=== PATIENT | female | born 1970 | race Caucasian/White ===

== ENCOUNTER 2022-08-25 21:38 | Emergency (ER) | payer MEDICARE, MEDICAID, SELFPAY ==
[2022-08-25 21:57] VITALS: BP 141/101; PULSE 99; RESP 20; TEMP 36.5; O2SAT 98; BMI 37.1
--- NOTE | 2022-08-25 22:15 | ED_ITS ---
HPI - Wound/Laceration General Time Seen by Provider: 22:15 Date Seen: 08/25/22 Chief Complaint: Laceration/Wound Stated Complaint: cut on left pointer middle finger tip. Time Seen by Provider: 08/25/22 21:43 Source: patient and RN notes reviewed Mode of arrival: ambulatory Limitations: no limitations History of Present Illness HPI narrative: Patient is a 52-year-old female coming in to the ER with lacerations sustained to her left 2nd and 3rd fingers. She was using an Exacto knife to cut something and cut her fingers. Her left 2nd finger is the deep wrist and the worse. She thinks that 3rd finger is just a small cut and really stopped bleeding as it had super glue on it as well. Her 2nd finger did bleed a lot. Denies any numbness tingling. She believes her tetanus is way overdue and would have it updated today. Related Data Home Medications Medication Instructions Recorded Confirmed acetaminophen 500 mg tablet 500 mg PO Q6H 08/25/22 08/25/22 apremilast 30 mg tablet (Otezla) 30 mg PO 08/25/22 aspirin 81 mg chewable tablet 1 tab PO DAILY 08/25/22 08/25/22 buspirone 30 mg tablet 30 mg PO DAILY 08/25/22 08/25/22 celecoxib 100 mg capsule (Celebrex) 100 mg PO BID 08/25/22 08/25/22 doxylamine succinate 25 mg tablet 12.5 - 25 mg PO QHS PRN 08/25/22 08/25/22 (Unisom (doxylamine)) duloxetine 60 mg capsule,delayed 120 mg PO DAILY 08/25/22 08/25/22 release epinephrine 0.3 mg/0.3 mL 0.3 mg IM .each time PRN 08/25/22 08/25/22 injection, auto-injector gabapentin 600 mg tablet 600 mg PO Q12H 08/25/22 08/25/22 ibuprofen 800 mg tablet 800 mg PO Q8H 08/25/22 08/25/22 lisinopril 2.5 mg tablet 2.5 mg PO DAILY 08/25/22 08/25/22 loratadine 10 mg tablet 20 mg PO Q24H 08/25/22 08/25/22 lorazepam 0.5 mg tablet 0.5 - 1 mg PO Q8H PRN 08/25/22 08/25/22 lorazepam 1 mg tablet 1 mg PO QHS 08/25/22 08/25/22 metformin 500 mg tablet 500 mg PO DAILY 08/25/22 08/25/22 omeprazole 40 mg capsule,delayed 40 mg PO DAILY 08/25/22 08/25/22 release risankizumab-rzaa 150 mg/mL 150 mg subcut Q12W 08/25/22 08/25/22 subcutaneous pen injector (Skyrizi) semaglutide 0.25 mg or 0.5 mg (2 0.25 mg subcut QWEEK 08/25/22 08/25/22 mg/1.5 mL) subcutaneous pen injector (Ozempic) topiramate 50 mg tablet (Topamax) 100 mg PO QHS 08/25/22 08/25/22 tramadol 50 mg tablet 50 mg PO Q8H 08/25/22 08/25/22 Allergies Allergy/AdvReac Type Severity Reaction Status Date / Time [id number]-CfG Reductase Allergy Severe suicidal Verified 08/25/22 21:51 Inhibitor thoughts trazodone Allergy Severe suicidal Verified 08/25/22 21:51 ideation walnut Allergy Unknown Verified 08/25/22 21:51 Review of Systems Narrative: As per HPI [facility] Medical History (Updated 08/25/22 @ 22:42 by Zoraida Kebede MD) Adjustment disorder with depressed mood Agoraphobia with panic attacks Androgenic alopecia BPPV (benign paroxysmal positional vertigo) Chronic GERD Controlled type 2 diabetes mellitus without complication, with long-term current use of insulin Depression Dysphagia, unspecified Generalized anxiety disorder HTN (hypertension) IBS (irritable bowel syndrome) Impaired fasting glucose Iron deficiency anemia Irritable bowel syndrome with both constipation and diarrhea Migraine with status migrainosus, not intractable Morbid obesity Muscular deconditioning Nightmare Numbness and tingling in left arm Orthostatic hypotension SIRIA (obstructive sleep apnea) PCOS (polycystic ovarian syndrome) Plantar fasciitis PMDD (premenstrual dysphoric disorder) POTS (postural orthostatic tachycardia syndrome) Psoriasis, unspecified PTSD (post-traumatic stress disorder) Pulmonary nodule RLS (restless legs syndrome) Seasonal affective disorder Suicidal ideations Tachycardia, unspecified Tobacco use disorder Vitamin D deficiency Surgical History (Updated 08/25/22 @ 22:10 by Alida Becerril RN) H/O total hysterectomy H/O: hysterectomy History of salpingo-oophorectomy S/P breast lumpectomy Status post open reduction and internal fixation (ORIF) of fracture Social History Smoking Status: Never smoker Do you use any of these nicotine containing products: None Second hand tobacco smoke exposure: No How often do you have a drink containing alcohol: never How often do you have six or more drinks on one occasion: Never AUDIT-C Alcohol total score: 0 Non-prescribed substance use: denies use Exam Const: Vital Signs, click to edit/add: Vital Signs - 24 hr 08/25/22 21:57 Temperature 97.7 F Pulse Rate [Pulse Oximeter] 99 Respiratory Rate 20 Blood Pressure [Ri ght Forearm] 141/101 H Pulse Oximetry 98 Documenting provider has reviewed patient's vital signs: yes Common normals: no apparent distress Extremity: Other: On the pad of the left 2nd finger along the lateral edge there is no En situated 3 force cm laceration into the subcutaneous tissue. It does start actively bleeding again as it opened up the wound edges. I do think that this should be sutured. On the lateral side of the 3rd pad of the finger, there is a small about 2 mm cut that is just very superficial, not bleeding. Patient opted to let this heal on its own and not have any sutures. I do think that is reasonable. She had full range of motion of her fingers, neurovascular intact but the 2nd finger did start actively bleeding once I manipulated it. Course Vital Signs Vital signs: Initial Vital Signs Temperature 97.7 F 08/25/22 21:57 Temperature Source Temporal Artery Scan 08/25/22 21:57 Pulse Rate 99 08/25/22 21:57 Respiratory Rate 20 08/25/22 21:57 Blood Pressure 141/101 H 08/25/22 21:57 Blood Pressure Mean 114 08/25/22 21:57 Pulse Oximetry 98 08/25/22 21:57 Vital Signs Temperature 97.7 F 08/25/22 21:57 Pulse Rate 99 08/25/22 21:57 Respiratory Rate 20 08/25/22 21:57 Blood Pressure 141/101 H 08/25/22 21:57 Pulse Oximetry 98 08/25/22 21:57 Temperature 97.7 F 08/25/22 21:57 Pulse Rate 99 08/25/22 21:57 Respiratory Rate 20 08/25/22 21:57 Blood Pressure 141/101 H 08/25/22 21:57 Pulse Oximetry 98 08/25/22 21:57 Critical Care Time Critical Care Time Critical Care Time: No Discharge Plan Discharge Clinical Impression: Finger laceration Condition: Stable Instructions: Care For Your Stitches (ED), Finger Laceration (ED) Additional Instructions: May shower and wash hands but should otherwise keep clean and dry until wounds are healed. Use bandages and bacitracin to the wounds on the fingers to keep clean while you are out in public or up and about during the day. May need to use bandages at night if they are draining any fluid at all. Need to schedule a clinic appointment in about 7-10 days to assess the wound on the left 2nd finger for suture removal. If there are any concerns for infection, please seek re- evaluation. Prescriptions: No Action Otezla 30 mg tablet 30 mg PO acetaminophen 500 mg tablet 500 mg PO Q6H lorazepam 0.5 mg tablet 0.5 - 1 mg PO Q8H PRN loratadine 10 mg tablet 20 mg PO Q24H metformin 500 mg tablet 500 mg PO DAILY lisinopril 2.5 mg tablet 2.5 mg PO DAILY gabapentin 600 mg tablet 600 mg PO Q12H lorazepam 1 mg tablet 1 mg PO QHS ibuprofen 800 mg tablet 800 mg PO Q8H tramadol 50 mg tablet 50 mg PO Q8H topiramate [Topamax] 50 mg tablet 100 mg PO QHS omeprazole 40 mg capsule,delayed release(DR/EC) 40 mg PO DAILY Ozempic 0.25 mg or 0.5 mg(2 mg/1.5 mL) pen injector 0.25 mg subcut QWEEK Rx Instructions: for 4 doses Skyrizi 150 mg/mL pen injector 150 mg subcut Q12W epinephrine 0.3 mg/0.3 mL auto-injector 0.3 mg IM .each time PRN duloxetine 60 mg capsule,delayed release(DR/EC) 120 mg PO DAILY Unisom (doxylamine) 25 mg tablet 12.5 - 25 mg PO QHS PRN celecoxib [Celebrex] 100 mg capsule 100 mg PO BID aspirin 81 mg tablet,chewable 1 tab PO DAILY buspirone 30 mg tablet 30 mg PO DAILY Stand Alone Forms: My[facility] Info Instructions Procedures Laceration Laceration 1: Pre procedure diagnosis: Left 2nd finger laceration Post procedure diagnosis: Same Written consent by: patient Site marking: not applicable Verification/time out: correct patient, correct site and correct procedure Name of person performing procedure: Zoraida Kebede Site: hand (Specifically left 2nd finger) Side (If applicable): left Size (cm): 0.75 Description: linear and clean Depth: simple, single layer Local Anesthetic: lidocaine 1% and with epi Amount of anesthesia used (mL): 5 (5 mL were drawn up but only about 1.75 mL was used locally around the wound.) Pre-repair: wound explored, irrigated extensively and deep structures intact Skin layer closed with: other (Ethilon) Size (cm): 4-0 Number of sutures: 3 Technique: simple, interrupted Estimated blood loss (if any): none Conclusion: patient tolerated procedure
[2022-08-25] MEDS: TETANUS/DIPHTH/PERTUSSIS 0.5 ML SYRINGE IM (22:38)
== END 2022-08-25 23:03 | disposition home or self-care (01) ==
LOC: ED 22:43
PROVIDERS: Emergency Provider Family Medicine; PCP Physician Assistant Medical
DX: S61.210A Laceration without foreign body of right index finger without damage to nail, initial encounter (principal); W26.0XXA Contact with knife, initial encounter
CPT/HCPCS: 12001; 90471; 90715; 99283

== ENCOUNTER 2022-09-18 02:00 | Emergency (ER) | payer MEDICARE, MEDICAID, SELFPAY ==
[2022-09-18 02:16] VITALS: BP 133/98; PULSE 91; RESP 18; TEMP 36.7; O2SAT 99; BMI 37.3
--- NOTE | 2022-09-18 02:51 | ED_ITS ---
HPI - Wound/Laceration General Chief Complaint: Laceration/Wound Stated Complaint: Left arm injury, mental health Time Seen by Provider: 09/18/22 02:10 Source: patient Mode of arrival: ambulatory Limitations: no limitations History of Present Illness HPI narrative: 52-year-old female with known history of anxiety and PTSD presents after impulsive self injury to left forearm. She reports that she has been under i ncreased stress lately and had a verbal dispute with her live-in roommate/significant other. I get the impression that their arrangements is romantically complex. Anyway, after arguing with her roommate, she went into her room in frustration, grabbed an Exacto knife which she has for crafts and quickly stabbed herself in the left forearm 3 times. She noted immediate bleeding. She was not with the intent to harm herself and especially not to kill herself. She does struggle with ongoing suicidal issues but states that this was purely impulsive. She called her therapist and they reviewed her safety plan, felt like she was not at a significant threat to herself. She attends therapy 4 days per week, she has a social worker aide worker coming tomorrow to help her with organization and home projects. She feels like she has adequate support and is in a very positive place overall. She is disappointed with her health in the impulsive movements today. She says that she does a lot of craft and this is helpful for her with therapy but she does not typically store the supplies in her room and thinks that tomorrow would be a good day to make sure that all of that is moved into the appropriate place again. Lacks 10 calm right now. She comes to the ED because she was concerned that 1 of the lesions had not stopped bleeding. She did call [phone] for additional guidance because the lesion was still bleeding and was advised to come into the emergency department. Patient did take it among herself to wrap the lesions tightly prior to coming to the ED and she noticed that the bleeding did stop pretty quickly with this intervention. She has no difficulty moving her hands or arms, notes no numbness or tingling. As stated, the bleeding has ceased. She does not take anticoagulants. She denies any alcohol or toxic substance ingestion tonight. She has only had 1 prior cutting episode many years ago. She denies any recent changes to her medications. Past medical history is notable for depression and anxiety, diabetes, hypertension. Home medications reviewed and updated from the [facility] records. Socially receiving mental health services, no illicit substances or abuse. ROS is notable for the skin symptoms as described above. Notable for the mental health concerns which are stable. No other musculoskeletal, neurological or cardiovascular changes. Related Data Home Medications Medication Instructions Recorded Confirmed acetaminophen 500 mg tablet 500 mg PO Q6H 08/25/22 08/25/22 apremilast 30 mg tablet (Otezla) 30 mg PO 08/25/22 aspirin 81 mg chewable tablet 1 tab PO DAILY 08/25/22 08/25/22 buspirone 30 mg tablet 30 mg PO DAILY 08/25/22 08/25/22 celecoxib 100 mg capsule (Celebrex) 100 mg PO BID 08/25/22 08/25/22 doxylamine succinate 25 mg tablet 12.5 - 25 mg PO QHS PRN 08/25/22 08/25/22 (Unisom (doxylamine)) duloxetine 60 mg capsule,delayed 120 mg PO DAILY 08/25/22 08/25/22 release epinephrine 0.3 mg/0.3 mL 0.3 mg IM .each time PRN 08/25/22 08/25/22 injection, auto-injector gabapentin 600 mg tablet 600 mg PO Q12H 08/25/22 08/25/22 ibuprofen 800 mg tablet 800 mg PO Q8H 08/25/22 08/25/22 lisinopril 2.5 mg tablet 2.5 mg PO DAILY 08/25/22 08/25/22 loratadine 10 mg tablet 20 mg PO Q24H 08/25/22 08/25/22 lorazepam 0.5 mg tablet 0.5 - 1 mg PO Q8H PRN 08/25/22 08/25/22 lorazepam 1 mg tablet 1 mg PO QHS 08/25/22 08/25/22 metformin 500 mg tablet 500 mg PO DAILY 08/25/22 08/25/22 omeprazole 40 mg capsule,delayed 40 mg PO DAILY 08/25/22 08/25/22 release risankizumab-rzaa 150 mg/mL 150 mg subcut Q12W 08/25/22 08/25/22 subcutaneous pen injector (Juju) semaglutide 0.25 mg or 0.5 mg (2 0.25 mg subcut QWEEK 08/25/22 08/25/22 mg/1.5 mL) subcutaneous pen injector (Ozempic) topiramate 50 mg tablet (Topamax) 100 mg PO QHS 08/25/22 08/25/22 tramadol 50 mg tablet 50 mg PO Q8H 08/25/22 08/25/22 Allergies Allergy/AdvReac Type Severity Reaction Status Date / Time Cacmxsv-[id number] Reductase Allergy Severe suicidal Verified 08/25/22 21:51 Inhibitor thoughts trazodone Allergy Severe suicidal Verified 08/25/22 21:51 ideation walnut Allergy Unknown Verified 08/25/22 21:51 paroxetine [From Paxil] AdvReac Intermediate Verified 09/18/22 02:22 [facility] Medical History (Updated 09/18/22 @ 02:47 by Nicky Prince MD) Adjustment disorder with depressed mood Agoraphobia with panic attacks Androgenic alopecia BPPV (benign paroxysmal positional vertigo) Chronic GERD Controlled type 2 diabetes mellitus without complication, with long-term current use of insulin Depression Dysphagia, unspecified Generalized anxiety disorder HTN (hypertension) IBS (irritable bowel syndrome) Impaired fasting glucose Iron deficiency anemia Irritable bowel syndrome with both constipation and diarrhea Migraine with status migrainosus, not intractable Morbid obesity Muscular deconditioning Nightmare Numbness and tingling in left arm Orthostatic hypotension SIRIA (obstructive sleep apnea) PCOS (polycystic ovarian syndrome) Plantar fasciitis PMDD (premenstrual dysphoric disorder) POTS (postural orthostatic tachycardia syndrome) Psoriasis, unspecified PTSD (post-traumatic stress disorder) Pulmonary nodule RLS (restless legs syndrome) Seasonal affective disorder Suicidal ideations Tachycardia, unspecified Tobacco use disorder Vitamin D deficiency Surgical History (Updated 08/25/22 @ 22:10 by Alida Becerril RN) H/O total hysterectomy H/O: hysterectomy History of salpingo-oophorectomy S/P breast lumpectomy Status post open reduction and internal fixation (ORIF) of fracture Social History Smoking Status: Never smoker Do you use any of these nicotine containing products: None Second hand tobacco smoke exposure: No How often do you have a drink containing alcohol: never How often do you have six or more drinks on one occasion: Never AUDIT-C Alcohol total score: 0 Non-prescribed substance use: denies use Exam Const: Vital Signs, click to edit/add: Vital Signs - 24 hr 09/18/22 02:16 Temperature 98.1 F Pulse Rate [Pulse Oximeter] 91 Respiratory Rate 18 Blood Pressure [Ri t Upper Arm] 133/98 H Pulse Oximetry 99 Oxygen Delivery Me thod Room Air Documenting provider has reviewed patient's vital signs: yes Common normals: no apparent distress General appearance: cooperative, comfortable and well kempt HENMT: Common normals: normocephalic Head and scalp: normocephalic Eye: Common normals: conjunctivae normal and no scleral icterus Conjunctiva: conjunctiva(e) normal Other: Normal visual tracking Resp: Common normals: normal respiratory effort Effort & inspection: able to speak in complete sentences Cardio: Other: Regular rate and rhythm with 2+ radial pulses bilaterally. Extremity: Other: Normal range of motion of wrist on left, normal range of motion of elbow. Normal range of motion of all fingers with normal strength. Normal tendon function. Neuro: Motor exam: no tremor noted and no movement abnormalities noted Ot her: Normal sensory and motor exam of hand, wrist, elbow on left Psych: Common normals: speech normal Appearance: well kempt Speech: normal speech Insight: insight good Judgement: judgment good Other: Thought process logical, well organized. Skin: Narrative: Three Narrow stab wounds to the anterior surface of the forearm on the left consistent with mechanism described. These are less than a mm wide and are about 6 mm long each. They are non bleeding, no gaping. Mild surrounding bruising only. There is a very superficial horizontal scratch on the forearm also which is not bleeding. No other scars or injuries consistent with repeated self-injury. Course Vital Signs Vital signs: Initial Vital Signs Temperature 98.1 F 09/18/22 02:16 Temperature Source Temporal Artery Scan 09/18/22 02:16 Pulse Rate 91 09/18/22 02:16 Respiratory Rate 18 09/18/22 02:16 Blood Pressure 133/98 H 09/18/22 02:16 Blood Pressure Mean 109 09/18/22 02:16 Blood Pressure Position Sitting 09/18/22 02:16 Pulse Oximetry 99 09/18/22 02:16 Oxygen Delivery Method 09/18/22 02:16 Vital Signs Temperature 98.1 F 09/18/22 02:16 Pulse Rate 91 09/18/22 02:16 Respiratory Rate 18 09/18/22 02:16 Blood Pressure 133/98 H 09/18/22 02:16 Pulse Oximetry 99 09/18/22 02:16 Oxygen Delivery Method 09/18/22 02:16 Temperature 98.1 F 09/18/22 02:16 Pulse Rate 91 09/18/22 02:16 Respiratory Rate 18 09/18/22 02:16 Blood Pressure 133/98 H 09/18/22 02:16 Pulse Oximetry 99 09/18/22 02:16 Oxygen Delivery Method 09/18/22 02:16 MDM - Wound/Laceration MDM Narrative Medical decision making narrative: A reviewed patient safety plan, confirmed that she is not actively suicidal. She is remorseful and has good insight. Her wounds will be cleansed with soap and water, antibiotic ointment applied and Band-Aids. She will keep her health social work professor visit for tomorrow, keep all of her upcoming therapy appointments and make no changes to her medications. She removal pref supplies from her room so this can be a safe place for her to decompress her feelings. I have ensured that she has no access to firearms or other harmful things that could be used impulsively. She does confirm that she feels safe going home tonight and I agree with her plan. Reviewed alarm symptoms that would warrant ED followup. Discharge Plan Discharge Clinical Impression: Laceration Patient Disposition: Home w/ Parent or Adult Condition: Improved Instructions: Laceration (ED) Additional Instructions: There are no signs of persistent bleeding from your wounds. I do suspect that there was some bleeding from the vein under the skin but this appears to have s topped. Try not to over use the arm for the next 6-8 hours to allow that clot to fully mature, then you may resume all typical activities. There are no signs of tendon, nerve or arterial damage. We discussed your safety plan and reviewed your planned with your therapist. I agree that we should remove any objects from your that could be used in an impulsive manner like tonight. Your room should be year safe space where you can go to decompress her feelings and I would be better if you did not have potentially dangerous objects stored there. Continue your medications as normal. We have applied antibiotic ointment and Band-Aids to your wound, please leave these on for the next 12 hours. You may then remove the bandages and wash gently with soap and water, dry fully, reapply antibiotic ointment and cover with a Band-Aid again. Ideally, keep this covered for the 1st 3 days, then you may leave open to air. There is likely to be bruising and tenderness when you use the wrist and hand for a couple of weeks. Any severe signs of infection, drainage from the wounds, fevers or significant red streaking up the arm would be concerning and should be evaluated within 12 hours. Activity Level: Activity as Tolerated Discharge Diet: Regular Prescriptions: No Action Otezla 30 mg tablet 30 mg PO acetaminophen 500 mg tablet 500 mg PO Q6H lorazepam 0.5 mg tablet 0.5 - 1 mg PO Q8H PRN loratadine 10 mg tablet 20 mg PO Q24H metformin 500 mg tablet 500 mg PO DAILY lisinopril 2.5 mg tablet 2.5 mg PO DAILY gabapentin 600 mg tablet 600 mg PO Q12H lorazepam 1 mg tablet 1 mg PO QHS ibuprofen 800 mg tablet 800 mg PO Q8H tramadol 50 mg tablet 50 mg PO Q8H topiramate [Topamax] 50 mg tablet 100 mg PO QHS omeprazole 40 mg capsule,delayed release(DR/EC) 40 mg PO DAILY Ozempic 0.25 mg or 0.5 mg(2 mg/1.5 mL) pen injector 0.25 mg subcut QWEEK Rx Instructions: for 4 doses Skyrizi 150 mg/mL pen injector 150 mg subcut Q12W epinephrine 0.3 mg/0.3 mL auto-injector 0.3 mg IM .each time PRN duloxetine 60 mg capsule,delayed release(DR/EC) 120 mg PO DAILY Unisom (doxylamine) 25 mg tablet 12.5 - 25 mg PO QHS PRN celecoxib [Celebrex] 100 mg capsule 100 mg PO BID aspirin 81 mg tablet,chewable 1 tab PO DAILY buspirone 30 mg tablet 30 mg PO DAILY Follow Up/Referrals: Michelle Mohan PA-C [Primary Care Provider] - Stand Alone Forms: [facility] Info Instructions
--- OUTSIDE RECORDS SUMMARY | 2022-09-18 03:00 | XMS_ITS | Clinical Summary ---
:1970 Author Organization [employer] [facility] [employer] [place] [address] Care Team Providers Name Role Phone Michelle Mohan Primary Care Provider [phone] [facility], [place] Unavailable [phone] Allergies Active Allergy Reactions Severity Noted Date Comments Paroxetine Other - Describe In High 04/28/2008 Manic ep isode Comment Field Locvhnr-Eeq-Byr Other - Describe In 06/17/2021 Suici de thoughts Reductase Inhibitors Comment Field Trazodone Other - Describe In 07/05/2022 Suicidal ideation Comment Field Moodus *Unknown 08/29/2021 Medications Medication Sig Dispensed Refills Start End Status Date Date gabapentin Take 4 Capsules 0 02/03/20 Act bo (NEURONTIN) 300 mg by mouth at 21 capsule bedtime. mometasone 0.1% Apply topically 45 g 0 02/23/20 Active (ELOCON 0.1% CREAM) to affected 21 0.1 % area(s) once creamIndications: daily. Psoriasis LORazepam (ATIVAN) TAKE ONE TABLET 30 Tablet 0 04/15/20 Active 1 mg BY MOUTH AT 21 tabletIndications: BEDTIME Anxiety Blood Pressure Take blood 1 Each 0 06/29/20 Acti ve MonitorIndications: pressure daily. 21 HTN (hypertension) DULoxetine TAKE TWO 180 Capsule 3 08/05/20 Active (CYMBALTA) 60 mg CAPSULES BY 21 Delayed-release MOUTH EVERY DAY capsuleIndications: Depression, major, single episode, severe (HC), PTSD (post-traumatic stress disorder), Agoraphobia with panic attacks durable medical Grab bars for 4 Each 0 09/02/20 Active equipment tub and shower, 21 (DME)Indications: two for each. Osteoarthritis of right hip, unspecified osteoarthritis type, Balance problem, Weakness durable medical Ushaped grab bar 1 Each 0 09/02/20 Active equipment for tub (for 21 (DME)Indications: exterior to Osteoarthritis of assist with right hip, getting into the unspecified tub). osteoarthritis type, Balance problem, Weakness durable medical Slide bar for 2 Each 0 09/02/20 Active equipment shower head for 21 (DME)Indications: tub and shower Osteoarthritis of right hip, unspecified osteoarthritis type, Balance problem, Weakness durable medical Draining safety 1 Each 0 09/02/20 Active equipment mat for tub 21 (DME)Indications: Osteoarthritis of right hip, unspecified osteoarthritis type, Balance problem, Weakness durable medical Safety treads 2 Each 0 09/02/20 Active equipment for shower and 21 (DME)Indications: tub Osteoarthritis of right hip, unspecified osteoarthritis type, Balance problem, Weakness durable medical Portable bath 1 Each 0 09/02/20 Active equipment stackable bath 21 (DME)Indications: step 4 Osteoarthritis of right hip, unspecified osteoarthritis type, Balance problem, Weakness Shower For home use. 1 Each 0 09/02/20 Active ChairIndications: With back and 21 Osteoarthritis of with arms (260# right hip, weight). unspecified osteoarthritis type, Balance problem, Weakness durable medical Floor pad to go 1 Each 0 09/02/20 Active equipment next to bed. 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 Controlled type 2 diabetes mellitus without complication, unspecified whether terminal carman insulin use (HC) gabapentin Take 2 Tablets 0 11/16/20 Acti ve (NEURONTIN) 600 mg by mouth 2 times 21 tablet daily. busPIRone (BUSPAR) TAKE ONE TABLET 90 Tablet 0 12/15/19 Active 30 mg BY MOUTH EVERY 22 tabletIndications: DAY Depression, major, single episode, severe (HC), PTSD (post-traumatic stress disorder), Agoraphobia with panic attacks loratadine Take 2 Tablets 180 Tablet 3 12/21/19 Act bo (CLARITIN) 10 mg (20 mg) by mouth 22 tabletIndications: once daily. Allergic rhinitis, unspecified seasonality, unspecified trigger acetaminophen Take 1 Tablet 100 Tablet 5 12/28/19 A ctive (TYLENOL EXTRA (500 mg) by 22 STRGTH) 500 mg mouth every 6 tabletIndications: hours. Max Arthralgia, acetaminophen unspecified joint dose: 4000mg in 24 hrs. traMADoL (ULTRAM) TAKE ONE TABLET 21 Tablet 0 02/11/20 Active 50 mg BY MOUTH THREE 22 tabletIndications: TIMES A DAY IF Abdominal pain, NEEDED FOR PAIN lower cholecalciferol, TAKE ONE TABLET 90 Tablet 2 02/17/20 Active Vitamin D3, 2,000 BY MOUTH EVERY 22 unit DAY tabletIndications: Vitamin D deficiency aspirin chewable 81 CHEW AND SWALLOW 90 Tablet 2 02/17/20 Active mg chewable ONE TABLET BY 22 tabletIndications: MOUTH EVERY DAY Controlled type 2 WITH A MEAL diabetes mellitus without complication, unspecified whether intermediate insulin use (HC) ibuprofen (ADVIL; Take 1 Tablet 90 Tablet 3 02/25/20 Active MOTRIN) 800 mg (800 mg) by 22 tabletIndications: mouth 3 times Arthralgia, daily with unspecified joint, meals. Preop general physical exam triamcinolone APPLY TOPICALLY 80 g 3 05/08/20 Active (ARISTOCORT; TO AFFECTED 22 KENALOG) 0.1 % AREA(S) THREE creamIndications: TIMES DAILY Inverse psoriasis ALTERATE USE BETWEEN OINTMENT AND CREAM EACH WEEK triamcinolone APPLY TOPICALLY 80 g 3 05/08/20 Active (ARISTOCORT) 0.1 % TO AFFECTED 22 ointmentIndications AREA(S) THREE : Inverse psoriasis TIMES DAILY ALTERNATE USE BETWEEN OINTMENT AND CREAM EACH WEEK risankizumab-rzaa Inject 150 mg 1 mL 0 06/09/20 Active (Skyrizi) 150 mg/mL subcutaneous 22 pnijIndications: every 12 weeks. Psoriasis 1 injection every 12 weeks semaglutide Inject 0.25 mg 1.5 mL 3 06/13/20 Act bo (OZEMPIC) 2 mg/1.5 subcutaneous 22 mL (0.25mg or 0.5mg once weekly. X 4 doses) weeks, then penIndications: increase to 0.5 Controlled type 2 mg subcutaneous diabetes mellitus once weekly x 4 without weeks. complication, without long-term current use of insulin (HC) EPINEPHrine Inject 0.3 mg (1 2 Each 3 06/19/20 A ctive (EPIPEN) 0.3 mg/0.3 pen) 22 mL intramuscular auto-injectorIndica each time if tions: Nut allergy needed for Allergic Reaction. celecoxib Take 1 Capsule 60 Capsule 0 06/27/20 Acti ve (CELEBREX) 100 mg (100 mg) by 22 capsuleIndications: mouth in the Arthralgia, morning and 1 unspecified joint Capsule (100 mg) in the evening. Take with meals. metFORMIN Take 1 Tablet 90 Tablet 3 07/03/20 Active (GLUCOPHAGE) 500 mg (500 mg) by 22 tabletIndications: mouth once daily Controlled type 2 with evening diabetes mellitus meal. without complication, without long-term current use of insulin (HC) doxylamine (UNISOM) Take 0.5-1 30 Tablet 0 07/05/20 Active 25 mg Tablets (12.5-25 22 tabletIndications: mg) by mouth at Insomnia, bedtime if idiopathic needed for Sleep. topiramate TAKE 2 TABLETS 120 Tablet 0 08/18/20 Act bo (TOPAMAX) 50 mg BY MOUTH AT 22 tabletIndications: BEDTIME. Adjustment disorder with depressed mood, PTSD (post-traumatic stress disorder), Current severe episode of major depressive disorder without psychotic features without prior episode (HC) omeprazole TAKE ONE CAPSULE 30 Capsule 0 08/24/20 A ctive (PRILOSEC) 40 mg BY MOUTH EVERY 22 Delayed-Release DAY BEFORE A capsuleIndications: MEAL Gastroesophageal reflux disease, unspecified whether esophagitis present clobetasol cream Apply topically 60 g 3 09/04/20 Active 0.05% (TEMOVATE) to affected 22 0.05 % area(s) two creamIndications: times daily. Psoriasis LORazepam (ATIVAN) Take 1 Tablet 30 Tablet 0 09/05/20 Active 0.5 mg (0.5 mg) by 22 tabIndications: mouth every 6 Anxiety hours if needed for Anxiety. clindamycin 1% apply to 60 mL 2 09/06/20 Activ e (CLEOCIN-T) 1 % affected area(s) 22 lotionIndications: 2 times daily to Acne, unspecified face, arms and acne type neck clobetasol 0.05% apply a thin 50 mL 1 09/08/20 Active TOPICAL (TEMOVATE) layer, precise 22 0.05 % external application to solutionIndications the scalp daily : Psoriasis as needed for itching ketoconazole 2% Lather on damp 120 mL 5 09/11/20 Active shampoo (NIZORAL) 2 scalp, leave on 22 % for 5min, then shampooIndications: rinse with Scalp psoriasis water. Use 1-3 times per week. ketoconazole 2% Lather on damp 1 Bottle 3 06/03/20 Discontinued shampoo (NIZORAL) 2 scalp, leave on 022 (Reorder % for 5min, then (E-ca ncel not shampooIndications: rinse with sent)) Scalp psoriasis water. clobetasol 0.05% Apply topically 50 mL 3 09/02/20 Discontinued TOPICAL (TEMOVATE) to affected 022 (*Medication 0.05 % external area(s) 2 times adjustment) solutionIndications daily. : Scalp psoriasis omeprazole Take 1 Capsule 90 Capsule 3 09/09/20 Dis continued (PRILOSEC) 40 mg (40 mg) by mouth 022 Delayed-Release once daily capsuleIndications: before a meal. Gastroesophageal reflux disease, unspecified whether esophagitis present LORazepam (ATIVAN) TAKE ONE TO TWO 30 Tablet 0 12/16/1909/04 Discontinued 0.5 mg TABLETS BY MOUTH 022 (Re order tabIndications: THREE TIMES (E -cancel not Anxiety DAILY NEEDED sent )) ketoconazole 2% Lather on damp 120 mL 5 09/04/20 Discontinued shampoo (NIZORAL) 2 scalp, leave on 022 (Reorder % for 5min, then (E-ca ncel not shampooIndications: rinse with sent)) Scalp psoriasis water. LORazepam (ATIVAN) Take 1-4 tabs as 30 Tablet 0 09/04/2008/26 Discontinued 0.5 mg needed, Not to 22 022 (Reor allison tabIndications: exceed 6 mg (E -cancel not Anxiety daily sent)) clobetasol 0.05% apply a thin 50 mL 1 09/06/20 Discontinued TOPICAL (TEMOVATE) layer, precise 22 022 (Reorder 0.05 % external application to (E-cancel not solutionIndications the scalp daily sent)) : Psoriasis as needed for itching Hospital, Clinic, or Other Ordered Dose Route Frequency Start Date End Date Status Facility Administered Medication ferumoxytoL (FERAHEME) 510 510 mg IV ONE TIME 08/22/2022 Ended mg/17 mL (30 mg/mL) injection 510 mgIndications: Iron deficiency anemia, unspecified iron deficiency anemia type ferumoxytoL (FERAHEME) 510 510 mg IV ONE TIME 08/28/2022 Ended mg/17 mL (30 mg/mL) injection 510 mgIndications: Iron deficiency anemia, unspecified iron deficiency anemia type Active Problems Problem Noted Date Orthostatic hypotension 05/03/2022 Dysphagia 05/03/2022 Psoriasis 05/03/2022 Muscular deconditioning 05/03/2022 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 S/P hysterectomy 05/03/2022 Suicidal ideation 05/03/2022 POTS (postural orthostatic tachycardia syndrome) 05/03 EVELIA (generalized anxiety disorder) 05/03/2022 Numbness and tingling in left arm 05/03/2022 Pulmonary nodule 05/03/2022 Overview: left lung Seasonal affective disorder 05/03/2022 Nightmare 05/03/2022 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 Plantar fasciitis 05/03/2022 Migraine with status migrainosus, not intractable 06/2022 Benign paroxysmal positional vertigo 05/03/2022 Chronic GERD 05/03/2022 Irritable bowel syndrome 05/03/2022 H/O total hysterectomy 03/22/2022 Controlled type 2 diabetes mellitus without complicati on, without 08/09/2021 long-term current use of insulin Irritable bowel syndrome with both constipation and di arrhea 06/29/2021 Iron deficiency anemia 11/23/2015 SIRIA 09/23/2015 AHI-23 10/04/2015 Restless legs syndrome (RLS) 10/04/2015 PTSD (post-traumatic stress disorder) 10/04/2015 Tobacco use disorder 06/16/2014 PCOS (polycystic ovarian syndrome) 10/22/2013 Depression 10/22/2013 HTN (hypertension) 05/16/2013 PMDD (premenstrual dysphoric disorder) 12/25/2012 Vitamin D deficiency 11/20/2011 Morbid obesity 12/07/2010 Impaired fasting glucose 12/06/2010 Overview: See result note 12/06/2010 Adjustment disorder with depressed mood 06/09/2008 FAMILY HISTORY OF OVARIAN MALIGNANCY 06/09/2008 Tachycardia, unspecified 07/20/2007 Overview: nl echo 2002 Resolved Problems Problem Noted Date Resolved Date Vitamin D deficiency 06/16/2014 06/16/2014 Elevated BP 11/17/2011 05/16/2013 Encounters Date Type Specialty Care Team Description 09/14/2022 Refill Michelle Mohan Refill Requ BENJI Mccoy (Gabapentin 600 mg tablet ) 09/11/2022 Telephone Michelle Mohan Questions ( ketoconazole BENJI Barboza 2% shampoo (JOSELYN ORAL) 2 % shampoo/) 09/07/2022 Telephone Lakshmi Lopez Medication Man ageBENJI Chavez 09/06/2022 Office Visit Lakshmi Lopez Derm Problem BENJI Vilchis 09/06/2022 Refill Michelle Mohan Refill Requ BENJI Mccoy (Omeprazole) 09/06/2022 Travel 09/05/2022 Telephone Michelle Mohan Pharmacist Medication BENJI Barboza Management (ANDREEA azepam (ATIVAN) 0.5 mg tab) 09/04/2022 Office Visit Michelle Mohan Suture Husam dewayne (Remove BENJI Barboza stitches in L p ointer finger, was put in a week ago [place] ) 09/04/2022 Travel 08/30/2022 Procedure Only Cardiac, [place] Error-please disregard Nurse 08/28/2022 Nurse/Clinic Staff Only Infu pratima Therapy (Feraheme 2/2) 08/28/2022 Travel 08/23/2022 Refill Michelle Mohan Refill Requ BENJI Mccoy (Omeprazole) 08/22/2022 Nurse/Clinic Staff Only Infu pratima Therapy (Feraheme 1/2) 08/22/2022 Travel 08/16/2022 Refill Michelle Mohan Refill Requ BENJI Mccoy (Topiramate) 08/11/2022 Telephone Salomón Capps D EGD AT [facility] 08/10/2022 Orders Only Raj Andrade Abstract 08/09/2022 Telemedicine Michelle Mohan Telehealth (Next steps BENJI Barboza - go over resul ts) 08/09/2022 Telephone Michelle Mohan PA 08/09/2022 Telephone Michelle Mohan Infusion Th erapy BENJI Barboza (feraheme) 08/08/2022 Telephone Michelle Mohan Results (co ncerns) BENJI Barboza 08/04/2022 Orders Only Lab, [facility] 08/04/2022 Travel 08/04/2022 Nurse Triage Michelle Mohan Derm Proble m (abnormal BENJI Barboza moles); Fatigue ; Dizziness 07/26/2022 Telemedicine Michelle Mohan Telehealth (Having BENJI Barboza chest pains, fe lt like someone hit her in the chest with a ba seball bat, arm went n umb and tingly 4-5 days ago.then got be tter, still having benji ins randomly when c limbing stairs, etc. ) 07/21/2022 Telephone Michelle Mohan Outside Ord er (verbal BENJI Barboza orders) 07/07/2022 Telephone Michelle Mohan Prior Autho rization BENJI Barboza (doxylamine (UN JAMESON) 25 mg tablet (Avila ed) ) 07/05/2022 Telemedicine Michelle Mohan Medication Management BENJI Barboza (Discuss changi ng meds ???) 06/29/2022 Telephone Michelle Mohan Refill Requ BENJI Mccoy (Metformin 500 mg ) 06/28/2022 Telephone Micehlle Mohan Medication Management BENJI Barboza (reaction) 06/27/2022 Nurse Triage Michelle Mohan Suicidal Id eation (Was BENJI Barboza triaged 4 hrs. Ago. ) 06/27/2022 Nurse Triage Michelle Mohan Medication Problem BENJI Barboza 06/27[facility]20[facility] (Servandoio ns Regarding Medic ation ) 06/19/2022 Telemedicine Michelle Mohan Telehealth (Ask about BENJI Barboza procedure she i s having); Medica tion Management; Con cerns (Swollen lymph nodes); Derm Problem (R mateo under chin, ing rown hairs??) from Last 3 Months Immunizations Name Administration Dates Next Due Influenza, IIV3 (Age >=3 years) 08/18/2009 Influenza, IIV4 11/11/2021, 12/07/2015 Tuberculin (PPD) 12/07/2015 Family History Medical History Relation Name Comments Heart Disease Father Raul quadruple bypass Hypertension Father Raul Cancer-breast Maternal Aunt Heart Disease Maternal Uncle Chris CHF @ 50 yo Cancer Mother Kylie Ovarian Cancer-ovarian Mother Kylie Cancer Other 1 ovarian- three m aternal great aunts Other Other 2 cousin amyloidosis Cancer-breast Paternal Aunt 1 2 Hypertension Paternal Aunt 2 Heart Disease Paternal Uncle many w Heart Dis ease Heart Disease Sister Zenaida Barboza Cardiomyopathy a nd Polymyositis Relation Name Status Comments Father Raul Alive Maternal Aunt Maternal Uncle Chris Mother Kylie (Age 60) Other 1 Other 2 cousin Alive Paternal Aunt 1 2 Alive Paternal Aunt 2 Paternal Uncle Sister Zenaida Barboza Alive Social History Tobacco Use Types Packs/Day Years Used Date Former Smoker Cigarettes 1 5 Quit: 03/02/20 19 Smokeless Tobacco: Never Used Tobacco Cessation: Counseling Given: Yes Comments: 1 pack every day Alcohol Use Standard Drinks/Week Comments Not Currently 0 (1 standard drink = 0.6 oz pure alcoho l) occasional- twice a year Alcohol Habits Answer Date Recorded How often do you have a drink containing Not asked alcohol? How many drinks containing alcohol do you have Not asked on a typical day when you are drinking? How often do you have six or more drinks on Not asked one occasion? Comment: occasional- twice a year 11/11/2015 Sex Assigned at Date Recorded Not on file COVID-19 Exposure Response Date Recorded In the last 10 days, have you been in contact with No / Unsu re 09/06/2022 2:06 PM CDT someone who was confirmed or suspected to have Coronavirus/COVID-19? Obstetrics History Para Term AB IAB SAB Ectopic Multiple Living Live Births 2 2 2 0 0 0 0 0 2 Date Outcome GA Total Labor/2nd/3rd Weight Sex Delivery Anes PTL Jenifer A 1 A5 Name Clin Labor Term Term Comments x2 Last Filed Vital Signs Vital Sign Reading Time Taken Comments Blood Pressure 123/87 09/04/2022 3:50 PM CDT Pulse 108 09/04/2022 3:50 PM CDT Temperature 36.9 ??C (98.5 ??F) 02/24/2022 2:36 PM CDT Respiratory Rate 16 03/19/2016 4:13 AM CDT Oxygen Saturation 99% 08/28/2022 3:02 PM CDT Inhaled Oxygen Concentration - - Weight 117 kg (258 lb) 02/24/2022 2:36 PM CDT Height 173 cm (5' 8.11) 06/28/2016 10:40 AM CDT Body Mass Index 39.1 06/28/2016 10:40 AM CDT Plan of Treatment Upcoming Encounters Date Type Specialty Care Team Description 09/22/2022 [facility] [address] [facility] [place] [phone] (Wo rk[facility] 09/25/2022 Procedure Only Salomón Capps MD [address] [facility] [place] [phone] (Wo rk) 09/27/2022 Procedure Only Cardiac, [facility] Nurse 09/27/2022 Ancillary Procedure Health Maintenance Due Date Last Done Comments Pneumococcal series for age 19-64 1975 (1 - PCV) Tdap 1980 Hepatitis B series for Diabetes (1 1988 of 3 - Risk 3-dose series) Mammogram for age 45-75 2014 11/28/2012, 11/07/2012 Tetanus booster 11/26/2014 11/26/2004 (Completed outside of [facility]) BMI (ht and wt on same day) for 06/28/2017 06/28/2016, 03/27, age 18+ 03/19/2016, Additional history exists Zoster (shingles) series for age 0201/23/2019 50+ (1 of 2) COVID-19 vaccine series (4 - 01/06/2022 11/11/2021, 021, Booster for Pfizer series) 02/18/2021 Depression screening for age 12+ 07/08/2022 07/08/2021, 09/2021, 03/04/2021, Additional history exists Influenza for age 50-64 07/27/2022 11/11/2021, 12/07/2015, 08/18/2009 Lipids for age 45-75 02/24/2027 02/24/2022, 11/23/2015, 12/02/2012, Additional history exists Colonoscopy through age 75 03/28/2027 03/28/2017 Hepatitis C screening for age Completed 12/07/2015, 2013 18-79 Procedures Procedure Name Priority Date/Time Associated Comments Diagnosis C3 COMPLEMENT Add On 08/04/2022 3:49 PM Atypical ches t pain Results for this CDT SOB (shortness of procedure are in breath) on exert ion the results Arthralgia, section. unspecified join t Malar rash C4 COMPLEMENT Add On 08/04/2022 3:49 PM Atypical ches t pain Results for this CDT SOB (shortness of procedure are in breath) on exert ion the results Arthralgia, section. unspecified join t Malar rash CARDIOLIPIN ANTIBODY Add On 08/04/2022 3:49 PM Atypical chest pain Results for this CDT SOB (shortness of procedure are in breath) on exert ion the results Arthralgia, section. unspecified join t Malar rash DNA DOUBLE-STRANDED Add On 08/04/2022 3:49 PM Atypical chest pain Results for this (DSDNA) ANTIBODIES BY CDT SOB (shortness of p rocedure are in CRITHIDIA LUCILIAE IFA breath) o n exertion the results Arthralgia, section. unspecified join t Malar rash ANTI-STRICKLAND Add On 08/04/2022 3:49 PM Atypical ches t pain Results for this CDT SOB (shortness of procedure are in breath) on exert ion the results Arthralgia, section. unspecified join t Malar rash ANTINUCLEAR ANTIBODY Add On 08/04/2022 3:49 PM Atypical chest pain Results for this BY IFA CDT SOB (shortness of procedure are in breath) on exert ion the results Arthralgia, section. unspecified join t Malar rash CBC WITH AUTO Routine 08/04/2022 3:49 PM Swollen lymph nodes R esults for this DIFFERENTIAL CDT procedure are i n the results section. C-REACTIVE PROTEIN Routine 08/04/2022 3:49 PM Arthralgia, Res ults for this CDT unspecified joint procedure are in the results section. CBC WITH AUTO Routine 08/04/2022 3:49 PM Swollen lymph nodes R esults for this DIFFERENTIAL CDT procedure are i n the results section. HEMOGLOBIN A1C Routine 08/04/2022 3:49 PM Controlled type 2 Re sults for this CDT diabetes mellitus procedure are in without the results complication, section. without long-term current use of insulin (HC) SEDIMENTATION RATE Routine 08/04/2022 3:49 PM Arthralgia, Res ults for this CDT unspecified joint procedure are in the results section. FERRITIN Routine 08/04/2022 3:49 PM Iron deficiency Result s for this CDT anemia, unspecified procedur e are in iron deficiency the results anemia type section. from Last 3 Months Results (ABNORMAL) SEDIMENTATION RATE (08/04/2022 3:49 PM CDT) [facility] gist Method Time Signature SEDIMENTATION RATE 76 (H) <30 mm/hr 08/04/2022 [facility] [place] 10:01 PM CDT LABORATORY-HEMALATHA TRAL LABORATORY Specimen Anatomical Collection Method / Collection Time Recei jah Time (Source) Location / Volume Laterality Blood BLOOD SPECIMEN / Venipuncture / 08/04/2022 3:49 2021 3:50 Unknown Unknown PM CDT PM CDT Michelle LINARES HEMATOLOGY Performing Organization Address City/State/ZIP Code Phon e Number [facility] [id number] [place] [address] LABORATORY-CENTRAL 2000 LABORATORY ANTINUCLEAR ANTIBODY BY IFA (08/04/2022 3:49 PM CDT) [facility] Method Time Signature ANTINUCLEAR Negative Negative 08/10/2022 [facility] ANTIBODY (FELIPE) 2:32 PM CDT LABORATORY-CE N TRAL LABORATORY Specimen Anatomical Collection Method / Collection Time Recei jah Time (Source) Location / Volume Laterality Blood BLOOD SPECIMEN / Venipuncture / 08/04/2022 3:49 2021 3:50 Unknown Unknown PM CDT PM CDT Narrative [facility] LABORATORY-CENTRAL LABORAT ORY - 08/10/2022 2:32 PM CDT Method: FELIPE screen performed by (IFA) on HEP-2 substrate, IgG Michelle LINARES CHEMISTRY Performing Organization Address City/State/ZIP Code Phon e Number [facility] [id number] [place] [address] LABORATORY-CENTRAL 2000 LABORATORY (ABNORMAL) CBC WITH AUTO DIFFERENTIAL (08/04/2022 3:49 PM CDT) [facility] Method Time Signature WHITE BLOOD 8.3 4.5 - 08/04/2022 [facility] COUNT 11.0 3:54 PM CDT [facility]/ CLINIC mm RED BLOOD COUNT 4.79 4.00 - 08/04/2022 [facility] 5.20 3:54 PM CDT [facility]/cu mm CLINIC HEMOGLOBIN 10.7 (L) 12.0 - 08/04/2022 [facility] 16.0 g/dL 3:54 PM CDT [facility] HEMATOCRIT 36.0 33.0 - 08/04/2022 [facility] 51.0 % 3:54 PM CDT [facility] MCV 75 (L) 80 - 100 08/04/2022 [facility] fL 3:54 PM CDT [facility] MCH 22.3 (L) 26.0 - 08/04/2022 [facility] 34.0 pg 3:54 PM CDT [facility] MCHC 29.7 (L) 32.0 - 08/04/2022 [facility] 36.0 g/dL 3:54 PM CDT [facility] RDW 19.8 (H) 11.5 - 08/04/2022 [facility] 15.5 % 3:54 PM CDT [facility] PLATELET COUNT 363 140 - 440 08/04/2022 [facility] thou/cu 3:54 PM CDT [facility] CLINIC MPV 9.2 6.5 - 08/04/2022 [facility] 11.0 fL 3:54 PM CDT [facility] % NEUT 55.3 % 08/04/2022 [facility] 3:54 PM CDT [facility] % LYMPH 31.5 % 08/04/2022 [facility] 3:54 PM CDT [facility] % MONO 9.5 % 08/04/2022 [facility] 3:54 PM CDT [facility] % EOS 3.5 % 08/04/2022 [facility] 3:54 PM CDT [facility] % BASO 0.2 % 08/04/2022 [facility] 3:54 PM CDT [facility] ABSOLUTE 4.6 1.7 - 7.0 08/04/2022 [facility] NEUTROPHILS thou/cu 3:54 PM CDT [facility] CLINIC ABSOLUTE 2.6 0.9 - 2.9 08/04/2022 [facility] LYMPHOCYTES thou/cu 3:54 PM CDT [facility] ABSOLUTE 0.8 <0.9 08/04/2022 [facility] MONOCYTES thou/cu 3:54 PM CDT [facility] ABSOLUTE 0.3 <0.5 08/04/2022 [facility] EOSINOPHILS thou/cu 3:54 PM CDT [facility] ABSOLUTE 0.0 <0.3 08/04/2022 [facility] BASOPHILS thou/cu 3:54 PM CDT [facility] Specimen Anatomical Collection Method / Collection Time Recei jah Time (Source) Location / Volume Laterality Blood BLOOD SPECIMEN / Venipuncture / 08/04/2022 3:49 2021 3:50 Unknown Unknown PM CDT PM CDT Michelle LINARES HEMATOLOGY Performing Organization Address City/State/ZIP Code Phon e Number [facility] [address] [place], [place] [id number] ANTI-STRICKLAND (08/04/2022 3:49 PM CDT) P athologist Signature Sm Antibody <3.3 <=19.9 CU 08/09/2022 [facility] 12:23 PM CDT LABORATORY-CENT RAL LABORATORY Specimen Anatomical Collection Method / Collection Time Recei jah Time (Source) Location / Volume Laterality Blood BLOOD SPECIMEN / Venipuncture / 08/04/2022 3:49 2021 3:50 Unknown Unknown PM CDT PM CDT Narrative [facility] 08/09/2022 12:23 PM CDT Reference Range: ? < 20 CU Negative; ? >=20 CU Positive; ?? These results were obtained with the [employer] Flash Sm chemiluminescent immunoassay. Values obtained with different manufacturers' methods may not be used interchangeably. Michelle LINARES SEND OUTS Performing Organization Address City/State/ZIP Code Phon e Number [facility] [address] [place] [address] LABORATORY-CENTRAL 2000 LABORATORY CARDIOLIPIN ANTIBODY (08/04/2022 3:49 PM CDT) athologist Signature Cardiolipin IgA 4.7 <=20.0 CU 08/15/2022 [facility] 10:28 AM CDT LABORATORY-[place] TRAL LABORATORY Cardiolipin IgG <2.6 <=20.0 CU 08/15/2022 [facility] 10:28 AM CDT [facility] Cardiolipin IgM 5.6 <=20.0 CU 08/15/2022 [facility] 10:28 AM CDT [facility]AT[facility] Specimen Anatomical Collection Method / Collection Time Recei jah Time (Source) Location / Volume Laterality Blood BLOOD SPECIMEN / Venipuncture / 08/04/2022 3:49 2021 3:50 Unknown Unknown PM CDT PM CDT Narrative [facility] 08/15/2022 10:28 AM CDT Interpretation: Moderate to high titers (40 GPL or MPL b y JERILYN assays) of aCL correlate better with aPL-related clinical events than do lower titers; IgG is more strongly associated with clinical events than is IgM (NE 378(21):2010). Guitar Teacher's studies have shown the fo llowing correlation between anti- cardiolipin antibody levels quantified by the BioFlash Chemiluminescent method compared to JERILYN (Antibodies 2016,5,14): For IgG aCL: 95 CU corresponds to 40 GPL For IgM aCL: 31 CU corresponds to 40 MPL Michelle LINARES SEND OUTS Performing Organization Address [facility] Phon e Number [facility] [address] [place] [address] LABORATORY-CENTRAL 2000 LABORATORY C3 COMPLEMENT (08/04/2022 3:49 PM CDT) athologist Signature C3 COMPLEMENT 130.27 81.10 - 08/10/2022 [facility] 157.00 2:21 PM CDT LABORATORY-[place]HA mg/dL TRAL LABORATORY Specimen Anatomical Collection Method / Collection Time Recei jah Time (Source) Location / Volume Laterality Blood BLOOD SPECIMEN / Venipuncture / 08/04/2022 3:49 2021 3:50 Unknown Unknown PM CDT PM CDT Michelle LINARES CHEMISTRY Performing Organization Address [facility] Phon e Number [facility]PH[facility] [address] [place] [address] LABORATORY-CENTRAL 2000 LABORATORY C4 COMPLEMENT (08/04/2022 3:49 PM CDT) athologist Signature C4 Complement 32.46 12.90 - 08/10/2022 [facility] 39.20 2:21 PM CDT LABORATORY-CENT mg/dL RAL LABORATORY Specimen Anatomical Collection Method / Collection Time Recei jah Time (Source) Location / Volume Laterality Blood BLOOD SPECIMEN / Venipuncture / 08/04/2022 3:49 2021 3:50 Unknown Unknown PM CDT PM CDT Michelle LINARES CHEMISTRY Performing Organization Address [facility] Phon e Number EQ[facility]AUPHIN [facility] [address] [place] [address] LABORATORY-CENTRAL 2000 LABORATORY DNA DOUBLE-STRANDED (DSDNA) ANTIBODIES BY CRITHIDIA LUCILIAE IFA (08/04/2022 3:49 PM CDT) [facility] Signature ANTI-CREEK Negative Negative 08/10/2022 [facility] DNA 2:28 PM CDT LABORATORY-[place] TRAL LABORATORY Specimen Anatomical Collection Method / Collection Time Recei jah Time (Source) Location / Volume Laterality Blood BLOOD SPECIMEN / Venipuncture / 08/04/2022 3:49 2021 3:50 Unknown Unknown PM CDT PM CDT Narrative [facility] LAB[facility]ATORY-[facility]ENTRAL [facility]ORAT [facility] - 08/10/2022 2:28 PM CDT Method: DNA Double-Stranded (dsDNA) Anti bodies by Sarah mendosa IFA, IgG, Serum Michelle LINARES SEND OUTS Performing Organization Address City/[facility]/ZIP [facility] Phon e Number [facility] [address] [place] [address] LABORATORY-CENTRAL 2000 LABORATORY (ABNORMAL) C-REACTIVE PROTEIN (08/04/2022 3:49 PM CDT) Analysis Performed At Patho logist Time Signature C-REACTIVE 0.84 (H) <0.50 08/07/2022 [facility] PROTEIN mg/dL 8:14 PM CDT LABORATORY-[place] TRAL LABORATORY Specimen Anatomical Collection Method / Collection Time Recei jah Time (Source) Location / Volume Laterality Blood BLOOD SPECIMEN / Venipuncture / 08/04/2022 3:49 2021 3:50 Unknown Unknown PM CDT PM CDT Michelle LINARES CHEMISTRY Performing Organization Address City/[facility] Code Phon e Number [facility] [address] [place] [address] LABORATORY-CENTRAL 2000 LABORATORY HEMOGLOBIN A1C MONITORING (POCT) (08/04/2022 3:49 PM CDT) P athologist Signature HEMOGLOBIN A1C 5.8 <=6.4 % 08/04/2022 [facility] MONITORING 4:05 PM CDT [facility] ([facility] Specimen Anatomical Collection Method / Collection Time Recei jah Time (Source) Location / Volume Laterality Blood BLOOD SPECIMEN / Venipuncture / 08/04/2022 3:49 2021 3:50 Unknown Unknown PM CDT PM CDT Narrative [facility] - 2021 4:05 PM CDT ? (<=6.9%) ? Indicates good control ? (7.0% to 7.9%) ? Indicates fa ir control ? (>=8.0%) ? Indicates poor control ?? NOTE: ??These thresholds are guideli niecy and ?individual targets may va ry. Falsely low levels may be seen with: Recent Transfusion, Recent Significant B lood Loss, Hemolytic Diseases, or Falsely elevated levels may be seen with : Untreated Anemias, Splenectomy ? Michelle LINARES CHEMISTRY Performing Organization Address City/State/ZIP Code Phon e Number [facility] [address] [place] [address] (ABNORMAL) FERRITIN (08/04/2022 3:49 PM CDT) athologist Signature FERRITIN 9.4 (L) 15.0 - 08/07/2022 [facility] 205.0 ng/mL 8:27 PM CDT LABORATORY-[facility] LABORATORY Specimen Anatomical Collection Method / Collection Time Recei jah Time (Source) Location / Volume Laterality Blood BLOOD SPECIMEN / Venipuncture / 08/04/2022 3:49 2021 3:50 Unknown Unknown PM CDT PM CDT Michelle LINARES CHEMISTRY Performing Organization Address City/[facility]/ZIP Code Phon e Number [facility] [address] [place] [address] LABORATORY-CENTRAL 2000 LABORATORY from Last 3 Months Insurance Payer Benefit Plan / Subscriber ID Effective Dates Phone Addre ss Type Group MEDICARE PART B MEDICARE PART [id number] 2019-Presen ATTN: CLAIMS - HB USE ONLY B HB ONLY t [address] [place] [address] MEDICARE PPS HC MEDICARE [id number] 2019-Presen PO JADA X 2019 [address] [place] [address] MEDICARE - PB MEDICARE PB [id number] 2019-Presen ATTN : CLAIMS USE ONLY ONLY t [address] [place] [address] UCARE [place] UCARE CONNECT [id number] 2021-Presen [address] [place] [address] Ann Marie Zheng Personal/Family Self 1970 [address] [place] [id number] Ann Marie Zheng 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
== END 2022-09-18 02:58 | disposition home or self-care (01) ==
LOC: ED 02:58
PROVIDERS: Emergency Provider Family Medicine; PCP Physician Assistant Medical
DX: S51.812A Laceration without foreign body of left forearm, initial encounter (principal); X78.1XXA Intentional self-harm by knife, initial encounter; Y93.89 Activity, other specified; Y92.003 Bedroom of unspecified non-institutional (private) residence as the place of occurrence of the external cause; Y99.8 Other external cause status
CPT/HCPCS: 99282

== ENCOUNTER 2023-10-30 10:35 | Emergency (ER) | payer MEDICARE, MEDICAID, SELFPAY ==
[2023-10-30] VITALS (22 sets, daily range): BP systolic 119–145; BP diastolic 79–94; PULSE 74–89; RESP 16; TEMP 36.8; O2SAT 93–97; BMI 38.8
--- NOTE | 2023-10-30 13:57 | ED_ITS ---
HPI - General Adult General Chief complaint: Chest Pain Stated complaint: swelling in legs,chest pain,shortness of breath Time Seen by Provider: 10/30/23 13:45 History of Present Illness HPI narrative: This is a pleasant 53-year-old female with a complex past medical history including previous SVT, obesity, hypertension, PCOS, previous tobacco use (quit 2017), sleep apnea, type 2 diabetes (recently stopped Ozempic), seasonal affective disorder, anxiety, POTS, irritable bowel syndrome, and autoimmune connective tissue disease, who presents to the ER today after being seen on a virtual visit from the urgent care. She does not have any known history of CHF, coronary disease, PE. She has had symptoms dating back about 2 weeks, since before . Symptoms initially began with mild dyspnea on exertion. She noticed that she was short of breath with walking, in particular going up the steps in her home. She would have to stop and take a break if she was carrying something. This is been getting a little bit worse over the past week or so. Also for the past week or so she said some mild and intermittent chest discomfort. There is no clear pattern to these. Sometimes they are triggered by exertion but sometimes they are not. She says sometimes they get better when she coughs. No clear pattern of exertional discomfort or improvement with rest. No other symptoms with these. Since yesterday her symptom have changed. She is now having more of a sharp achy pain like something is pulling just under her left breast. She feels like it is deep inside. No other new symptoms. No palpitations. No fainting. No nausea. No ripping or tearing pain. No pain down her arm or through to her back. No abdominal pain. She does occasionally get abdominal pains due to food sensitization IBS but that is not changed from her baseline. She also has a new edema affecting her ankles and hands that has also been present for the past week or maybe 10 days. Related Data Home Medications Medication Instructions Recorded Confirmed acetaminophen 500 mg tablet 500 mg PO Q6H 08/25/22 10/30/23 epinephrine 0.3 mg/0.3 mL 0.3 mg IM .each time PRN 08/25/22 01/02/23 injection, auto-injector lisinopril 2.5 mg tablet 2.5 mg PO DAILY 08/25/22 10/30/23 omeprazole 40 mg capsule,delayed 40 mg PO DAILY 08/25/22 10/30/23 release risankizumab-rzaa 150 mg/mL 150 mg subcut Q12W 08/25/22 10/30/23 subcutaneous pen injector (Shahidizi) gabapentin 600 mg tablet 900 mg PO QHS 12/25/22 10/30/23 ibuprofen 800 mg tablet 800 mg PO Q8H PRN 12/25/22 10/30/23 loratadine 10 mg tablet 10 mg PO Q24H 01/02/23 10/30/23 triamcinolone acetonide 0.1 % applic topical 10/30/23 topical cream Previous Rx's Medication Instructions Recorded furosemide 40 mg tablet (Lasix) 40 mg PO DAILY #7 tabs 10/30/23 Allergies Allergy/AdvReac Type Severity Reaction Status Date / Time [id number] Reductase Allergy Severe suicidal Verified 10/30/23 10:54 Inhibitor thoughts trazodone Allergy Severe suicidal Verified 10/30/23 10:54 ideation walnut Allergy Unknown Verified 10/30/23 10:54 paroxetine [From Paxil] AdvReac Intermediate Verified 10/30/23 10:54 [facility] Medical History , RN) Adjustment disorder with depressed mood Agoraphobia with panic attacks Androgenic alopecia BPPV (benign paroxysmal positional vertigo) Chronic GERD Controlled type 2 diabetes mellitus without complication, with long-term current use of insulin Depression Dysphagia, unspecified Generalized anxiety disorder HTN (hypertension) IBS (irritable bowel syndrome) Impaired fasting glucose Iron deficiency anemia Irritable bowel syndrome with both constipation and diarrhea Migraine with status migrainosus, not intractable Morbid obesity Muscular deconditioning Nightmare Numbness and tingling in left arm Orthostatic hypotension SIRIA (obstructive sleep apnea) PCOS (polycystic ovarian syndrome) Plantar fasciitis PMDD (premenstrual dysphoric disorder) POTS (postural orthostatic tachycardia syndrome) Psoriasis, unspecified PTSD (post-traumatic stress disorder) Pulmonary nodule RLS (restless legs syndrome) Seasonal affective disorder Suicidal ideations Tachycardia, unspecified Tobacco use disorder Vitamin D deficiency Surgical History , RN) H/O total hysterectomy H/O: hysterectomy History of salpingo-oophorectomy S/P breast lumpectomy Status post open reduction and internal fixation (ORIF) of fracture Social History Smoking Status: Former smoker Do you use any of these nicotine containing products: None Second hand tobacco smoke exposure: No How often do you have a drink containing alcohol: never How often do you have six or more drinks on one occasion: Never AUDIT-C Alcohol total score: 0 Non-prescribed substance use: denies use Exam Narrative: Exam Narrative: Constitutional: Appears well-developed . Over nourished. Alert. Conversant. Non toxic. Very polite. Conversant. HENT: Head: Atraumatic. Nose: Nose normal. Mouth/Throat: Oral mucosa is clear and moist. no trismus. Pharynx normal. Tonsils symmetric. No tonsillar enlargement, erythema, or exudate. Eyes: Conjunctivae normal. EOM normal. Pupils equal, round, and reactive to light. No scleral icterus. Neck: Normal range of motion. Neck supple. No tracheal deviation present. No JVD Cardiovascular: Normal rate, regular rhythm. No gallop. No friction rub. No murmur heard. Symmetric radial and PT artery pulses Pulmonary/Chest: Effort normal. No stridor. No respiratory distress. No wheezes. No rales. No rhonchi . No tenderness. Abdominal: Soft. Bowel sounds normal. No distension. No mass. No tenderness. No rebound. No guarding. Musculoskeletal: RUE: Normal range of motion. No tenderness. No deformity LUE: Normal range of motion. No tenderness. No deformity RLE: Normal range of motion. 2+ nonpitting edema. No tenderness. No deformity LLE: Normal range of motion. 2+ nonpitting edema. No tenderness. No deformity Lymph: No cervical adenopathy. Neurological: Alert and oriented to person, place, and time. Normal strength. CN II-VII intact. No sensory deficit. GCS eye subscore is 4. GCS verbal subscore is 5. GCS motor subscore is 6. Normal coordination Skin: Skin is warm and dry. No rash noted. No pallor. Normal capillary refill. Psychiatric: Normal mood. Normal affect. Polite, vibrant. Interactive. Const: Vital Signs, click to edit/add: Vital Signs - 24 hr 10/30/23 10:46 10/30/23 13:44 10/30/23 13:45 Temperature 98.2 F Pulse Rate 83 84 Pulse Rate [Pulse Oximeter] 89 Respiratory Rate 16 Blood Pressure Blood Pressure [Ri ght Upper Arm] 119/79 Pulse Oximetry 95 94 94 Oxygen Delivery Me thod Room Air 10/30/23 14:00 10/30/23 14:15 10/30/23 14:30 Temperature Pulse Rate 78 80 77 Pulse Rate [Pulse Oximeter] Respiratory Rate Blood Pressure Blood Pressure [Ri ght Upper Arm] Pulse Oximetry 97 94 95 Oxygen Delivery Me thod 10/30/23 14:35 10/30/23 14:45 10/30/23 15:00 Temperature Pulse Rate 85 84 79 Pulse Rate [Pulse Oximeter] Respiratory Rate Blood Pressure 125/80 Blood Pressure [Ri ght Upper Arm] Pulse Oximetry 95 94 95 Oxygen Delivery Me thod 10/30/23 15:15 10/30/23 15:30 10/30/23 15:45 Temperature Pulse Rate 77 77 86 Pulse Rate [Pulse Oximeter] Respiratory Rate Blood Pressure Blood Pressure [Ri ght Upper Arm] Pulse Oximetry 94 95 94 Oxygen Delivery Me thod 10/30/23 15:54 10/30/23 16:00 10/30/23 16:15 Temperature Pulse Rate 80 79 79 Pulse Rate [Pulse Oximeter] Respiratory Rate Blood Pressure 143/90 H Blood Pressure [Ri ght Upper Arm] Pulse Oximetry 97 96 95 Oxygen Delivery Me thod 10/30/23 16:30 10/30/23 16:45 10/30/23 17:00 Temperature Pulse Rate 75 74 74 Pulse Rate [Pulse Oximeter] Respiratory Rate Blood Pressure Blood Pressure [Ri ght Upper Arm] Pulse Oximetry 96 93 97 Oxygen Delivery Me thod 10/30/23 17:15 10/30/23 17:30 10/30/23 17:45 Temperature Pulse Rate 77 76 74 Pulse Rate [Pulse Oximeter] Respiratory Rate Blood Pressure Blood Pressure [Ri ght Upper Arm] Pulse Oximetry 97 94 96 Oxygen Delivery Me thod 10/30/23 17:50 Temperature Pulse Rate 77 Pulse Rate [Pulse Oximeter] Respiratory Rate Blood Pressure 145/94 H Blood Pressure [Ri ght Upper Arm] Pulse Oximetry 96 Oxygen Delivery Me thod Course Vital Signs Vital signs: Initial Vital Signs Temperature 98.2 F 10/30/23 10:46 Temperature Source Temporal Artery Scan 10/30/23 10:46 Pulse Rate 89 10/30/23 10:46 Respiratory Rate 16 10/30/23 10:46 Blood Pressure 119/79 10/30/23 10:46 Blood Pressure Mean 92 10/30/23 10:46 Blood Pressure Position Sitting 10/30/23 10:46 Pulse Oximetry 95 10/30/23 10:46 Oxygen Delivery Method Room Air 10/30/23 10:46 Vital Signs Temperature 98.2 F 10/30/23 10:46 Pulse Rate 89 10/30/23 10:46 Respiratory Rate 16 10/30/23 10:46 Blood Pressure 119/79 10/30/23 10:46 Pulse Oximetry 95 10/30/23 10:46 Oxygen Delivery Method Room Air 10/30/23 10:46 Temperature 98.2 F 10/30/23 10:46 Pulse Rate 77 10/30/23 17:50 Respiratory Rate 16 10/30/23 10:46 Blood Pressure 145/94 H 10/30/23 17:50 Pulse Oximetry 96 10/30/23 17:50 Oxygen Delivery Method Room Air 10/30/23 10:46 Medications Administered Medications: Discontinued Medications Generic Name Dose Route Start Last Admin Trade Name Freq PRN Reason Stop Dose Admin Aspirin 162 mg 10/30/23 14:10 10/30/23 14:32 Aspirin 81 Mg Tab.Chew PO 10/30/23 14:11 162 mg ONCE ONE Administration Medical Decision Making [facility] Narrative Medical decision making narrative: This patient presents to the ER today for evaluation of chest pain, bilateral lower extremity peripheral edema, and mild dyspnea on exertion. Differential was broad. No evidence of palpitations, syncope or other cardiac dysrhythmia. We considered possible ACS, however workup with EKG and troponin is negative. HEART score is 3. Given time since onset of symptoms, we did obtain 3 hour delta troponins here in the ER and they are normal. EKG shows no evidence for pericarditis. Clinical presentation not suggestive of myocarditis. Chest x-ray shows no evidence for pneumonia, pneumothorax, pulmonary edema, pleural effusion, rib fracture, cardiomegaly. Consider possible CHF with her dyspnea on exertion and peripheral edema. However chest x-ray does not show pulmonary edema, pleural effusions and BNP level is quite low. Mediastinum is normal on the x-ray. The patient has no ripping or tearing pain through to the back and has symmetric pulses on exam, no other acute neuro findings so I doubt aortic dissection. Risk of radiation and contrast exposure would outweigh the benefit of CT angiogram. We considered PE for this patient. Overall low risk but not 0 risk. Screening D-dimer is obtained and is less than 0.5. No wheezing or bronchospasm to suggest COPD/asthma. No signs of chest wall cellulitis, shingles, injury. Will try treating her peripheral edema with loop diuretic for 7 days. To follow up with primary care for re-evaluation and repeat potassium measurement. With reasonable clinical confidence, I think the patient is safe for outpatient follow up. Discussed return precautions. Questions answered. Patient voices comfort with the plan. Lab Data Labs: Lab Results 10/30/23 10/30/23 Range/Units 14:00 17:06 WBC 7.23 (4.50-11.00) K/uL RBC 4.60 (4.00-5.20) m/uL Hgb 12.0 (12.0-16.0) gm/dL Hct 39.8 (33.0-51.0) % MCV 87 (80-100) fL MCH 26 (26-34) pg MCHC 30 L (32-36) gm/dL RDW Coeff of Luis 15.7 H (11.5-15.5) % Plt Count 257 (140-440) K/uL Neut % (Auto) 58.7 (42.0-72.0) % Lymph % (Auto) 29.5 (20-44) % [place] % (Auto) 9.7 (0.0-11.0) % Eos % (Auto) 1.9 (0.0-7.0) % Baso % (Auto) 0.1 (0.0-3.0) % Neut # (Auto) 4.24 (1.7-7.0) K/uL Lymph # (Auto) 2.13 (0.90-2.90) K/uL [place] # (Auto) 0.70 (0.00-0.90) K/UL Eos # (Auto) 0.14 (0.00-0.50) K/uL Baso # (Auto) 0.01 (0.00-0.30) K/uL Abs Immat Gran (auto) 0.01 (0.00-0.30) K/uL Imm/Tot Granulo (auto) 0.1 % ESR 26 H (2-20) mm/hr D-Dimer Quant (PE/DVT) 0.44 (0.00-0.50) ug/ml Sodium 141 (135-149) mmol/L Potassium 3.7 (3.6-5.1) mmol/L Chloride 106 (96-114) mmol/L Carbon Dioxide 30 (20-32) mmol/L Anion Gap 5 L (7-15) mEq/L BUN 18 (7-30) mg/dL Creatinine 0.7 (0.5-1.5) mg/dL Estimated Creat Clear 92.68 Estimated GFR 103 ml/min Glucose 173 H (60-115) mg/dL Calcium 8.9 (8.4-10.6) mg/dL Total Bilirubin 0.1 (0.1-1.5) mg/dL AST 26 (12-35) U/L ALT 27 (4-35) U/L Alkaline Phosphatase 99 (40-150) U/L NT-Pro-B Natriuret Pep 40 pg/mL Total Protein 7.2 (6.0-8.3) g/dL Albumin 4.0 (3.3-5.0) g/dL POC Troponin I 0.00 L 0.00 L (0.01-0.04) ng/ml Imaging Data Chest x-ray: Attestation: I have reviewed the pertinent imaging results. Radiologist's impression: IMPRESSION: No acute findings and no significant changes from the prior exam. ECG Data Attestation: I personally reviewed and interpreted this ECG as follows: Interpretation: Normal sinus rhythm rate 79 MI 154 QRS axis normal axis ST segment/T wave: No ST segment elevation or depression QTc: 458 Discharge Plan Discharge Clinical Impression: Acute dyspnea, Edema, peripheral Patient Disposition: Home, Self-Care Condition: Stable Instructions: Dyspnea (ED), Edema (ED) Additional Instructions: As we discussed, please follow up with your doctor within 1 week. If you have more trouble breathing, more chest pain, fever, weakness, or any concerns please return to the ER right away. Prescriptions: New furosemide [Lasix] 40 mg tablet 40 mg PO DAILY Qty: 7 2RF No Action acetaminophen 500 mg tablet 500 mg PO Q6H lisinopril 2.5 mg tablet 2.5 mg PO DAILY omeprazole 40 mg capsule,delayed release(DR/EC) 40 mg PO DAILY Skyrizi 150 mg/mL pen injector 150 mg subcut Q12W epinephrine 0.3 mg/0.3 mL auto-injector 0.3 mg IM .each time PRN ibuprofen 800 mg tablet 800 mg PO Q8H PRN gabapentin 600 mg tablet 900 mg PO QHS loratadine 10 mg tablet 10 mg PO Q24H triamcinolone acetonide 0.1 % cream topical Follow Up/Referrals: Provider,Not a Local [Referring] - Stand Alone Forms: [facility] Inst[facility]
--- NOTE | 2023-10-30 14:10 | CRLHL7_ITS ---
For Patients: As a result of the Century Cures Act, medical imaging exams and procedure reports are released immediately into your electronic medical record. You may view this report before your referring provider. If you have questions, please contact your health care provider. INDICATION: Chest pain. Dyspnea on exertion. TECHNIQUE: Chest 2 views. COMPARISON: December 25, 2022. FINDINGS: Cardiovascular and mediastinum: Heart size and vasculature are normal in caliber and appearance. Lungs and pleural spaces: Lungs are clear. No sign of infiltrate or mass. No sign of pleural effusion. No pneumothorax. Bones and soft tissues: No significant findings. IMPRESSION: No acute findings and no significant changes from the prior exam. Dictated by Jassi Appiah MD @ 10/30/2023 3:38:04 PM (Electronically Signed)
[2023-10-30 14:22] LABS: Basophils Absolute Auto 0.01 K/uL (0.00-0.30); Basophils Percent Auto 0.1 % (0.0-3.0); Eosinophils Absolute Auto 0.14 K/uL (0.00-0.50); Eosinophils Percent Auto 1.9 % (0.0-7.0); Hematocrit 39.8 % (33.0-51.0); Immature Granulocytes Abs Auto 0.01 K/uL (0.00-0.30); Immature Granulocytes Pct Auto 0.1 %; Lymphocytes Absolute Auto 2.13 K/uL (0.90-2.90); Lymphocytes Percent Auto 29.5 % (20-44); Mean Corpuscular HGB Conc 30 gm/dL (32-36); Mean Corpuscular Hemoglobin 26 pg (26-34); Mean Corpuscular Volume 87 fL (80-100); Monocytes Percent Auto 9.7 % (0.0-11.0); Neutrophils Absolute Auto 4.24 K/uL (1.7-7.0); Neutrophils Percent Auto 58.7 % (42.0-72.0); Platelet Count* 257 K/uL (140-440); RDW Coefficient of Variation % 15.7 % (11.5-15.5); Slide Review Reflex No; White Blood Count* 7.23 K/uL (4.50-11.00)
[2023-10-30 14:30] LABS: Chloride* 106 mmol/L (96-114)
[2023-10-30 14:31] LABS: Potassium* 3.7 mmol/L (3.6-5.1); Sodium* 141 mmol/L (135-149)
[2023-10-30] MEDS: ASPIRIN 81 MG TAB.CHEW 162 MG PO (14:32)
[2023-10-30 14:33] LABS: Anion Gap 5 mEq/L (7-15); Aspartate Amino Transferase* 26 U/L (12-35); Bilirubin Total* 0.1 mg/dL (0.1-1.5); Carbon Dioxide* 30 mmol/L (20-32); Creatinine* 0.7 mg/dL (0.5-1.5); Est. Creatinine Clearance* 92.68; Estimated Glomerular Filt Rate 103 ml/min
[2023-10-30 14:34] LABS: Alanine Aminotransferase* 27 U/L (4-35); Alkaline Phosphatase* 99 U/L (40-150); Blood Urea Nitrogen* 18 mg/dL (7-30); Calcium* 8.9 mg/dL (8.4-10.6); Glucose* 173 mg/dL (60-115); Total Protein* 7.2 g/dL (6.0-8.3)
[2023-10-30 14:44] LABS: NT Pro B Type NatriureticPept* 40 pg/mL
[2023-10-30 15:05] LABS: Erythrocyte SedimentationRate* 26 mm/hr (2-20)
[2023-10-30 15:08] LABS: D Dimer Quantitative* 0.44 ug/ml (0.00-0.50)
== END 2023-10-30 18:07 | disposition home or self-care (01) ==
PROVIDERS: Emergency Provider Emergency Medicine; PCP Physician Assistant Medical
DX: R06.00 Dyspnea, unspecified (principal); R60.0 Localized edema
CPT/HCPCS: 36415; 71046; 80053; 83880; 84484; 85025; 85379; 85651; 93005; 99284; A9270

== ENCOUNTER 2024-01-03 17:27 | Emergency (ER) | payer MEDICAID, SELFPAY ==
[2024-01-03 17:43] VITALS: BP 135/97; PULSE 96; RESP 20; TEMP 36.4; O2SAT 97; BMI 39.5
--- NOTE | 2024-01-03 18:27 | ED_ITS ---
HPI - Chest Pain General Chief Complaint: Chest Pain Stated Complaint: chest pain, heavy L arm Time Seen by Provider: 01/03/24 18:04 History of Present Illness HPI narrative: This 53-year-old female comes in reporting some chest discomfort or chest pressure that began upon awakening this morning. She thought that she might have slept wrong. She states that the pain went away and then came back later. In both instances she was not doing anything exertional to bring on the pain. She denies having any exertional symptoms other than some shortness of breath when going up and down stairs. This is not new for her. She denies having any nausea, vomiting, or diaphoresis. She does report some lightheadedness today and some shortness of breath when ambulating stairs. She states that the pain is not reproducible with palpating in her chest, taking deep breaths, or with certain movements. She does not report any recent injury event or strenuous activity. She does have some cardiac risk factors including history of smoking which she quit 6 years ago. She also has diabetes and family history of heart disease. She had an echocardiogram about a week ago which showed an enlarged heart but no other significant findings. Related Data Home Medications Medication Instructions Recorded Confirmed acetaminophen 500 mg tablet 500 mg PO Q6H 08/25/22 01/03/24 epinephrine 0.3 mg/0.3 mL 0.3 mg IM .each time PRN 08/25/22 01/03/24 injection, auto-injector lisinopril 2.5 mg tablet 2.5 mg PO DAILY 08/25/22 01/03/24 omeprazole 40 mg capsule,delayed 40 mg PO DAILY 08/25/22 01/03/24 release risankizumab-rzaa 150 mg/mL 150 mg subcut Q12W 08/25/22 01/03/24 subcutaneous pen injector (Juju) gabapentin 600 mg tablet 900 mg PO QHS 12/25/22 01/03/24 ibuprofen 800 mg tablet 800 mg PO Q8H PRN 12/25/22 01/03/24 loratadine 10 mg tablet 10 mg PO Q24H 01/02/23 01/03/24 triamcinolone acetonide 0.1 % applic topical 10/30/23 topical cream cholecalciferol (vitamin D3) 50 50 mcg PO DAILY 01/03/24 01/03/24 mcg (2,000 unit) tablet Previous Rx's Medication Instructions Recorded furosemide 40 mg tablet (Lasix) 40 mg PO DAILY #7 tabs 10/30/23 Allergies Allergy/AdvReac Type Severity Reaction Status Date / Time Rlzodhy-ENP-HoI Reductase Allergy Severe suicidal Verified 01/03/24 17:36 Inhibitor thoughts trazodone Allergy Severe suicidal Verified 01/03/24 17:36 ideation walnut Allergy Unknown Verified 01/03/24 17:36 paroxetine [From Paxil] AdvReac Intermediate Verified 01/03/24 17:36 Review of Systems Status of ROS Reports: 10 or more systems reviewed and unremarkable except as noted in History and below Narrative Constitutional: No fevers, no weight gain or loss. Eyes: No discharge. No vision changes. HENT: No congestion, no sore throat, no ear pain. Cardiovascular: No palpitations. Respiratory: No wheezes, no cough. Gastrointestinal: No abdominal pain, no vomiting, no diarrhea. Genitourinary: No dysuria, no hematuria. Musculoskeletal: Normal range of motion. Skin: No rashes, no pruritis. Neurological: No dizziness, weakness, sensory change, speech change. Endo/Heme/Allergies: No bruising or bleeding. No polydipsia. Pysch: no suicidality, no anxiety, no insomnia. All other systems reviewed and are negative. [facility] Medical History , RN) Adjustment disorder with depressed mood Agoraphobia with panic attacks Androgenic alopecia BPPV (benign paroxysmal positional vertigo) Chronic GERD Controlled type 2 diabetes mellitus without complication, with long-term current use of insulin Depression Dysphagia, unspecified Generalized anxiety disorder HTN (hypertension) IBS (irritable bowel syndrome) Impaired fasting glucose Iron deficiency anemia Irritable bowel syndrome with both constipation and diarrhea Migraine with status migrainosus, not intractable Morbid obesity Muscular deconditioning Nightmare Numbness and tingling in left arm Orthostatic hypotension SIRIA (obstructive sleep apnea) PCOS (polycystic ovarian syndrome) Plantar fasciitis PMDD (premenstrual dysphoric disorder) POTS (postural orthostatic tachycardia syndrome) Psoriasis, unspecified PTSD (post-traumatic stress disorder) Pulmonary nodule RLS (restless legs syndrome) Seasonal affective disorder Suicidal ideations Tachycardia, unspecified Tobacco use disorder Vitamin D deficiency Surgical History , RN) H/O total hysterectomy H/O: hysterectomy History of salpingo-oophorectomy S/P breast lumpectomy Status post open reduction and internal fixation (ORIF) of fracture Social History Smoking Status: Former smoker Do you use any of these nicotine containing products: None Second hand tobacco smoke exposure: No How often do you have a drink containing alcohol: never How often do you have six or more drinks on one occasion: Never AUDIT-C Alcohol total score: 0 Non-prescribed substance use: denies use Exam Narrative Exam Narrative: Constitutional: Well-developed, well-nourished, no acute distress. HEENT: Normocephalic, atraumatic. Neck: Normal range of motion. Nontender. Supple. Heart: Regular. No murmurs. Normal rate. Intact distal pulses. Lungs: Clear to auscultation. No chest discomfort. No wheezes, rhonchi, or rales. Abdomen: Normal bowel sounds. Nontender. No rebound tenderness. Genitalia: Deferred. Back: No midline tenderness. Normal range of motion. Extremities: Normal range of motion. No injury. Skin: Intact. No rash. Warm. No erythema or pallor. Neurologic: No altered sensation. No weakness. Alert and oriented. Psychiatric: No suicidality. No anxiety or depression. No insomnia. Nursing notes and vitals signs are reviewed. Const Vital Signs, click to edit/add: Vital Signs - 24 hr 01/03/24 17:43 Temperature 97.5 F L Pulse Rate [Pulse Oximeter] 96 Respiratory Rate 20 Blood Pressure [Right Upper Arm] 135/97 H Pulse Oximetry 97 Oxygen Delivery Method Room Air Course Vital Signs Vital signs: Initial Vital Signs Temperature 97.5 F L 01/03/24 17:43 Temperature Source Temporal Artery Scan 01/03/24 17:43 Pulse Rate 96 01/03/24 17:43 Pulse Rhythm Regular 01/03/24 17:43 Pulse Strength 3+ Normal 01/03/24 17:43 Respiratory Rate 20 01/03/24 17:43 Blood Pressure 135/97 H 01/03/24 17:43 Blood Pressure Mean 109 H 01/03/24 17:43 Blood Pressure Position Sitting 01/03/24 17:43 Pulse Oximetry 97 01/03/24 17:43 Oxygen Delivery Method Room Air 01/03/24 17:43 Vital Signs Temperature 97.5 F L 01/03/24 17:43 Pulse Rate 96 01/03/24 17:43 Respiratory Rate 20 01/03/24 17:43 Blood Pressure 135/97 H 01/03/24 17:43 Pulse Oximetry 97 01/03/24 17:43 Oxygen Delivery Method Room Air 01/03/24 17:43 Temperature 97.5 F L 01/03/24 17:43 Pulse Rate 96 01/03/24 17:43 Respiratory Rate 20 01/03/24 17:43 Blood Pressure 135/97 H 01/03/24 17:43 Pulse Oximetry 97 01/03/24 17:43 Oxygen Delivery Method Room Air 01/03/24 17:43 MDM - Chest Pain MDM Narrative Medical decision making narrative: This patient comes in for evaluation of some chest discomfort that began upon awakening this morning. She arrives with normal vital signs. She does have some cardiac risk factors but does not describe any exercise intolerance that is new. She does have some shortness of breath since having COVID a few months ago but does not report any chest discomfort related to exertion. Today her EKG shows normal sinus rhythm without any ST or T-wave abnormalities. Additionally her lab results are also reassuring with a troponin at 0. She did have an echocardiogram about a week ago. It does seem that this chest pain is not related to heart her lungs or other vital organs. More likely it is a chest wall pain or atypical chest pain. She is okay to be discharged home to continue current plans. I did state signs and symptoms that would indicate a need for return and re-evaluation. Lab Data Labs: Lab Results 01/03/24 01/03/24 Range/Units 18:27 18:40 WBC 6.46 (4.50-11.00) K/uL RBC 4.84 (4.00-5.20) m/uL Hgb 12.5 (12.0-16.0) gm/dL Hct 41.3 (33.0-51.0) % MCV 85 (80-100) fL MCH 26 (26-34) pg MCHC 30 L (32-36) gm/dL RDW Coeff of Luis 15.5 (11.5-15.5) % Plt Count 263 (140-440) K/uL Neut % (Auto) 57.6 (42.0-72.0) % Lymph % (Auto) 31.3 (20-44) % [place] % (Auto) 8.4 (0.0-11.0) % Eos % (Auto) 1.9 (0.0-7.0) % Baso % (Auto) 0.2 (0.0-3.0) % Neut # (Auto) 3.73 (1.7-7.0) K/uL Lymph # (Auto) 2.02 (0.90-2.90) K/uL [place] # (Auto) 0.50 (0.00-0.90) K/UL Eos # (Auto) 0.12 (0.00-0.50) K/uL Baso # (Auto) 0.01 (0.00-0.30) K/uL Abs Immat Gran (auto) 0.04 (0.00-0.30) K/uL Imm/Tot Granulo (auto) 0.6 % Sodium 142 (135-149) mmol/L Potassium 3.9 (3.6-5.1) mmol/L Chloride 105 (96-114) mmol/L Carbon Dioxide 28 (20-32) mmol/L Anion Gap 9 (7-15) mEq/L BUN 14 (7-30) mg/dL Creatinine 0.7 (0.5-1.5) mg/dL Estimated Creat Clear 92.68 Estimated GFR 103 ml/min Glucose 134 H (60-115) mg/dL Calcium 9.6 (8.4-10.6) mg/dL POC Troponin I 0.00 L (0.01-0.04) ng/ml ECG Data Attestation: I personally reviewed and interpreted this ECG as follows: Interpretation: Normal sinus rhythm. Rate is 89 beats per minute. There are no ST or T-wave abnormalities. Discharge Plan Discharge Clinical Impression: Atypical chest pain Patient Disposition: Home, Self-Care Condition: Stable Additional Instructions: Continue current plans. Follow up with MD or return if symptoms are persistent or worsening. Prescriptions: No Action acetaminophen 500 mg tablet 500 mg PO Q6H lisinopril 2.5 mg tablet 2.5 mg PO DAILY omeprazole 40 mg capsule,delayed release(DR/EC) 40 mg PO DAILY Skyrizi 150 mg/mL pen injector 150 mg subcut Q12W epinephrine 0.3 mg/0.3 mL auto-injector 0.3 mg IM .each time PRN ibuprofen 800 mg tablet 800 mg PO Q8H PRN gabapentin 600 mg tablet 900 mg PO QHS loratadine 10 mg tablet 10 mg PO Q24H triamcinolone acetonide 0.1 % cream topical furosemide [Lasix] 40 mg tablet 40 mg PO DAILY Qty: 7 2RF cholecalciferol (vitamin D3) 50 mcg (2,000 unit) tablet 50 mcg PO DAILY Follow Up/Referrals: Michelle Mohan PA-C [Primary Care Provider] - Stand Alone Forms: [facility] Info Instructions
[2024-01-03 18:38] VITALS: PULSE 89; O2SAT 94
[2024-01-03 18:45] VITALS: PULSE 86; O2SAT 96
[2024-01-03 18:54] LABS: Basophils Absolute Auto 0.01 K/uL (0.00-0.30); Basophils Percent Auto 0.2 % (0.0-3.0); Eosinophils Absolute Auto 0.12 K/uL (0.00-0.50); Eosinophils Percent Auto 1.9 % (0.0-7.0); Hematocrit 41.3 % (33.0-51.0); Hemoglobin* 12.5 gm/dL (12.0-16.0); Immature Granulocytes Abs Auto 0.04 K/uL (0.00-0.30); Immature Granulocytes Pct Auto 0.6 %; Lymphocytes Absolute Auto 2.02 K/uL (0.90-2.90); Lymphocytes Percent Auto 31.3 % (20-44); Mean Corpuscular HGB Conc 30 gm/dL (32-36); Mean Corpuscular Hemoglobin 26 pg (26-34); Mean Corpuscular Volume 85 fL (80-100); Monocytes Percent Auto 8.4 % (0.0-11.0); Neutrophils Absolute Auto 3.73 K/uL (1.7-7.0); Neutrophils Percent Auto 57.6 % (42.0-72.0); Platelet Count* 263 K/uL (140-440); RDW Coefficient of Variation % 15.5 % (11.5-15.5); Red Blood Count 4.84 m/uL (4.00-5.20); White Blood Count* 6.46 K/uL (4.50-11.00)
[2024-01-03 18:57] LABS: Slide Review Reflex No
[2024-01-03 19:01] VITALS: PULSE 82; O2SAT 96
[2024-01-03 19:05] VITALS: PULSE 84; O2SAT 95
[2024-01-03 19:09] LABS: Chloride* 105 mmol/L (96-114); Sodium* 142 mmol/L (135-149)
[2024-01-03 19:10] LABS: Potassium* 3.9 mmol/L (3.6-5.1)
[2024-01-03 19:12] LABS: Creatinine* 0.7 mg/dL (0.5-1.5); Est. Creatinine Clearance* 92.68; Estimated Glomerular Filt Rate 103 ml/min
[2024-01-03 19:13] LABS: Anion Gap 9 mEq/L (7-15); Blood Urea Nitrogen* 14 mg/dL (7-30); Calcium* 9.6 mg/dL (8.4-10.6); Carbon Dioxide* 28 mmol/L (20-32); Glucose* 134 mg/dL (60-115)
[2024-01-03 19:17] VITALS: PULSE 82; O2SAT 96
== END 2024-01-03 19:41 | disposition home or self-care (01) ==
PROVIDERS: Emergency Provider Emergency Medicine Emergency Medical Services; PCP Physician Assistant Medical
DX: R07.9 Chest pain, unspecified (principal)
CPT/HCPCS: 36415; 80048; 84484; 85025; 93005; 99284

== ENCOUNTER 2024-12-06 17:52 | Emergency (ER) | payer MEDICAID, SELFPAY ==
--- OUTSIDE RECORDS SUMMARY | 2024-12-06 17:53 | XMS_ITS | Clinical Summary ---
Author Organization [facility] Address [address] [place] [address]. [place] [address] Support Name Relationship Address Phone Reyes Zheng Personal Relationship [address] [place] [address] Salas Norm Personal Relationship Unknown Care Team Providers Care Enrichment Director Name Role Phone [facility], [facility] Primary Care Provider Allergies No known active allergies Medications Venlafaxine HCl (EFFEXOR PO) Take by mouth 3 times daily. Active BusPIRone HCl (BUSPAR PO) Take 30 mg by mouth daily Active LORazepam (ATIVAN) 2 MG tablet Take 0.5 tablets by mouth every 6 hours as needed for anxiety. 20 tablet 0 2 Active Additional Information Patient not taking.Reported on 03/02/2018 gabapentin (NEURONTIN) 600 MG tablet Take 600 mg by mouth daily Two tablets once a day 6 Active prazosin (MINIPRESS) 1 MG capsule 3 tabs once a day 6 Active DULoxetine (CYMBALTA) 60 MG EC capsule Take 60 mg by mouth 2 tabs once a day 6 Active omeprazole (PRILOSEC OTC) 20 MG tablet Take 40 mg by mouth 6 Active lisinopril (PRINIVIL/ZESTR IL) 20 MG tablet Take 20 mg by mouth 6 Active VITAMIN D, CHOLECALCIFEROL , PO Take by mouth daily Active ASPIRIN PO Take 81 mg by mouth daily Active Social History Tobacco Use Types Packs/Day Years Used Date Smoking Tobacco: Every Day Cigarettes Smokeless Tobacco: Never Alcohol Use Standard Drinks/Week Comments No 0 (1 standard drink = 0.6 oz pur e alcohol) Adolescent Education Answer Date Record ed Getting School Help Needed Not on file 02/03 Comments Unknown Sex and Gender Information Value Date Recorded Sex Assigned at Not on file Legal Sex Female 3:10 AM WOUND SPECIALIST Gender Identity Not on file Sexual Orientation Not on file Last Filed Vital Signs Vital Sign Reading Time Taken Comments Blood Pressure 170/100 03/17/2024 2:38 PM CDT Pulse 78 03/17/2024 2:38 PM CDT Temperature - - Respiratory Rate 18 11/02/2012 1:28 AM WOUND SPECIALIST Oxygen Saturation 95% 03/02/2018 11: 42 AM CDT Inhaled Oxygen Concentration - - Weight 129.9 kg (286 lb 4.8 oz) 018 11:42 AM CDT Height 175.3 cm (5' 9) 03/02/2018 11:4 2 AM CDT Body Mass Index 42.28 03/02/2018 11:42 AM CDT Plan of Treatment Health Maintenance Due Date Last Done Comments ADVANCE CARE PLANNING 1969 ANNUAL REVIEW OF HM ORDERS 1969 CT COLONOGRAPHY 1969 FIT 1969 FLEX SIG 1969 MAMMO SCREENING 1969 sDNA (Cologuard) 1969 YEARLY PREVENTIVE VISIT 1972 HIV SCREENING 1984 HEPATITIS C SCREENING 1987 HEPATITIS B IMMUNIZATION (1 of 3 - 19+ 3-dose series) 1988 Pneumococcal Vaccine: 50+ Years (1 of 2 - PCV) 1988 PAP 1990 LIPID 2009 GLUCOSE 11/01/2015 11/01/2012 LUNG CANCER SCREENING 2019 11/02/2012 ZOSTER IMMUNIZATION (1 of 2) 2019 COVID-19 Vaccine ( season) 2024 11/11/2021, 03/11/2021, 02/18/2021 INFLUENZA VACCINE (#1) 2024 , 12/07/2015, 12/07/2011, Additional history exists PHQ-2 (once per calendar year) 2024 COLONOSCOPY 03/28/2027 03/28/2017 COLORECTAL CANCER SCREENING 03/28/2027 DTAP/TDAP/TD IMMUNIZATION (2 - Td or Tdap) 08/25/2032 08/25/2022 RSV VACCINE (1 - 1-dose 75+ series) 2044 HPV IMMUNIZATION Aged Out No longer e ligible based on patient's age to complete this topic MENINGITIS IMMUNIZATION Aged Out No l onger eligible based on patient's age to complete this topic RSV MONOCLONAL ANTIBODY Aged Out No l onger eligible based on patient's age to complete this topic Procedures Procedure Name Priority Date/Time Associated Diagnosis Comments CT CHEST ABDOMEN PELVIS W/ CONTRAST 11/02/2012 12:51 AM WOUND SPECIALIST COMPREHENSIVE METABOLIC PANEL STAT 11/01/2012 9:40 PM WOUND SPECIALIST from Last 3 Months or Most Recently Relevant to Health Maintenance Results * CT Chest abdomen pelvis w contrast* (11/02/2012 12:51 AM WOUND SPECIALIST) Anatomical Region Laterality Modality Abdomen, Chest, Pelvis, Hip Comp uted Tomography 11/02/2012 12:5 1 AM WOUND SPECIALIST Impressions 11/02/2012 3:41 PM WOUND SPECIALIST IMPRESSION: 1. No evidence of dissection or other acute abnormality. 2. Right breast mass measures 2.8 cm. Diagnostic mammography and ultrasound recommended. 3. Agree with preliminary report provided by Dr. Guzman. DOMINIK SHEPARD MD Narrative 11/02/2012 3:[address] CHEST, ABDOMEN AND PELVIS WITH CONTRAST 11/02/2012 12:51 AM HISTORY: Chest pain, wide mediastinum on chest x-ray. Evaluate for dissection. No surgeries. COMPARISON: None. TECHNIQUE: Chest, abdomen and pelvis CT was performed following intravenous administration of 99 mL Isovue-370. FINDINGS: Chest: No dissection. Normal heart size. No mediastinal or hilar adenopathy. No airspace consolidation, pleural effusion or pneumothorax. No pulmonary nodules. There is a 2.8 cm mass in the right breast (image 30, series 4). Abdomen: No dissection. Liver, gallbladder, spleen, pancreas, adrenal glands and kidneys have normal morphology. Abdominal bowel has normal caliber. Pelvis: Urinary bladder is collapsed. Uterus and adnexa are within normal limits for age. No free fluid in the pelvis. No significant pelvic or retroperitoneal adenopathy. Procedure Note Dominik Shepard MD - 11/02/2012 CT CHEST, ABDOMEN AND PELVIS WITH CONTRAST 11/02/2012 12:51 AM HISTORY: Chest pain, wide mediastinum on chest x-ray. Evaluate for dissection. No surgeries. COMPARISON: None. TECHNIQUE: Chest, abdomen and pelvis CT was performed following intravenous administration of 99 mL Isovue-370. FINDINGS: Chest: No dissection. Normal heart size. No mediastinal or hilar adenopathy. No airspace consolidation, pleural effusion or pneumothorax. No pulmonary nodules. There is a 2.8 cm mass in the right breast (image 30, series 4). Abdomen: No dissection. Liver, gallbladder, spleen, pancreas, adrenal glands and kidneys have normal morphology. Abdominal bowel has normal caliber. Pelvis: Urinary bladder is collapsed. Uterus and adnexa are within normal limits for age. No free fluid in the pelvis. No significant pelvic or retroperitoneal adenopathy. IMPRESSION IMPRESSION: 1. No evidence of dissection or other acute abnormality. 2. Right breast mass measures 2.8 cm. Diagnostic mammography and ultrasound recommended. 3. Agree with preliminary report provided by Dr. Guzman. DOMINIK SHEPARD MD us Hima Keys MD IMG CT ORDERABLES Final Result * Comprehensive metabolic panel (11/01/2012 9:40 PM WOUND SPECIALIST) Sodium 136 133 - 144 mmol/L [facility] Potassium 3.5 3.4 - 5.3 mmol/L [facility] Chloride 101 94 - 109 mmol/L [facility] Carbon Dioxide 26 20 - 32 mmol/L [facility] Anion Gap 8 6 - 17 mmol/L [facility] Glucose 99 60 - 99 mg/dL [facility] Urea Nitrogen 11 5 - 24 mg/dL [facility] Creatinine 0.77 0.52 - 1.04 mg/dL [facility] GFR Estimate 82 >60 mL/min/1.7 m2 [facility] GFR Estimate If Black >90 >60 mL/min/1.7 m2 [facility] Calcium 9.4 8.5 - 10.4 mg/dL [facility] Bilirubin Total 0.4 0.2 - 1.3 mg/dL [facility] Albumin 4.4 3.9 - 5.1 g/dL [facility] Protein Total 7.7 6.8 - 8.8 g/dL [facility] Alkaline Phosphatase 124 40 - 150 U/L [facility] ALT 38 0 - 50 U/L [facility] AST 27 0 - 45 U/L [facility] Blood specimen (specimen) 11/01/2012 9:40 PM WOUND SPECIALIST 11/01/2012 10:42 PM WOUND SPECIALIST us Hima Keys MD LAB - BLOOD ORDERABLES Final Result [facility] [place] [address], [facility] [phone] from Last 3 Months or Most Recently Relevant to Health Maintenance Insurance [facility] Care Teams Enrichment Director Relationship Specialty Start Date End Date [address] [address] PCP - General 11/01/12
--- OUTSIDE RECORDS SUMMARY | 2024-12-06 17:53 | XMS_ITS | Continuity of Care Document ---
Author Name NwHIN User [email or web address] llowed Address Unknown Organization Unknown Address Unknown Procedures FILTER APPLIED:Only known Procedures with Onset Date within the last 5 years Procedure Date Procedure Provider Darron contreras Information Status METABOLIC PANEL TOTAL CA (05040) Completed ROUTINE VENIPUNCTURE (28655) Completed ELECTROCARDIOGRAM TRACING (56424) Completed COMPLETE CBC W/AUTO DIFF WBC (43780) Completed EMERGENCY DEPT VISIT MOD MDM (19835) Completed ASSAY OF TROPONIN QUANT (40036) Completed COMPLETE CBC W/AUTO DIFF WBC (84427) Completed FIBRIN DEGRADATION QUANT (92163) Completed RBC SED RATE NONAUTOMATED (77650) Completed ASSAY OF TROPONIN QUANT (69157) Completed ASSAY OF NATRIURETIC PEPTIDE (11745) Completed COMPREHEN METABOLIC PANEL (55799) Completed X-RAY EXAM CHEST 2 VIEWS (89901) Completed ROUTINE VENIPUNCTURE (73359) Completed EMERGENCY DEPT VISIT MOD MDM (42039) Completed ELECTROCARDIOGRAM TRACING (37244) Completed Encounters FILTER APPLIED:Only known Encounters with Admission Date within the last 5 years Encounter Location Admission Discharge Billing Code Publication Manager Manuel joseph Emergency Rashad [facility] Emergency Cirilo Mendoza [facility]
--- OUTSIDE RECORDS SUMMARY | 2024-12-06 17:53 | XMS_ITS | Referral Summary ---
Author Organization [facility] Address [address] [place] [address]. [place] [address] Support Name Relationship Address Phone Reyes Zheng Personal Relationship [address] [place] [address] Salas Norm Personal Relationship Unknown [phone] Care Team Providers Care Cancer Program Consultant Name Role Phone [facility], [facility] Primary [...] on file Legal Sex Female 3:10 AM SUBSTATION OPERATOR APPRENTICE Gender Identity Not on file Sexual Orientation Not on file Last Filed Vital Signs Vital Sign Reading Time Taken Comments Blood Pressure 170/100 03/17/2024 2:38 PM CDT Pulse 78 03/17/2024 2:38 PM CDT Temperature - - Respiratory Rate 18 11/02/2012 1:28 AM SUBSTATION OPERATOR APPRENTICE Oxygen Saturation 95% 03/02/2018 11: 42 AM CDT Inhaled Oxygen Concentration - - Weight 129.9 kg (286 lb 4.8 oz) 018 11:42 AM CDT Height 175.3 cm (5' 9) 03/02/2018 11:4 2 AM CDT Body Mass Index 42.28 03/02/2018 11:42 AM CDT Plan of Treatment Not on file Procedures Procedure Name Priority Date/Time Associated Diagnosis Comments CT CHEST ABDOMEN PELVIS W/ CONTRAST 11/02/2012 12:51 AM SUBSTATION OPERATOR APPRENTICE COMPREHENSIVE METABOLIC PANEL STAT 11/01/2012 9:40 PM SUBSTATION OPERATOR APPRENTICE from Last 3 Months or Most Recently Relevant to Health Maintenance Results * CT Chest abdomen pelvis w contrast* (11/02/2012 12:51 AM SUBSTATION OPERATOR APPRENTICE) Anatomical Region Laterality Modality Abdomen, Chest, Pelvis, Hip Comp uted Tomography 11/02/2012 12:5 1 AM SUBSTATION OPERATOR APPRENTICE Impressions 11/02/2012 3:41 PM SUBSTATION OPERATOR APPRENTICE IMPRESSION: 1. No evidence of dissection or other acute abnormality. 2. Right breast mass measures 2.8 cm. Diagnostic mammography and ultrasound recommended. 3. Agree with preliminary report provided by Dr. Guzman. DOMINIK SHEPARD MD Narrative 11/02/2012 3:41 PM [address]ATION OPERATOR APPRENTICE CT CHEST, ABDOMEN AND PELVIS WITH CONTRAST [...] * Comprehensive metabolic panel (11/01/2012 9:40 PM SUBSTATION OPERATOR APPRENTICE) Sodium 136 133 - 144 mmol/L [facility] Potassium 3.5 3.4 - 5.3 mmol/L [facility] Chloride 101 94 - 109 mmol/L [facility] Carbon Dioxide 26 20 - 32 mmol/L [facility] Anion Gap 8 6 - 17 mmol/L [facility] Glucose 99 60 - 99 mg/dL [facility] Urea Nitrogen 11 5 - 24 mg/dL [facility] Creatinine 0.77 0.52 - 1.04 mg/dL [facility] GFR Estimate 82 >60 mL/min/1.7 m2 [facility] GFR Estimate If Black >90 >60 mL/min/1.7 m2 [facility] Calcium 9.4 8.5 - 10.4 mg/dL [facility] Bilirubin Total 0.4 0.2 - 1.3 mg/dL [facility] Albumin 4.4 3.9 - 5.1 g/dL [facility] Protein Total 7.7 6.8 - 8.8 g/dL [facility] Alkaline Phosphatase 124 40 - 150 U/L [facility] ALT 38 0 - 50 U/L [facility] AST 27 0 - 45 U/L [facility] Blood specimen (specimen) 11/01/2012 9:40 PM SUBSTATION OPERATOR APPRENTICE 11/01/2012 10:42 PM SUBSTATION OPERATOR APPRENTICE us Hima Keys MD LAB - BLOOD ORDERABLES Final Result Performing Organization Address City/State/[facility] Co de Phone Number [facility] [address] [place] [address], [facility] [phone] from Last 3 Months or Most Recently Relevant to Health Maintenance Insurance [facility] Care Teams Cancer Program Consultant Relationship Specialty Start Date End Date [facility], [address] [id number] PCP - General 11/01/12
--- OUTSIDE RECORDS SUMMARY | 2024-12-06 17:53 | XMS_ITS | Clinical Summary ---
Author Organization [employer] [facility] Address [place], [place] [address] Care Team Providers Care Accounts Payable Assistant Name Role Phone Michelle Mohna Primary Care Provider [facility] [place] [facility] [place] Allergies Active Allergy Reactions Criticality Noted Date Comments Animal Dander Itching 10/29/2024 Mold Anaphylaxis High 10/29/2024 Paroxetine Other - Describe In Comment Field High 04/28/2008 Manic episode Perfume *Unknown 10/29/2024 Aynqwcn-Hvy-Fbn Reductase Inhibitors Other - Describe In Comment Field 06/17/2021 Suicide thoughts Trazodone Other - Describe In Comment Field 07/05/2022 Suicidal ideation [place] Anaphylaxis High 08/29/2021 Medications EPINEPHrine (EPIPEN) 0.3 mg/0.3 mL auto-injectorIndic ations:Nut allergy Inject 0.3 mg (1 pen) intramuscular each time if needed for Allergic Reaction. 2 Each 3 06/19/20 Active clobetasol cream 0.05% (TEMOVATE) 0.05 % creamIndications:P soriasis Apply topically to affected area(s) two times daily. 60 g 3 09/04/20 22 Active Additional Information Patient taking differently:TopicalBID PRN, Informant: Patient's Recall, Reported on 04/17/2024 ibuprofen (ADVIL; MOTRIN) 800 mg tabletIndications: Arthralgia, unspecified joint Take 1 Tablet (800 mg) by mouth three times daily with meals. 90 Tablet 3 4 12:51 PM CDT 11/09/20 Active Additional Information Patient taking differently:800 mg OralBEDTIME, Informant: Patient's Recall, Reported on 04/17/2024 aspirin-acetaminop hen-caffeine (Excedrin Migraine) 250-250-65 mgIndications:Head ache syndrome Take 2 Tablets by mouth one time if needed for Headache. Can repeat same dose later in day if needed. Max acetaminophen dose: 4000mg in 24 hrs. 60 Tablet 3 11/09/20 Active triamcinolone 0.1 % ointmentIndication s:Inverse psoriasis Apply topically to affected area(s) two times daily. 454 g 1 12/13/19 24 Active Additional Information Patient taking differently:TopicalBID PRN, Informant: Patient's Recall, Reported on 04/17/2024 ketoconazole 2% shampoo (NIZORAL) 2 % shampooIndications :Scalp psoriasis Lather on damp scalp, leave on for 5min, then rinse with water 1-3 times per week. 120 mL 5 4 10:12 PM CDT 03/26/20 Active triamcinolone (ARISTOCORT; KENALOG) 0.1 % creamIndications:I nverse psoriasis Apply topically to affected area(s) three times daily. Alternate use between ointment and cream each week. 80 g 4 10:35 PM CDT 03/26/20 Active Additional Information Patient taking differently:TopicalTID PRN, Alternate use between ointment and cream each week., Informant: Patient's Recall, Reported on 04/17/2024 fexofenadine (TIEN) 180 mg tabletIndications: Allergic rhinitis due to pollen, unspecified seasonality Take 180 mg by mouth once daily. Do not crush or chew. 90 Tablet 3 03/26/20 24 Active pseudoephedrine (SUDAFED) 30 mg tablet Take 30 mg by mouth every 6 hours if needed for Nasal Congestion. Active lisinopriL (PRINIVIL; ZESTRIL) 2.5 mg tabletIndications: Controlled type 2 diabetes mellitus without complication, unspecified whether dedicated intermodal truck driver insulin use (HC),HTN (hypertension) Take 1 Tablet (2.5 mg) by mouth once daily. 90 Tablet 2 5 3:40 PM TRANSITIONS MANAGER 06/01/20 24 Active semaglutide (Ozempic) 2 mg/dose (8 mg/3 mL) subcutaneous penIndications:Con trolled type 2 diabetes mellitus without complication, without long-term current use of insulin (HC) Inject 2 mg subcutaneous once weekly. 9 mL 4 5 3:45 PM TRANSITIONS MANAGER 06/16/20 24 Active pregabalin (LYRICA) 150 mg capsuleIndications :RLS (restless legs syndrome) Take 1 capsule (150 mg total) by mouth at bedtime. Take two hours prior to symptom onset 30 Capsule 3 08/04/20 24 Active cholecalciferol, Vitamin D3, 2,000 unit tabletIndications: Vitamin D deficiency TAKE ONE TABLET BY MOUTH ONCE DAILY 90 Tablet 1 4 12:51 PM CDT 09/09/20 24 Active omeprazole (PRILOSEC) 40 mg Delayed-Release capsuleIndications :Gastroesophageal reflux disease, unspecified whether esophagitis present Take 1 Capsule (40 mg) by mouth once daily before a meal. 90 Capsule 3 09/16/20 24 Active blood-glucose meterIndications:C ontrolled type 2 diabetes mellitus without complication, unspecified whether skilled nursing insulin use (HC) Dispense meter covered by pts insurance. 1 Each 09/16/20 24 Active blood sugar diagnostic (Blood Glucose Test) stripIndications:C ontrolled type 2 diabetes mellitus without complication, unspecified whether dedicated intermodal truck driver insulin use (HC) Test 1-2 times per day. Dispense strips covered by pts insurance. 100 Each 09/17/20 24 Active risankizumab-rzaa (Skyrizi) 150 mg/mL subcutaneous penIndications:Pso riasis Inject the contents of 1 pre-filled pen (150 mg/mL) under the skin every 12 weeks. Rotate injection sites. 1 mL 4 10:02 AM TRANSITIONS MANAGER 09/23/20 Active Blood Pressure Monitor KitIndications:HTN (hypertension) Frequency of testing: daily 1 Each 10/06/20 Active lancetsIndications :Controlled type 2 diabetes mellitus without complication, unspecified whether dedicated intermodal truck driver insulin use (HC) As directed. Test 2-3 times per day. 100 Each 12 10/06/20 24 Active Walker - 4 wheelsIndications: Muscular deconditioning,POT S (postural orthostatic tachycardia syndrome),Primary osteoarthritis of right hip,Subluxation of patellofemoral joint, unspecified laterality, sequela For home use. Length of need: 99 1 Each 10/06/20 24 Active LORazepam (Ativan) 0.5 mg tab Take 1 to 4 tablets (0.5-2 mg) by mouth daily as needed for panic (30 day supply) 90 Tablet 2 4 3:30 PM TRANSITIONS MANAGER 10/13/20 24 Active prazosin (MINIPRESS) 2 mg capsule Take 2 (capsules) by mouth at bedtime 60 Capsule 3 5 3:40 PM TRANSITIONS MANAGER 10/13/20 24 Active buPROPion (Wellbutrin XL) 150 mg Extended-Release tablet Take 1 (tablet) by mouth daily 90 Tablet 1 10/13/20 24 Active Active Problems Problem Noted Date Diagnosed Date [id number] intermediate metabolizer 01/12/2023 Overview (01/12/2023): Caution: clopidogrel (Plavix) may be less effective for [id number] intermediate metabolizers. 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 Plantar fasciitis 05/03/2022 Migraine with status migrainosus, not intractabl e 05/03/2022 Benign paroxysmal positional vertigo 05/03/2022 Chronic GERD 05/03/2022 H/O total hysterectomy 03/22/2022 Controlled type 2 diabetes m ellitus without complication, without long-term current use of insulin 08/09/2021 Irritable bowel syndrome wit h both constipation and diarrhea 06/29/2021 Iron deficiency anemia 11/23/2015 SIRIA 09/23/2015 AHI-23 10/04/2015 Restless legs syndrome (RLS) 10/04/2015 PTSD (post-traumatic stress disorder) 10/04/2015 Tobacco use disorder 06/16/2014 PCOS (polycystic ovarian syndrome) 10/22/2013 Depression 10/22/2013 HTN (hypertension) 05/16/2013 PMDD (premenstrual dysphoric disorder) 3 Vitamin D deficiency 11/20/2011 Morbid obesity 12/07/2010 Adjustment disorder with depressed mood 06/09/20 08 FAMILY HISTORY OF OVARIAN MALIGNANCY 06/09/2008 Tachycardia, unspecified 07/20/2007 Overview (07/20/2007): nl echo 2002 Resolved Problems Problem Noted Date Diagnosed Date Resolved Date Milagros 11/09/2023 03/26/2024 Irritable bowel syndrome 05/03/202211/2023 Vitamin D deficiency 06/16/2014 014 Elevated BP 11/17/2011 05/16/2013 Impaired fasting glucose 12/06/201011/2023 Overview (12/06/2010): See result note 12/06/2010 Encounters Date Type Department Care Team Description 11/28/2024 Telephone [facility] [address] [place] [address] Michelle Mohan PA Appointment Request (Sinus Infection ) 11/28/2024 Nurse Triage [facility] [address] [place] [address] Michelle Mohan PA Error-please disregard 11/28/2024 Telephone [facility] [address] [place] [address] Joanne Donnelly PA Appointment (Inappropriate appt, recommend pt be seen in ER per provider.) 11/27/2024 6:30 PM TRANSITIONS MANAGER Telemedicine [facility] [address] [place] [address] Ezequiel Clark PA Headache 11/27/2024 Travel 10/21/2024 2:00 PM TRANSITIONS MANAGER Procedure Only [facility] [address] [place] [address] Martha Del Real L Ac Acupuncture 10/20/2024 Travel 10/09/2024 1:00 PM TRANSITIONS MANAGER Procedure Only [facility] [address] [place] [address] Martha Del Real L Ac Acupuncture (Initial) 10/08/2024 Travel 10/06/2024 3:00 PM TRANSITIONS MANAGER Office Visit [facility] [address] [place] [address] Michelle Mohan PA Follow Up (Still has vertigo- ); Lab (Would like some labs done) 10/06/2024 Travel 09/30/2024 Telephone [facility] [address] [facility] [address] [place] [phone] Mickey Arnold MD Cardiology Appointment 09/23/2024 Telephone [facility] [address] [place] [address] Hadley Helm MD Medication Management 09/16/2024 8:50 AM CDT Telemedicine [facility] [address] [place] [address] Michelle Mohan PA Vertigo (X 5 weeks / wondering what blood sugars look like, would like glucometer); Concerns (Handicap sticker renewal ); Medication Management (omeprazole) 09/15/2024 Travel 09/12/2024 Refill [facility] [address] [place] [address] Michelle Mohan PA Refill Request (Prilosec) 09/08/2024 Refill [facility] [address] [place] [address] Michelle Mohan PA Refill Request (Vitamin D) from Last 3 Months Immunizations Name Administration Dates Next Due COVID-19 VACCINE SPIKEVAX (M ODERNA 50MCG/0.5ML) 12YO+ PFS 10/06/2024 INFLUENZA, IIV3 PF (AGE >= 6 MO) 10/06/2024 Influenza, IIV3 (Age >=3 years) 08/18/2009 Influenza, IIV4 11/11/2021,12/07/2015 Tdap 08/25/2022 Tuberculin (PPD) 12/07/2015 Family History Medical History Relation Name Comments Heart Disease Father Raul quadruple bypa ss Hypertension Father Raul Cancer-breast Maternal Aunt Heart Disease Maternal Uncle Chris CHF @ 5 0 yo Cancer Mother Kylie Ovarian Cancer-ovarian Mother Kylie Cancer Other 1 ovarian- three maternal great aunts Other Other 2 cousin amyloidosis Cancer-breast Paternal Aunt 1 2 Hypertension Paternal Aunt 2 Heart Disease Paternal Uncle many w Heart Disease Heart Disease Sister Zenaida Barboza Cardiomyopathy and Polymyositis Relation Name Status Comments Father Raul Alive Maternal Aunt Maternal Uncle Chris Mother Kylie (Age 60) Other 1 Other 2 cousin Alive Paternal Aunt 1 2 Alive Paternal Aunt 2 Paternal Uncle Sister Zenaida Barboza Alive Social History Tobacco Use Types Packs/Day Years Used Date Smoking Tobacco: Former Cigarettes 1 5 0 03/02/2014 - 03/02/2019 Smokeless Tobacco: Never Tobacco Cessation:Counseling Given: Not Answered Comments:1 pack every day Alcohol Use Standard Drinks/Week Comments Not Currently 0 (1 standard drink = 0.6 oz pur e alcohol) stopped 7 years ago [facility] Utilities Answer Date Recorded Do you have trouble paying f or utilities (for example, heat, electricity, water, phone)? No 10/06/2024 PHQ-2 Answer Date Recorded PHQ-2 TOTAL SCORE 6 07/27/2023 Social Connections Answer Date Recorded Do you often feel lonely or isolated from those around you? 4 10/06/2024 Financial Resource Strain Answer Date R ecorded Difficulty of Paying Living Expenses 2 10/06/2024 Difficulty of Paying Living Expenses 1 10/06/2024 Food Insecurity Answer Date Recorded Do you worry your food will run out before you are able to buy more? 2 10/06/2024 Transportation Needs Answer Date Record ed Does lack of transportation keep you from medica l appointments? 1 10/06/2024 Does lack of transportation keep you from work, meetings or getting things that you need? 1 10/06/2024 Housing Stability Answer Date Recorded What is your housing situation today? 2 10/06/2024 Interpersonal Safety Answer Date Record ed Are you being hit, kicked, p ushed or yelled at (see row info)? 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 Not on file Not on file Not on file Obstetrics History Para Term AB IAB SAB Ectopic Multiple Livin g Live Births 2 2 2 0 0 0 0 0 2 Date Outcome GA Total Labor Labor/2nd/3rd Weight Sex Type Anes PTL Jenifer A1 A5 Name Clin Term Term Comments x2 Last Filed Vital Signs Vital Sign Reading Time Taken Comments Blood Pressure 126/81 10/06/2024 3:24 PM TRANSITIONS MANAGER Pulse 102 10/06/2024 3:24 PM TRANSITIONS MANAGER Temperature 35.9 C (96.6 F) 04/17/2024 12:54 PM CDT Respiratory Rate 18 04/17/2024 12:54 PM CDT Oxygen Saturation 96% 05/30/2024 10:08 AM CDT Inhaled Oxygen Concentration - - Weight 124.3 kg (274 lb) 10/06/2024 3:24 PM TRANSITIONS MANAGER Height 172.7 cm (5' 8) 04/17/2024 12:54 PM CDT Body Mass Index 41.66 04/17/2024 12:54 PM CDT Plan of Treatment Health Maintenance Due Date Last Done Comments Hepatitis B series for Diabe yobani (1 of 3 - 19+ 3-dose series) 1988 Pneumococcal series for age 50+ (1 of 2 - PCV) 1988 Zoster (shingles) series for age 50+ (1 of 2) 1988 Mammogram for age 45-75 2014 11/28/2012, 11/07 Depression screening for age 12+ 07/31/2024 07/31/2023, 07/27/2023, 07/08/2021, Additional history exists COVID-19 vaccine series ( season) 2024 10/06/2024, 11/11/2021, 03/11/2021, Additional history exists BMI (ht and wt on same day) for age 18+ 03/24/2025 03/24/2024, 06/28/2016, 04/21/2016, Additional history exists Colonoscopy through age 75 03/28/2027 03/28/2017 Lipids for age 45-75 04/17/2029 04/17/2024, 12/12/2022, 02/24/2022, Additional history exists Tetanus booster 08/25/2032 08/25/2022, 11/2004 (Completed outside of [facility]) HIV for age 15-65 Completed 12/07/2015, , 02/15/2008 Hepatitis C screening for ag e 18-79 Completed 12/07/2015, 08/19/2014 Tdap Completed 08/25/2022 Influenza for age 50-64 Completed 10/06/20, 11/11/2021, 12/07/2015, Additional history exists Procedures Procedure Name Priority Date/Time Associated Diagnosis Comments ACUPUNCTURE PLAN OF CARE Routine 10/21/2024 2:04 PM TRANSITIONS MANAGER Vertigo Other chronic pain FERRITIN Routine 10/06/2024 4:04 PM TRANSITIONS MANAGER Anemia, unspecified type RLS (restless legs syndrome) LIPASE Routine 10/06/2024 4:04 PM TRANSITIONS MANAGER Abdominal pain, epigastric BASIC METABOLIC PANEL Routine 10/06/2024 4:04 PM TRANSITIONS MANAGER HTN (hypertension) VITAMIN B12 Routine 10/06/2024 4:04 PM TRANSITIONS MANAGER Anemia, unspecified type CBC WITH AUTO DIFFERENTIAL Routine 10/06/2024 4:04 PM TRANSITIONS MANAGER Anemia, unspecified type HEMOGLOBIN A1C Routine 10/06/2024 4:04 PM TRANSITIONS MANAGER Controlled type 2 diabetes mellitus without complication, unspecified whether skilled nursing insulin use (HC) LIPID PANEL Today 04/17/2024 12:58 PM CDT SCAN-COLONOSCOPY 03/28/2017 12:0 0 AM CDT ANTI HIV 1/2 Routine 12/07/2015 4:24 PM TRANSITIONS MANAGER Screen for STD (sexually transmitted disease) ANTI HCV Routine 12/07/2015 4:24 PM TRANSITIONS MANAGER Screen for STD (sexually transmitted disease) XR FFDM MAMMO UNI ADDL VIEWS RIGHT (IA) Routine 11/28/2012 9:48 AM TRANSITIONS MANAGER Fibroadenoma of breast from Last 3 Months or Most Recently Relevant to Health Maintenance Results * (ABNORMAL) HEMOGLOBIN A1C (10/06/2024 4:04 PM TRANSITIONS MANAGER) HEMOGLOBIN A1C 6.0(H) <5.7 % of total Hgb [facility] Comment: For someone without known diabetes, a hemoglobin A1c value between 5.7% and 6.4% is consistent with prediabetes and should be confirmed with a follow-up test. For someone with known diabetes, a value <7% indicates that their diabetes is well controlled. A1c targets should be individualized based on duration of diabetes, age, comorbid conditions, and other considerations. This assay result is consistent with an increased risk of diabetes. Currently, no consensus exists regarding use of hemoglobin A1c for diagnosis of diabetes for children. Blood BLOOD SPECIMEN / Unknown 10/06/2024 4:04 PM TRANSITIONS MANAGER 10/06/2024 4:06 PM TRANSITIONS MANAGER Narrative [facility] - 10/07/2024 3:56 AM TRANSITIONS MANAGER FASTING:NO FASTING: NO Michelle LINARES CHEMISTRY Final R esult [facility] [address] [place] [address], [facility] [address] [place] [address] * (ABNORMAL) CBC AND DIFFERENTIAL (10/06/2024 4:04 PM TRANSITIONS MANAGER) [facility] WHITE BLOOD CELL COUNT 6.3 3.8 - 10.8 Thousand/u L [facility] RED BLOOD CELL COUNT 4.92 3.80 - 5.10 Million/uL [facility] HEMOGLOBIN 12.7 11.7 - 15.5 g/dL [facility] HEMATOCRIT 41.0 35.0 - 45.0 % [facility] MCV 83.3 80.0 - 100.0 fL [facility] MCH 25.8(L) 27.0 - 33.0 pg [facility] MCHC 31.0(L) 32.0 - 36.0 g/dL [facility] Comment: For adults, a slight decrease in the calculated MCHC value (in the range of 30 to 32 g/dL) is most likely not clinically significant; however, it should be interpreted with caution in correlation with other red cell parameters and the patient's clinical condition. RDW 15.6(H) 11.0 - 15.0 % [facility] PLATELET COUNT 290 140 - 400 Thousand/u L [facility] MPV 10.4 7.5 - 12.5 fL [facility] ABSOLUTE NEUTROPHILS 4,076 1,500 - 7,800 cells/uL [facility] ABSOLUTE LYMPHOCYTES 1,651 850 - 3,900 cells/uL [facility] ABSOLUTE MONOCYTES 353 200 - 950 cells/uL [facility] ABSOLUTE EOSINOPHILS 189 15 - 500 cells/uL [facility] ABSOLUTE BASOPHILS 32 0 - 200 cells/uL [facility] NEUTROPHILS 64.7 % [facility] LYMPHOCYTES 26.2 % [facility] MONOCYTES 5.6 % [facility] EOSINOPHILS 3.0 % [facility] BASOPHILS 0.5 % [facility] Blood BLOOD SPECIMEN / Unknown 10/06/2024 4:04 PM TRANSITIONS MANAGER 10/06/2024 4:06 PM TRANSITIONS MANAGER Narrative [facility] - 10/07/2024 3:23 AM TRANSITIONS MANAGER FASTING:NO FASTING: NO Michelle LINARES HEMATOLOGY Final R esult Performing Organization Address [facility]/ZIP Co de Phone Number [facility] [address] [place] [address], [place] [phone] [facility] [address] [place] [address] * LIPASE (10/06/2024 4:04 PM TRANSITIONS MANAGER) LIPASE 46 7 - 60 U/L [facility] Blood BLOOD SPECIMEN / Unknown 10/06/2024 4:04 PM TRANSITIONS MANAGER 10/06/2024 4:06 PM TRANSITIONS MANAGER Narrative [facility] - 10/07/2024 11:46 AM TRANSITIONS MANAGER FASTING:NO FASTING: NO Michelle LINARES CHEMISTRY Final R esult Performing Organization Address [facility] de Phone Number [facility] [address] [place] [address], [place] [phone] [facility] [address] [facility] [place] [address] * (ABNORMAL) FERRITIN (10/06/2024 4:04 PM TRANSITIONS MANAGER) FERRITIN 14(L) 16 - 232 ng/mL [facility] Blood BLOOD SPECIMEN / Unknown 10/06/2024 4:04 PM TRANSITIONS MANAGER 10/06/2024 4:06 PM TRANSITIONS MANAGER Narrative [facility] - 10/07/2024 6:06 AM TRANSITIONS MANAGER FASTING:NO FASTING: NO Michelle LINARES CHEMISTRY Final R esult [facility] [place] [address], [address] [address] * VITAMIN B12 (10/06/2024 4:04 PM TRANSITIONS MANAGER) [facility] VITAMIN B12 384 200 - 1,100 pg/mL [facility] Comment: Please Note: Although the reference range for vitamin B12 is 200-1100 pg/mL, it has been reported that between 5 and 10% of patients with values between 200 and 400 pg/mL may experience neuropsychiatric and hematologic abnormalities due to occult B12 deficiency; less than 1% of patients with values above 400 pg/mL will have symptoms. Blood BLOOD SPECIMEN / Unknown 10/06/2024 4:04 PM TRANSITIONS MANAGER 10/06/2024 4:06 PM TRANSITIONS MANAGER Narrative [facility] - 10/07/2024 6:06 AM TRANSITIONS MANAGER FASTING:NO FASTING: NO Michelle LINARES CHEMISTRY Final R esult [facility] [address] [address], [address] [address] * BASIC METABOLIC PANEL (10/06/2024 4:04 PM TRANSITIONS MANAGER) [facility] GLUCOSE 118 65 - 139 mg/dL [facility] Comment: Non-fasting reference interval UREA NITROGEN (BUN) 12 7 - 25 mg/dL [facility] CREATININE 0.87 0.50 - 1.03 mg/dL [facility] EGFR 79 > OR = 60 mL/min/1. 73m2 [facility] BUN/CREATININE RATIO SEE NOTE: (calc) [facility] Comment: Not Reported: BUN and Creatinine are within reference range. SODIUM 142 135 - 146 mmol/L [facility] POTASSIUM 4.3 3.5 - 5.3 mmol/L [facility] CHLORIDE 107 98 - 110 mmol/L [facility] CARBON DIOXIDE 25 20 - 32 mmol/L [facility] ELECTROLYTE BALANCE 10 7 - 17 mmol/L (calc) [facility] CALCIUM 9.1 8.6 - 10.4 mg/dL [facility] Blood BLOOD SPECIMEN / Unknown 10/06/2024 4:04 PM TRANSITIONS MANAGER 10/06/2024 4:06 PM TRANSITIONS MANAGER Narrative [facility] - 10/07/2024 11:46 AM TRANSITIONS MANAGER FASTING:NO FASTING: NO us Michelle LINARES CHEMISTRY Final R esult [facility] [address] [place] [address], [facility] [address] [place] [address] * (ABNORMAL) LIPID PANEL (04/17/2024 12:58 PM CDT) [facility] CHOLESTEROL,TOTAL 197 100 - 199 mg/dL 04/17/2024 1:57 PM CDT [facility] Comment: Cholesterol, Total Reference Ranges Desirable <200 mg/dL Borderline 200-239 mg/dL High >=240 mg/dL TRIGLYCERIDES 102 <150 mg/dL 04/17/2024 1:57 PM CDT [facility] HDL CHOLESTEROL 48 >40 mg/dL 1:57 PM CDT [facility] NON-HDL CHOLESTEROL 149(H) <145 mg/dl 04/17/2024 1:57 PM CDT [facility] CHOL/HDL RATIO 4.10 <4.50 04/17/2024 1:57 PM CDT [facility] LDL CHOLESTEROL 129 <=130 mg/dL 04/17/2024 1:57 PM CDT [facility] VLDL CHOLESTEROL 20 <=30 mg/dL 04/17/2024 1:57 PM CDT [facility] PROVIDER ORDERED STATUS RANDOM 04/17/2024 1:57 PM CDT [facility] Blood BLOOD SPECIMEN / Unknown Butterfly / Unknown 04/17/2024 12:58 PM CDT 04/17/2024 1:31 PM CDT us Tiffanie Coughlin NP CHEMISTRY Fin al Result Performing Organization Address [facility]/ZIP Co de Phone Number [facility] [address] [place] [address], * SCAN-COLONOSCOPY (03/28/2017 12:00 AM CDT) us Scanner OTHER Final Result * ANTI HCV (12/07/2015 4:24 PM TRANSITIONS MANAGER) HEPATITIS C ANTIBODY Non-Reacti ve Non-Reacti ve 12/08/2015 1:27 PM TRANSITIONS MANAGER [facility] TRA LABORATORY Blood specimen (specimen) BLOOD SPECIMEN / Unknown Venipuncture / Unknown 12/07/2015 4:24 PM TRANSITIONS MANAGER 12/07/2015 4:24 PM TRANSITIONS MANAGER Narrative [facility] - 12/08/2015 1:27 PM TRANSITIONS MANAGER Antibodies to HCV not detected; does not exclude the possibility of exposure to HCV. us Michelle LINARES SEND OUTS Final R esult Performing Organization Address City/[facility]/ZIP Co de Phone Number [facility] [address] [place] [address], * ANTI HIV 1/2 (12/07/2015 4:24 PM TRANSITIONS MANAGER) HIV-1/HIV-2 ANTIBODY Non-Reacti ve Non-Reacti ve 12/08/2015 1:21 PM TRANSITIONS MANAGER [facility] TRAL LABORATORY Blood specimen (specimen) BLOOD SPECIMEN / Unknown Venipuncture / Unknown 12/07/2015 4:24 PM TRANSITIONS MANAGER 12/07/2015 4:24 PM TRANSITIONS MANAGER Narrative [facility] - 12/08/2015 1:21 PM TRANSITIONS MANAGER HIV-1 p24 and HIV-1/HIV-2 Ab not detected us Michelle LINARES SEND OUTS Final R esult [facility] [address] [place] [address], [place] * XR FFDM MAMMO UNI ADDL VIEWS RIGHT (11/28/2012 9:48 AM TRANSITIONS MANAGER) Anatomical Region Laterality Modality BREASTS, Breast Right Right Mammograph y Narrative 11/29/2012 6:42 AM TRANSITIONS MANAGER RIGHT BREAST DIGITAL DIAGNOSTIC MAMMOGRAM WITH ADDITIONAL VIEWS, 11/28/2012 CLINICAL HISTORY: 42-year-old woman who had an ultrasound guided core biopsy of a 2.9 cm mass in the upper outer quadrant of the RIGHT mid breast at the 10 o'clock position at the [facility] on 11/08/2012 which yielded a fibroadenoma. Because of its size, excisional biopsy was recommended. When reviewing the routine mammograms, a vague 2.0 cm area of architectural distortion was noted in the RIGHT posterolateral breast about 2-3 cm posterior to the biopsied mass only on the CC view. The patient has been recalled for additional mammographic evaluation. FINDINGS: RIGHT mediolateral, exaggerated CC and medial and lateral rolled exaggerated CC views were obtained as well as a spot view of the RIGHT posterolateral breast in the CC projection. The vague architectural distortion does not persist on these additional views and likely represented superimposition of normal breast tissue. CONCLUSION: No mammographic evidence for malignancy. The recently biopsied 3 cm mass is seen. The patient is scheduled to have this excised in the near future. ACR 2 Benign Finding(s) Billie De Oliveira M.D. Breast Radiologist [email or web address] DLD/gl / Procedure Note Billie De Oliveira MD - 11/29/2012 RIGHT BREAST DIGITAL DIAGNOSTIC MAMMOGRAM WITH ADDITIONAL VIEWS,11/28/2012 CLINICAL HISTORY: 42-year-old woman who had an ultrasound guided corebiopsy of a 2.9 cm mass in the upper outer quadrant of the RIGHT midbreast at the 10 o'clock position at the [facility] on 11/08/2012which yielded a fibroadenoma. Because of its size, excisional biopsy wasrecommended. When reviewing the routine mammograms, a vague 2.0 cm area ofarchitectural distortion was noted in the RIGHT posterolateral breastabout 2-3 cm posterior to the biopsied mass only on the CC view. Thepatient has been recalled for additional mammographic evaluation. FINDINGS: RIGHT mediolateral, exaggerated CC and medial and lateral rolledexaggerated CC views were obtained as well as a spot view of the RIGHTposterolateral breast in the CC projection. The vague architecturaldistortion does not persist on these additional views and likelyrepresented superimposition of normal breast tissue. CONCLUSION: No mammographic evidence for malignancy. The recently biopsied3 cm mass is seen. The patient is scheduled to have this excised in thenear future. ACR 2 Benign Finding(s) Billie De Oliveira M.D. Breast Radiologist [email or web address] DLD/gl / Michelle LINARES MAMMO Final R esult from Last 3 Months or Most Recently Relevant to Health Maintenance Insurance MEDICARE PART A HB ONLY [facility] MEDICARE PPS [address] [facility] [address] [place] [id number] Advance Directives * Full Code (Latest Code Status on File) Date Activated Date Inactivated Comments 04/17/2024 12:56 PM 04/17/2024 6:32 PM Question Answer Comments Code Status Discussion: Reviewed Preferences * Full Code Date Activated Date Inactivated Comments 10/21/2013 9:55 PM 10/22/2013 3:18 PM * Full Code Date Activated Date Inactivated Comments 12/11/2012 9:39 AM 12/11/2012 4:36 PM Care Teams Accounts Payable Assistant Relationship Specialty Start Date End Date [place] [address] PCP - General Physician Assignment Desk Editor 02/14/[address] [place] [address] 05/31/22 [facility] [address], [place] [address] 09/05/23
[2024-12-06 18:22] VITALS: BP 119/81; PULSE 80; RESP 18; TEMP 36.5; O2SAT 97; BMI 41.8
[2024-12-06 20:00] VITALS: BP 147/102; PULSE 81; RESP 16; O2SAT 97
--- NOTE | 2024-12-06 20:02 | ED.GENADULT ---
HPI - General Adult General Chief complaint: Headache/Migraine Stated complaint: giant cell arteritis Time Seen by Provider: 12/06/24 20:02 History of Present Illness HPI narrative: Pt was told to come in by UC provider for possible giant cell arteritis earlier this week. Pt is c/o left sided samaritan pain and a migraine lasting over a week. Feels tender to the touch, pain comes and goes. Having spots in vision. Pt is also concerned of a separate infection on her skin and is worried this could be contributing to her headache. Has been unable to get in to her primary care doctor. 54-year-old woman presenting to the emergency department concern headache Has been advised by 3 providers now to be seen for evaluation for temporal arteritis/giant cell arteritis. 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 Does acknowledge that her ESR tends to be little elevated CRP as well. She does not necessarily need treatment for the headache otherwise. This has been going on now since . She is not a drinker. Otherwise has had is psoriatic lesions in the folds of her skin apparently they were biopsied under her breast this is more in her abdomen is draining a little bit wondering maybe if she could be infected here. Has not had a fever. She has though over the last now 10 or 11 days had a persistent headache at the left samaritan tender to touch here. No trauma noted. This headache has been present as noted persistently all day and night goes to bed with it wakes up with it can wake her up at night as well. Apparently there was some suggestion of cluster headache as well. She is not experiencing eye pain directly nor rhinorrhea. Does have an underlying history of migraines with aura seeming to affect the left eye historically as gestured. This is different however. She has seen some spots intermittently. And the headache or the pulsing there comes and goes though up medium level of pain has been more persistent. Related Data Home Medications ?Medication ?Instructions ?Recorded ?Confirmed acetaminophen 500 mg tablet 500 mg PO Q6H 08/25/22 01/03/24 epinephrine 0.3 mg/0.3 mL 0.3 mg IM .each time PRN 08/25/22 01/03/24 injection, auto-injector lisinopril 2.5 mg tablet 2.5 mg PO DAILY 08/25/22 12/06/24 omeprazole 40 mg capsule,delayed 40 mg PO DAILY 08/25/22 12/06/24 release risankizumab-rzaa 150 mg/mL 150 mg subcut Q12W 08/25/22 12/06/24 subcutaneous pen injector (Skyrizi) gabapentin 600 mg tablet 900 mg PO QHS 12/25/22 01/03/24 ibuprofen 800 mg tablet 800 mg PO Q8H PRN 12/25/22 01/03/24 loratadine 10 mg tablet 10 mg PO Q24H 01/02/23 01/03/24 triamcinolone acetonide 0.1 % applic topical 10/30/23 topical cream cholecalciferol (vitamin D3) 50 50 mcg PO DAILY 01/03/24 01/03/24 mcg (2,000 unit) tablet bupropion HCl 150 mg 24 hr tablet, 150 mg PO DAILY 12/06/24 12/06/24 extended release lorazepam 0.5 mg tablet mg PO 12/06/24 prazosin 2 mg capsule 2 mg PO BID 12/06/24 12/06/24 pregabalin 150 mg capsule mg PO DAILY 12/06/24 semaglutide 2 mg/dose (8 mg/3 mL) mg subcut 12/06/24 subcutaneous pen injector (Ozempic) Previous Rx's ?Medication ?Instructions ?Recorded furosemide 40 mg tablet (Lasix) 40 mg PO DAILY #7 tabs 10/30/23 Allergies Allergy/AdvReac Type Severity Reaction Status Date / Time [id number] Reductase Allergy Severe suicidal Verified 12/06/24 18:30 Inhibitor thoughts trazodone Allergy Severe suicidal Verified 12/06/24 18:30 ideation paroxetine Allergy Unknown Unknown,Not Verified 12/06/24 18:30 Entered walnut Allergy Unknown Verified 12/06/24 18:30 statins Allergy Unknown Unknown Uncoded 04/28/24 08:31 Review of Systems Status of ROS: Reports: 6 or more systems reviewed and unremarkable except as noted in History and below [facility] Medical History Tachycardia, unspecified ?R00.0 - Tachycardia, unspecified (ICD-10) Adjustment disorder with depressed mood ?F43.21 - Adjustment disorder with depressed mood (ICD-10) Impaired fasting glucose ?R73.01 - Impaired fasting glucose (ICD-10) Morbid obesity ?E66.01 - Morbid (severe) obesity due to excess calories (ICD-10) Vitamin D deficiency ?E55.9 - Vitamin D deficiency, unspecified (ICD-10) PMDD (premenstrual dysphoric disorder) ?F32.81 - Premenstrual dysphoric disorder (ICD-10) HTN (hypertension) ?I10 - Essential (primary) hypertension (ICD-10) Depression ?F32.A - Depression, unspecified (ICD-10) PCOS (polycystic ovarian syndrome) ?E28.2 - Polycystic ovarian syndrome (ICD-10) Tobacco use disorder ?F17.200 - Nicotine dependence, unspecified, uncomplicated (ICD-10) PTSD (post-traumatic stress disorder) ?F43.10 - Post-traumatic stress disorder, unspecified (ICD-10) RLS (restless legs syndrome) ?G25.81 - Restless legs syndrome (ICD-10) SIRIA (obstructive sleep apnea) ?G47.33 - Obstructive sleep apnea (adult) (pediatric) (ICD-10) Iron deficiency anemia ?D50.9 - Iron deficiency anemia, unspecified (ICD-10) Irritable bowel syndrome with both constipation and diarrhea ?K58.2 - Mixed irritable bowel syndrome (ICD-10) Controlled type 2 diabetes mellitus without complication, with long-term current use of insulin ?E11.9 - Type 2 diabetes mellitus without complications (ICD-10) ?Z79.4 - ocean transportation intermediary (current) use of insulin (ICD-10) IBS (irritable bowel syndrome) ?K58.9 - Irritable bowel syndrome without diarrhea (ICD-10) Chronic GERD ?K21.9 - Gastro-esophageal reflux disease without esophagitis (ICD-10) BPPV (benign paroxysmal positional vertigo) ?H81.10 - Benign paroxysmal vertigo, unspecified ear (ICD-10) Migraine with status migrainosus, not intractable ?G43.901 - Migraine, unspecified, not intractable, with status migrainosus (ICD-10) Plantar fasciitis ?M72.2 - Plantar fascial fibromatosis (ICD-10) Androgenic alopecia ?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 - Androgenic alopecia, unspecified (ICD-10) Nightmare ?F51.5 - Nightmare disorder (ICD-10) Seasonal affective disorder ?F33.8 - Other recurrent depressive disorders (ICD-10) Pulmonary nodule ?R91.1 - Solitary pulmonary nodule (ICD-10) Numbness and tingling in left arm ?R20.0 - Anesthesia of skin (ICD-10) ?R20.2 - Paresthesia of skin (ICD-10) Generalized anxiety disorder ?F41.1 - Generalized anxiety disorder (ICD-10) POTS (postural orthostatic tachycardia syndrome) ?I49.8 - Other specified cardiac arrhythmias (ICD-10) Suicidal ideations ?R45.851 - Suicidal ideations (ICD-10) 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 - Agoraphobia with panic disorder (ICD-10) Muscular deconditioning ?R29.898 - Other symptoms and signs involving the musculoskeletal system (ICD-10) Psoriasis, unspecified ?L40.9 - Psoriasis, unspecified (ICD-10) Dysphagia, unspecified ?R13.10 - Dysphagia, unspecified (ICD-10) Orthostatic hypotension ?I95.1 - Orthostatic hypotension (ICD-10) Surgical History History of salpingo-oophorectomy ?Z90.79 - Acquired absence of other genital organ(s) (ICD-10) ?Z90.721 - Acquired absence of ovaries, unilateral (ICD-10) Status post open reduction and internal fixation (ORIF) of fracture ?Z98.890 - Other specified postprocedural states (ICD-10) ?Z87.81 - Personal history of (healed) traumatic fracture (ICD-10) S/P breast lumpectomy ?Z98.890 - Other specified postprocedural states (ICD-10) H/O total hysterectomy ?Z90.710 - Acquired absence of both cervix and uterus (ICD-10) H/O: hysterectomy ?Z90.710 - Acquired absence of both cervix and uterus (ICD-10) Social History Smoking Status: Former smoker Do you use any of these nicotine containing products: None Second hand tobacco smoke exposure: No How often do you have a drink containing alcohol: never How often do you have six or more drinks on one occasion: Never AUDIT-C Alcohol total score: 0 Non-prescribed substance use: denies use service: No Exam Narrative: Exam Narrative: Erosion without cellulitic changes/induration or marked erythema under the left pannus. Tender at the left samaritan to palpation. No pulsatile swelling. I could imagine that this is a little puffy relative to the right samaritan. Fully alert. Speaking easily. Cranial nerves 2-12 are intact. Pupils are 3 mm and briskly reactive. Moving all extremities without difficulty. Neck is supple without lymphadenopathy. Const: Vital Signs, click to edit/add: Vital Signs - 24 hr 12/06/24 18:22 12/06/24 20:00 12/06/24 22:31 Temperature 97.7 F Pulse Rate [Right Pulse Oximeter] 80 81 Respiratory Rate 18 16 16 Blood Pressure [Ri ght Upper Arm] 119/81 147/102 H Pulse Oximetry 97 97 4 L Oxygen Delivery Me thod Room Air Nasal Cannula Oxygen Flow Rate 4 Documenting provider has reviewed patient's vital signs: yes Course Vital Signs Vital signs: Initial Vital Signs Temperature 97.7 F 12/06/24 18:22 Temperature Source Temporal Artery Scan 12/06/24 18:22 Pulse Rate 80 12/06/24 18:22 Pulse Rhythm Regular 12/06/24 18:22 Respiratory Rate 18 12/06/24 18:22 Blood Pressure 119/81 12/06/24 18:22 Blood Pressure Mean 93 12/06/24 18:22 Blood Pressure Position Sitting 12/06/24 18:22 Pulse Oximetry 97 12/06/24 18:22 Oxygen Delivery Method Room Air 12/06/24 18:22 Vital Signs Temperature 97.7 F 12/06/24 18:22 Pulse Rate 80 12/06/24 18:22 Respiratory Rate 18 12/06/24 18:22 Blood Pressure 119/81 12/06/24 18:22 Pulse Oximetry 97 12/06/24 18:22 Oxygen Delivery Method Room Air 12/06/24 18:22 Temperature 97.7 F 12/06/24 18:22 Pulse Rate 81 12/06/24 20:00 Respiratory Rate 16 12/06/24 22:31 Blood Pressure 147/102 H 12/06/24 20:00 Pulse Oximetry 4 L 12/06/24 22:31 Oxygen Delivery Method Nasal Cannula 12/06/24 22:31 Oxygen Flow Rate 4 12/06/24 22:31 Medications Administered Medications: Discontinued Medications Generic Name Dose Route Start Last Admin Trade Name Janee PRN Reason Stop Dose Admin Dexamethasone 10 mg 12/06/24 23:28 12/06/24 23:52 Dexamethasone 10 Mg/Ml Inj IVP 12/06/24 23:29 10 mg ONCE ONE Administration Sodium Chloride 1,000 mls @ 1,000 mls/hr 12/06/24 21:02 12/07/24 00:42 0.9 % Sodium Chloride 1000 Ml IV 12/06/24 22:01 Infused .Q1H ONE Infusion Ketamine HCl 20 mg/ Sodium 100.2 mls @ 200.4 mls/hr 12/06/24 23:24 12/07/24 00:42 Chloride IVPB 12/06/24 23:25 Infused ONCE ONE Infusion Ketorolac Tromethamine 30 mg 12/06/24 21:02 12/06/24 21:37 Ketorolac 30 Mg/Ml Inj IVP 12/06/24 21:03 30 mg ONCE ONE Administration Medical Decision Making MDM Narrative Medical decision making narrative: Did not want pain relief in the form of opiates as did not want to be out of it in the morning/tomorrow. Would need some lab work at least for investigation considering concern. Not be doing of course a biopsy here in the emergency department. Can do screening head CT even for this extended duration of the headache. Certainly not much of an assessment for temporal arteritis but what is available here tonight. Head CT independently reviewed by me looks to be absent of acute abnormality. Labs with mildly elevated ESR though unlikely small business sales representative of giant cell/temporal arteritis as per concern. Also Ms. Zheng notes that her ESR is chronically elevated. I do review records confirming this. Reassuring only as that does have chronic/recurrent headaches. Concerning is that this 1 is atypical. We discussed various methods to alleviate her headache. Did try intranasal lidocaine mist. This did not change anything. Did receive a L normal saline and 30 mg of ketorolac initially. Also 10 mg of dexamethasone. Ultimately a ketamine infusion. Also still with her headache. I feel like it might have been a little less. Radiology over-read of CT head below. Indication: Headache. Technique: CT of the brain was performed without intravenous contrast. Comparison: None relevant available at this institution. Findings: No acute blurring of the leonard-white differentiation. There is no intracranial hemorrhage. Nonspecific empty sella morphology. The ventricles are proportionate to the cerebral sulci. The 4th ventricle is midline. Basal cisterns appear patent. No abnormal extra-axial fluid collection identified. There is no intracranial mass, mass effect or midline shift identified. No depressed calvarial fracture. Impression: 1. No acute intracranial process. 2. Stable nonspecific empty sella morphology. See patient discharge plan for further discussion Focus on hydration. Try to get quality and regular sleep. I do hope you feel much better in the morning. Otherwise I would call to your primary care provider/clinic to get next steps in follow-up. Request might mean appointment with surgery. Return for marked increase in headache, repeated vomiting, worsening loss of vision, new and focal weakness. Lab Data Lab results reviewed: Yes I reviewed the patient's lab results Labs: Lab Results 12/06/24 Range/Units 20:25 WBC 8.57 (4.50-11.00) K/uL RBC 4.75 (4.00-5.20) m/uL Hgb 12.5 (12.0-16.0) gm/dL Hct 40.4 (33.0-51.0) % MCV 85 (80-100) fL MCH 26 (26-34) pg MCHC 31 L (32-36) gm/dL RDW Coeff of Luis 15.7 H (11.5-15.5) % Plt Count 268 (140-440) K/uL Neut % (Auto) 65.5 (42.0-72.0) % Lymph % (Auto) 25.2 (20-44) % [place] % (Auto) 6.8 (0.0-11.0) % Eos % (Auto) 2.3 (0.0-7.0) % Baso % (Auto) 0.2 (0.0-3.0) % Neut # (Auto) 5.61 (1.7-7.0) K/uL Lymph # (Auto) 2.16 (0.90-2.90) K/uL [place] # (Auto) 0.60 (0.00-0.90) K/UL Eos # (Auto) 0.20 (0.00-0.50) K/uL Baso # (Auto) 0.02 (0.00-0.30) K/uL Abs Immat Gran (auto) 0.00 (0.00-0.30) K/uL Imm/Tot Granulo (auto) 0.0 % ESR 34 H (2-20) mm/hr Sodium 140 (135-149) mmol/L Potassium 4.1 (3.6-5.1) mmol/L Chloride 105 (96-114) mmol/L Carbon Dioxide 29 (20-32) mmol/L Anion Gap 6 L (7-15) mEq/L BUN 17 (7-30) mg/dL Creatinine 0.7 (0.5-1.5) mg/dL Estimated Creat Clear 91.60 Estimated GFR 102 ml/min Glucose 83 (60-115) mg/dL Calcium 9.3 (8.4-10.6) mg/dL Total Bilirubin 0.3 (0.1-1.5) mg/dL Direct Bilirubin 0.2 (0.0-0.5) mg/dL AST 23 (12-35) U/L ALT 24 (4-35) U/L Alkaline Phosphatase 88 (40-150) U/L Total Creatine Kinase 54 (41-117) U/L C-Reactive Protein 1.1 H (0.5-1.0) mg/dL Total Protein 7.7 (6.0-8.3) g/dL Albumin 4.1 (3.3-5.0) g/dL Discharge Plan Discharge Clinical Impression: Left temporal headache Patient Disposition: Home w/ Parent or Adult Condition: Stable Additional Instructions: Focus on hydration. Try to get quality and regular sleep. I do hope you feel much better in the morning. Otherwise I would call to your primary care provider/clinic to get next steps in follow-up. Request might mean appointment with surgery. Return for marked increase in headache, repeated vomiting, worsening loss of vision, new and focal weakness. Prescriptions: No Action lorazepam 0.5 mg tablet PO prazosin 2 mg capsule 2 mg PO BID bupropion HCl 150 mg tablet extended release 24 hr 150 mg PO DAILY pregabalin 150 mg capsule PO DAILY Ozempic 2 mg/dose (8 mg/3 mL) pen injector subcut acetaminophen 500 mg tablet 500 mg PO Q6H lisinopril 2.5 mg tablet 2.5 mg PO DAILY omeprazole 40 mg capsule,delayed release(/EC) 40 mg PO DAILY Skyrizi 150 mg/mL pen injector 150 mg subcut Q12W epinephrine 0.3 mg/0.3 mL auto-injector 0.3 mg IM .each time PRN ibuprofen 800 mg tablet 800 mg PO Q8H PRN gabapentin 600 mg tablet 900 mg PO QHS loratadine 10 mg tablet 10 mg PO Q24H triamcinolone acetonide 0.1 % cream topical furosemide [Lasix] 40 mg tablet 40 mg PO DAILY Qty: 7 2RF cholecalciferol (vitamin D3) 50 mcg (2,000 unit) tablet 50 mcg PO DAILY Follow Up/Referrals: Michelle Mohan PAFoxC [Primary Care Provider] - Stand Alone Forms: [facility] Info Instructions
--- NOTE | 2024-12-06 20:28 | CRLHL7_ITS ---
For Patients: As a result of the Century Cures Act, medical imaging exams and procedure reports are released immediately into your electronic medical record. You may view this report before your referring provider. If you have questions, please contact your health care provider. Indication: Headache. Technique: CT of the brain was performed without intravenous contrast. Comparison: None relevant available at this institution. Findings: No acute blurring of the leonard-white differentiation. There is no intracranial hemorrhage. Nonspecific empty sella morphology. The ventricles are proportionate to the cerebral sulci. The 4th ventricle is midline. Basal cisterns appear patent. No abnormal extra-axial fluid collection identified. There is no intracranial mass, mass effect or midline shift identified. No depressed calvarial fracture. Impression: 1. No acute intracranial process. 2. Stable nonspecific empty sella morphology. Please note that all CT scans at this facility use dose modulation, iterative reconstruction, and/or weight-based dosing when appropriate to reduce radiation dose to as low as reasonably achievable. Dictated by William Leyva MD @ 12/06/2024 9:22:47 PM (Electronically Signed)
[2024-12-06 20:42] LABS: Basophils Absolute Auto 0.02 K/uL (0.00-0.30); Basophils Percent Auto 0.2 % (0.0-3.0); Eosinophils Percent Auto 2.3 % (0.0-7.0); Hematocrit 40.4 % (33.0-51.0); Hemoglobin* 12.5 gm/dL (12.0-16.0); Lymphocytes Absolute Auto 2.16 K/uL (0.90-2.90); Lymphocytes Percent Auto 25.2 % (20-44); Mean Corpuscular HGB Conc 31 gm/dL (32-36); Mean Corpuscular Hemoglobin 26 pg (26-34); Mean Corpuscular Volume 85 fL (80-100); Monocytes Percent Auto 6.8 % (0.0-11.0); Neutrophils Absolute Auto 5.61 K/uL (1.7-7.0); Neutrophils Percent Auto 65.5 % (42.0-72.0); Platelet Count* 268 K/uL (140-440); RDW Coefficient of Variation % 15.7 % (11.5-15.5); Red Blood Count 4.75 m/uL (4.00-5.20); White Blood Count* 8.57 K/uL (4.50-11.00)
--- OUTSIDE RECORDS SUMMARY | 2024-12-06 20:49 | XMS_ITS | Referral Summary ---
Author Organization [place] Address [address] [place] [address]. [place] [address] Support Name Relationship Address Phone Reyes Zheng Personal Relationship [address] [place] [address] Salas Norm Personal Relationship Unknown [phone] Care Team Providers Care Poleyard Supervisor Name Role Phone Clinic, [facility] Primary [...] on file Legal Sex Female 3:10 AM DIRECTOR OF SOFTWARE ENGINEERING Gender Identity Not on file Sexual Orientation Not on file Last Filed Vital Signs Vital Sign Reading Time Taken Comments Blood Pressure 170/100 03/17/2024 2:38 PM CDT Pulse 78 03/17/2024 2:38 PM CDT Temperature - - Respiratory Rate 18 11/02/2012 1:28 AM DIRECTOR OF SOFTWARE ENGINEERING Oxygen Saturation 95% 03/02/2018 11: 42 AM [...] ABDOMEN PELVIS W/ CONTRAST 11/02/2012 12:51 AM DIRECTOR OF SOFTWARE ENGINEERING COMPREHENSIVE METABOLIC PANEL STAT 11/01/2012 9:40 PM DIRECTOR OF SOFTWARE ENGINEERING from Last 3 Months or Most Recently Relevant to Health Maintenance Results * CT Chest abdomen pelvis w contrast* (11/02/2012 12:51 AM DIRECTOR OF SOFTWARE ENGINEERING) Anatomical Region Laterality Modality Abdomen, Chest, Pelvis, Hip Comp uted Tomography 11/02/2012 12:5 1 AM DIRECTOR OF SOFTWARE ENGINEERING Impressions 11/02/2012 3:41 PM DIRECTOR OF SOFTWARE ENGINEERING IMPRESSION: 1. No evidence of dissection or other acute abnormality. 2. Right breast mass measures 2.8 cm. Diagnostic mammography and ultrasound recommended. 3. Agree with preliminary report provided by Dr. Guzman. DOMINIK SHEPARD MD Narrative 11/02/2012 3:41 PM DIRECTOR OF SOFTWARE ENGINEERING CT CHEST, ABDOMEN AND PELVIS WITH CONTRAST [...] * Comprehensive metabolic panel (11/01/2012 9:40 PM DIRECTOR OF SOFTWARE ENGINEERING) Sodium 136 133 - 144 mmol/L [facility] Potassium 3.5 3.4 - 5.3 mmol/L [facility] Chloride 101 94 - 109 mmol/L [facility] Carbon Dioxide 26 20 - 32 mmol/L [facility] Anion Gap 8 6 - 17 mmol/L [facility] Glucose 99 60 - 99 mg/dL [facility] Urea Nitrogen 11 5 - 24 mg/dL [facility] Creatinine 0.77 0.52 - 1.04 mg/dL [facility] GFR Estimate 82 >60 mL/min/1.7 m2 [facility] GFR Estimate If Black >90 >60 mL/min/1.7 m2 [facility] Calcium 9.4 8.5 - 10.4 mg/dL [facility] Bilirubin Total 0.4 0.2 - 1.3 mg/dL [facility] Albumin 4.4 3.9 - 5.1 g/dL [facility] Protein Total 7.7 6.8 - 8.8 g/dL [facility] Alkaline Phosphatase 124 40 - 150 U/L [facility] ALT 38 0 - 50 U/L [facility] AST 27 0 - 45 U/L [facility] Blood specimen (specimen) 11/01/2012 9:40 PM DIRECTOR OF SOFTWARE ENGINEERING 11/01/2012 10:42 PM DIRECTOR OF SOFTWARE ENGINEERING us Hima Keys MD LAB - BLOOD ORDERABLES Final Result Performing Organization Address City/State/[facility] Co de Phone Number [facility] [address] [place] [address], [facility] [phone] from Last 3 Months or Most Recently Relevant to Health Maintenance Insurance [facility] Care Teams Poleyard Supervisor Relationship Specialty Start Date End Date [facility], [address] [id number] PCP - General 11/01/12
--- OUTSIDE RECORDS SUMMARY | 2024-12-06 20:49 | XMS_ITS | Continuity of Care Document ---
Author Name NwHIN User [id number] llowed Address Unknown Organization Unknown Address Unknown Procedures FILTER APPLIED:Only known Procedures with Onset Date within the last 5 years Procedure Date Procedure Provider Darron contreras Information Status METABOLIC PANEL TOTAL CA (33457) Completed ROUTINE VENIPUNCTURE (05107) Completed ELECTROCARDIOGRAM TRACING (37159) Completed COMPLETE CBC W/AUTO DIFF WBC (20307) Completed EMERGENCY DEPT VISIT MOD MDM (80991) Completed ASSAY OF TROPONIN QUANT (36724) Completed COMPLETE CBC W/AUTO DIFF WBC (58414) Completed FIBRIN DEGRADATION QUANT (02148) Completed RBC SED RATE NONAUTOMATED (54566) Completed ASSAY OF TROPONIN QUANT (52034) Completed ASSAY OF NATRIURETIC PEPTIDE (82748) Completed COMPREHEN METABOLIC PANEL (42783) Completed X-RAY EXAM CHEST 2 VIEWS (90097) Completed ROUTINE VENIPUNCTURE (22868) Completed EMERGENCY DEPT VISIT MOD MDM (23137) Completed ELECTROCARDIOGRAM TRACING (91813) Completed Encounters FILTER APPLIED:Only known Encounters with Admission Date within the last 5 years Encounter Location Admission Discharge Billing Code Coat Check Attendant Manuel joseph Emergency Rashad Russell Emergency Cirilo Mendoza [facility]
--- OUTSIDE RECORDS SUMMARY | 2024-12-06 20:49 | XMS_ITS | Clinical Summary ---
Author Organization [facility] Address [place], [place] [address] Care Team Providers Care Stringing Machine Operator Name Role Phone Michelle Mohan Primary Care Provider [facility] [place] Unavailable [facility] [place] Unavailable [phone] Allergies Active Allergy Reactions Criticality Noted Date Comments Animal Dander Itching 10/29/2024 Mold Anaphylaxis High 10/29/2024 Paroxetine Other - Describe In Comment Field High 04/28/2008 Manic episode Perfume *Unknown 10/29/2024 Xmbyrwt-Ydm-Vmn Reductase Inhibitors Other - Describe In Comment Field 06/17/2021 Suicide thoughts Trazodone Other - Describe In Comment Field 07/05/2022 Suicidal ideation [place] Anaphylaxis High 08/29/2021 Medications EPINEPHrine (EPIPEN) 0.3 [...] 2 diabetes mellitus without complication, unspecified whether intermediate teacher insulin use (HC),HTN (hypertension) Take 1 Tablet (2.5 mg) by mouth once daily. 90 Tablet 2 5 3:40 PM TUB TENDER 06/01/20 24 Active semaglutide (Ozempic) 2 mg/dose (8 mg/3 mL) subcutaneous penIndications:Con trolled type 2 diabetes mellitus without complication, without long-term current use of insulin (HC) Inject 2 mg subcutaneous once weekly. 9 mL 4 5 3:45 PM TUB TENDER 06/16/20 24 Active pregabalin (LYRICA) 150 mg [...] 2 diabetes mellitus without complication, unspecified whether group home insulin use (HC) Dispense meter covered by pts insurance. 1 Each 09/16/20 24 Active blood sugar diagnostic (Blood Glucose Test) stripIndications:C ontrolled type 2 diabetes mellitus without complication, unspecified whether intermediate teacher insulin use (HC) Test 1-2 times per day. Dispense strips covered by pts insurance. 100 Each 09/17/20 24 Active risankizumab-rzaa (Skyrizi) 150 mg/mL subcutaneous penIndications:Pso riasis Inject the contents of 1 pre-filled pen (150 mg/mL) under the skin every 12 weeks. Rotate injection sites. 1 mL 4 10:02 AM TUB TENDER 09/23/20 Active Blood Pressure Monitor KitIndications:HTN (hypertension) Frequency of testing: daily 1 Each 10/06/20 Active lancetsIndications :Controlled type 2 diabetes mellitus without complication, unspecified whether intermediate teacher insulin use (HC) As directed. Test 2-3 [...] supply) 90 Tablet 2 4 3:30 PM TUB TENDER 10/13/20 24 Active prazosin (MINIPRESS) 2 mg capsule Take 2 (capsules) by mouth at bedtime 60 Capsule 3 5 3:40 PM TUB TENDER 10/13/20 24 Active buPROPion (Wellbutrin XL) 150 mg Extended-Release tablet Take 1 (tablet) by mouth daily 90 Tablet 1 10/13/20 24 Active Active Problems Problem Noted Date Diagnosed Date [id number] intermediate metabolizer 01/12/2023 Overview (01/12/2023): Caution: clopidogrel (Plavix) may be less effective for [id number] intermediate metabolizers. Guidelines can be found here: https://cpicpgx.org/guidelines/dzswdtaqp-cmc-hsplgzionha-and-hcd7g88/ Orthostatic hypotension 05/03/2022 Dysphagia 05/03/2022 Psoriasis 05/03/2022 [...] Type Department Care Team Description 11/28/2024 Telephone [facility] [address] [place] [address] Michelle Mohan PA Appointment Request (Sinus Infection ) 11/28/2024 Nurse Triage [facility] [address] [place] [address] Michelle Mohan PA Error-please disregard 11/28/2024 Telephone [facility] [address] [place] [address] Joanne Donnelly PA Appointment (Inappropriate appt, recommend pt be seen in ER per provider.) 11/27/2024 6:30 PM TUB TENDER Telemedicine [facility] [address] [place] [address] Ezequiel Clark PA Headache 11/27/2024 Travel 10/21/2024 2:00 PM TUB TENDER Procedure Only [facility] [address] [place] [address] Martha Del Real L Ac Acupuncture 10/20/2024 Travel 10/09/2024 1:00 PM TUB TENDER Procedure Only [facility] [address] [place] [address] Martha Del Real L Ac Acupuncture (Initial) 10/08/2024 Travel 10/06/2024 3:00 PM TUB TENDER Office Visit [facility] [address] [place] [address] Michelle Mohan PA Follow Up (Still has vertigo- ); Lab (Would like some labs done) 10/06/2024 Travel 09/30/2024 Telephone [facility] [address] [facility] [address] [place] [phone] Mickey Arnold MD Cardiology Appointment 09/23/2024 Telephone [facility] [address] [facility] [place] [address] Hadley Helm MD Medication Management 09/16/2024 8:50 AM CDT Telemedicine [facility] [address] [place] [address] Michelle Mohan PA Vertigo (X 5 weeks / wondering what blood sugars look like, would like glucometer); Concerns (Handicap sticker renewal ); Medication Management (omeprazole) 09/15/2024 Travel 09/12/2024 Refill [facility] [address] [place] [address] Michelle Mohan PA Refill Request (Prilosec) 09/08/2024 Refill [facility] [address] [place] [address] Michelle Mohan PA Refill Request (Vitamin D) [...] pur e alcohol) stopped 7 years ago [facility] Utilities Answer Date Recorded Do you [...] on file Legal Sex Female 5:25 AM TUB TENDER Gender Identity Not on file Sexual Orientation [...] Comments Blood Pressure 126/81 10/06/2024 3:24 PM TUB TENDER Pulse 102 10/06/2024 3:24 PM TUB TENDER Temperature 35.9 C (96.6 F) 04/17/2024 12:54 PM CDT Respiratory Rate 18 04/17/2024 12:54 PM CDT Oxygen Saturation 96% 05/30/2024 10:08 AM CDT Inhaled Oxygen Concentration - - Weight 124.3 kg (274 lb) 10/06/2024 3:24 PM TUB TENDER Height 172.7 cm (5' 8) 04/17/2024 12:54 [...] booster 08/25/2032 08/25/2022, 11/2004 (Completed outside of [facility]) HIV for age 15-65 Completed 12/07/2015, , 02/15/2008 Hepatitis C screening for ag e 18-79 Completed 12/07/2015, 08/19/2014 Tdap Completed 08/25/2022 Influenza for age 50-64 Completed 10/06/20, 11/11/2021, 12/07/2015, Additional history exists Procedures Procedure Name Priority Date/Time Associated Diagnosis Comments ACUPUNCTURE PLAN OF CARE Routine 10/21/2024 2:04 PM TUB TENDER Vertigo Other chronic pain FERRITIN Routine 10/06/2024 4:04 PM TUB TENDER Anemia, unspecified type RLS (restless legs syndrome) LIPASE Routine 10/06/2024 4:04 PM TUB TENDER Abdominal pain, epigastric BASIC METABOLIC PANEL Routine 10/06/2024 4:04 PM TUB TENDER HTN (hypertension) VITAMIN B12 Routine 10/06/2024 4:04 PM TUB TENDER Anemia, unspecified type CBC WITH AUTO DIFFERENTIAL Routine 10/06/2024 4:04 PM TUB TENDER Anemia, unspecified type HEMOGLOBIN A1C Routine 10/06/2024 4:04 PM TUB TENDER Controlled type 2 diabetes mellitus without complication, unspecified whether group home insulin use (HC) LIPID PANEL Today 04/17/2024 12:58 PM CDT SCAN-COLONOSCOPY 03/28/2017 12:0 0 AM CDT ANTI HIV 1/2 Routine 12/07/2015 4:24 PM TUB TENDER Screen for STD (sexually transmitted disease) ANTI HCV Routine 12/07/2015 4:24 PM TUB TENDER Screen for STD (sexually transmitted disease) XR FFDM MAMMO UNI ADDL VIEWS RIGHT (IA) Routine 11/28/2012 9:48 AM TUB TENDER Fibroadenoma of breast from Last 3 Months or Most Recently Relevant to Health Maintenance Results * (ABNORMAL) HEMOGLOBIN A1C (10/06/2024 4:04 PM TUB TENDER) HEMOGLOBIN A1C 6.0(H) <5.7 % of total Hgb [facility] Comment: For someone without known diabetes, [...] BLOOD SPECIMEN / Unknown 10/06/2024 4:04 PM TUB TENDER 10/06/2024 4:06 PM TUB TENDER Narrative [facility] - 10/07/2024 3:56 AM TUB TENDER FASTING:NO FASTING: NO Michelle LINARES CHEMISTRY Final R esult [facility] [address] [place] [address], [facility] [address] [place] [address] * (ABNORMAL) CBC AND DIFFERENTIAL (10/06/2024 4:04 PM TUB TENDER) [facility] WHITE BLOOD CELL COUNT 6.3 3.8 - [...] BLOOD SPECIMEN / Unknown 10/06/2024 4:04 PM TUB TENDER 10/06/2024 4:06 PM TUB TENDER Narrative [facility] - 10/07/2024 3:23 AM TUB TENDER FASTING:NO FASTING: NO Michelle LINARES HEMATOLOGY Final R esult Performing Organization Address [facility]/ZIP Co de Phone Number [facility] [address] [place] [address], [place] [phone] [facility] [address] [place] [address] * LIPASE (10/06/2024 4:04 PM TUB TENDER) LIPASE 46 7 - 60 U/L [facility] Blood BLOOD SPECIMEN / Unknown 10/06/2024 4:04 PM TUB TENDER 10/06/2024 4:06 PM TUB TENDER Narrative [facility] - 10/07/2024 11:46 AM TUB TENDER FASTING:NO FASTING: NO Michelle LINARES CHEMISTRY Final R esult Performing Organization Address [facility] de Phone Number [facility] [address] [place] [address], [place] [phone] [facility] [address] [facility] [place] [address] * (ABNORMAL) FERRITIN (10/06/2024 4:04 PM TUB TENDER) FERRITIN 14(L) 16 - 232 ng/mL [facility] Blood BLOOD SPECIMEN / Unknown 10/06/2024 4:04 PM TUB TENDER 10/06/2024 4:06 PM TUB TENDER Narrative [facility] - 10/07/2024 6:06 AM TUB TENDER FASTING:NO FASTING: NO Michelle LINARES CHEMISTRY Final R esult [facility] [place] [address], [address] [address] * VITAMIN B12 (10/06/2024 4:04 PM TUB TENDER) [facility] VITAMIN B12 384 200 - 1,100 pg/mL [facility] Comment: Please Note: Although the [...] BLOOD SPECIMEN / Unknown 10/06/2024 4:04 PM TUB TENDER 10/06/2024 4:06 PM TUB TENDER Narrative [facility] - 10/07/2024 6:06 AM TUB TENDER FASTING:NO FASTING: NO Michelle LINARES CHEMISTRY Final R esult [facility] [address] [address], [address] [address] * BASIC METABOLIC PANEL (10/06/2024 4:04 PM TUB TENDER) [facility] GLUCOSE 118 65 - 139 mg/dL [facility] Comment: Non-fasting reference interval UREA NITROGEN (BUN) 12 7 - 25 mg/dL [facility] CREATININE 0.87 0.50 - 1.03 mg/dL [facility] EGFR 79 > OR = 60 mL/min/1. 73m2 [facility] BUN/CREATININE RATIO SEE NOTE: (calc) [facility] Comment: Not Reported: BUN and Creatinine are within reference range. SODIUM 142 135 - 146 mmol/L [facility] POTASSIUM 4.3 3.5 - 5.3 mmol/L [facility] CHLORIDE 107 98 - 110 mmol/L [facility] CARBON DIOXIDE 25 20 - 32 mmol/L [facility] ELECTROLYTE BALANCE 10 7 - 17 mmol/L (calc) [facility] CALCIUM 9.1 8.6 - 10.4 mg/dL [facility] Blood BLOOD SPECIMEN / Unknown 10/06/2024 4:04 PM TUB TENDER 10/06/2024 4:06 PM TUB TENDER Narrative [facility] - 10/07/2024 11:46 AM TUB TENDER FASTING:NO FASTING: NO us Michelle LINARES CHEMISTRY Final R esult [facility] [address] [place] [address], [facility] [address] [place] [address] * (ABNORMAL) LIPID PANEL (04/17/2024 12:58 PM CDT) [facility] CHOLESTEROL,TOTAL 197 100 - 199 mg/dL 04/17/2024 1:57 PM CDT [facility] Comment: Cholesterol, Total Reference Ranges Desirable <200 mg/dL Borderline 200-239 mg/dL High >=240 mg/dL TRIGLYCERIDES 102 <150 mg/dL 04/17/2024 1:57 PM CDT [facility] HDL CHOLESTEROL 48 >40 mg/dL 1:57 PM CDT [facility] NON-HDL CHOLESTEROL 149(H) <145 mg/dl 04/17/2024 1:57 PM CDT [facility] CHOL/HDL RATIO 4.10 <4.50 04/17/2024 1:57 PM CDT [facility] LDL CHOLESTEROL 129 <=130 mg/dL 04/17/2024 1:57 PM CDT [facility] VLDL CHOLESTEROL 20 <=30 mg/dL 04/17/2024 1:57 PM CDT [facility] PROVIDER ORDERED STATUS RANDOM 04/17/2024 1:57 PM CDT [facility] Blood BLOOD SPECIMEN / Unknown Butterfly / Unknown 04/17/2024 12:58 PM CDT 04/17/2024 1:31 PM CDT us Tiffanie Coughlin NP CHEMISTRY Fin al Result Performing Organization Address [facility]/ZIP Co de Phone Number [facility] [address] [place] [address], * SCAN-COLONOSCOPY (03/28/2017 12:00 AM CDT) us Scanner OTHER Final Result * ANTI HCV (12/07/2015 4:24 PM TUB TENDER) HEPATITIS C ANTIBODY Non-Reacti ve Non-Reacti ve 12/08/2015 1:27 PM TUB TENDER [facility] Blood specimen (specimen) BLOOD SPECIMEN / Unknown Venipuncture / Unknown 12/07/2015 4:24 PM TUB TENDER 12/07/2015 4:24 PM TUB TENDER Narrative [facility] - 12/08/2015 1:27 PM TUB TENDER Antibodies to HCV not detected; does not exclude the possibility of exposure to HCV. us Michelle LINARES SEND OUTS Final R esult Performing Organization Address City/[facility]/ZIP Co de Phone Number [facility] [address] [place] [address], * ANTI HIV 1/2 (12/07/2015 4:24 PM TUB TENDER) HIV-1/HIV-2 ANTIBODY Non-Reacti ve Non-Reacti ve 12/08/2015 1:21 PM TUB TENDER [facility] Blood specimen (specimen) BLOOD SPECIMEN / Unknown Venipuncture / Unknown 12/07/2015 4:24 PM TUB TENDER 12/07/2015 4:24 PM TUB TENDER Narrative [facility] - 12/08/2015 1:21 PM TUB TENDER HIV-1 p24 and HIV-1/HIV-2 Ab not detected us Michelle LINARES SEND OUTS Final R esult [facility] [address] [place] [address], [place] * XR FFDM MAMMO UNI ADDL VIEWS RIGHT (11/28/2012 9:48 AM TUB TENDER) Anatomical Region Laterality Modality BREASTS, Breast Right Right Mammograph y Narrative 11/29/2012 6:42 AM TUB TENDER RIGHT BREAST DIGITAL DIAGNOSTIC MAMMOGRAM WITH ADDITIONAL VIEWS, 11/28/2012 CLINICAL HISTORY: 42-year-old woman who had an ultrasound guided core biopsy of a 2.9 cm mass in the upper outer quadrant of the RIGHT mid breast at the 10 o'clock position at the [facility] on 11/08/2012 which yielded a fibroadenoma. Because [...] at the 10 o'clock position at the [facility] on 11/08/2012which yielded a fibroadenoma. Because of [...] Maintenance Insurance MEDICARE PART A HB ONLY [facility] MEDICARE [address] [place] [id number] Advance Directives * Full Code (Latest Code Status on File) Date Activated Date Inactivated Comments 04/17/2024 12:56 PM 04/17/2024 6:32 PM Question Answer Comments Code Status Discussion: Reviewed Preferences * Full Code Date Activated Date Inactivated Comments 10/21/2013 9:55 PM 10/22/2013 3:18 PM * Full Code Date Activated Date Inactivated Comments 12/11/2012 9:39 AM 12/11/2012 4:36 PM Care Teams Stringing Machine Operator Relationship Specialty Start Date End Date [place] [address] PCP - General Physician Visual Aid Expert 02/14/21 [address] [place] [address] 05/31/22 [facility] [address] [place] [address] 09/05/23
--- OUTSIDE RECORDS SUMMARY | 2024-12-06 20:49 | XMS_ITS | Clinical Summary ---
Author Organization [place] Address [address] [place] [address]. [place] [address] Support Name Relationship Address Phone Reyes Zheng Personal Relationship [address] [place] [address] Salas Norm Personal Relationship Unknown [phone] Care Team Providers Care Retail Sales Merchandiser Name Role Phone Clinic, [facility] Primary [...] on file Legal Sex Female 3:10 AM MANAGER BAKERY Gender Identity Not on file Sexual Orientation Not on file Last Filed Vital Signs Vital Sign Reading Time Taken Comments Blood Pressure 170/100 03/17/2024 2:38 PM CDT Pulse 78 03/17/2024 2:38 PM CDT Temperature - - Respiratory Rate 18 11/02/2012 1:28 AM MANAGER BAKERY Oxygen Saturation 95% 03/02/2018 11: 42 AM [...] ABDOMEN PELVIS W/ CONTRAST 11/02/2012 12:51 AM MANAGER BAKERY COMPREHENSIVE METABOLIC PANEL STAT 11/01/2012 9:40 PM MANAGER BAKERY from Last 3 Months or Most Recently Relevant to Health Maintenance Results * CT Chest abdomen pelvis w contrast* (11/02/2012 12:51 AM MANAGER BAKERY) Anatomical Region Laterality Modality Abdomen, Chest, Pelvis, Hip Comp uted Tomography 11/02/2012 12:5 1 AM MANAGER BAKERY Impressions 11/02/2012 3:41 PM MANAGER BAKERY IMPRESSION: 1. No evidence of dissection or other acute abnormality. 2. Right breast mass measures 2.8 cm. Diagnostic mammography and ultrasound recommended. 3. Agree with preliminary report provided by Dr. Guzman. DOMINIK SHEPARD MD Narrative 11/02/2012 3:[address] CHEST, ABDOMEN AND PELVIS WITH CONTRAST [...] * Comprehensive metabolic panel (11/01/2012 9:40 PM MANAGER BAKERY) Sodium 136 133 - 144 mmol/L [facility] Potassium 3.5 3.4 - 5.3 mmol/L [facility] Chloride 101 94 - 109 mmol/L [facility] Carbon Dioxide 26 20 - 32 mmol/L [facility] Anion Gap 8 6 - 17 mmol/L [facility] Glucose 99 60 - 99 mg/dL [facility] Urea Nitrogen 11 5 - 24 mg/dL [facility] Creatinine 0.77 0.52 - 1.04 mg/dL [facility] GFR Estimate 82 >60 mL/min/1.7 m2 [facility] GFR Estimate If Black >90 >60 mL/min/1.7 m2 [facility] Calcium 9.4 8.5 - 10.4 mg/dL [facility] Bilirubin Total 0.4 0.2 - 1.3 mg/dL [facility] Albumin 4.4 3.9 - 5.1 g/dL [facility] Protein Total 7.7 6.8 - 8.8 g/dL [facility] Alkaline Phosphatase 124 40 - 150 U/L [facility] ALT 38 0 - 50 U/L [facility] AST 27 0 - 45 U/L [facility] Blood specimen (specimen) 11/01/2012 9:40 PM MANAGER BAKERY 11/01/2012 10:42 PM MANAGER BAKERY us Hima Keys MD LAB - BLOOD ORDERABLES Final Result [facility] [place] [address], [facility] [phone] from Last 3 Months or Most Recently Relevant to Health Maintenance Insurance [facility] Care Teams Retail Sales Merchandiser Relationship Specialty Start Date End Date [address] [address] PCP - General 11/01/12
[2024-12-06 20:59] LABS: Slide Review Reflex No
[2024-12-06 21:06] LABS: Albumin* 4.1 g/dL (3.3-5.0); Chloride* 105 mmol/L (96-114); Potassium* 4.1 mmol/L (3.6-5.1); Sodium* 140 mmol/L (135-149)
[2024-12-06 21:08] LABS: Creatinine* 0.7 mg/dL (0.5-1.5); Estimated Glomerular Filt Rate 102 ml/min
[2024-12-06 21:09] LABS: Alkaline Phosphatase* 88 U/L (40-150); Anion Gap 6 mEq/L (7-15); Aspartate Amino Transferase* 23 U/L (12-35); Bilirubin Direct* 0.2 mg/dL (0.0-0.5); Bilirubin Total* 0.3 mg/dL (0.1-1.5); Blood Urea Nitrogen* 17 mg/dL (7-30); Calcium* 9.3 mg/dL (8.4-10.6); Carbon Dioxide* 29 mmol/L (20-32); Creatine Kinase* 54 U/L (41-117); Glucose* 83 mg/dL (60-115); Total Protein* 7.7 g/dL (6.0-8.3)
[2024-12-06 21:10] LABS: Alanine Aminotransferase* 24 U/L (4-35)
[2024-12-06 21:12] LABS: C Reactive Protein* 1.1 mg/dL (0.5-1.0)
[2024-12-06] MEDS: KETOROLAC 30 MG/ML inj IVP (21:37)
[2024-12-06] MEDS: 0.9 % SODIUM CHLORIDE 1000 ml 1,000 ML IV (21:37)
[2024-12-06 21:38] LABS: Erythrocyte SedimentationRate* 34 mm/hr (2-20)
[2024-12-06 22:31] VITALS: RESP 16; O2SAT 4
[2024-12-06] MEDS: dexAMETHasone 10 MG/ML inj IVP (23:52)
[2024-12-06] MEDS: KETAMINE 50 MG/0.5 ML 20 MG in 0.9 % SODIUM CHLORIDE 100 ml 100 ML 200.4 MG IVPB (23:53)
== END 2024-12-07 00:52 | disposition home or self-care (01) ==
PROVIDERS: Emergency Provider Family Medicine; PCP Physician Assistant Medical
DX: G44.89 Other headache syndrome (principal)
CPT/HCPCS: 36415; 70450; 80048; 80076; 82550; 85025; 85651; 86140; 96365; 96375; 99284; J1100; J1885; J3490; J7030

== ENCOUNTER 2025-01-06 10:32 | Day surgery (SDC) | payer MEDICAID, SELFPAY ==
--- OUTSIDE RECORDS SUMMARY | 2025-01-06 10:36 | XMS_ITS | Clinical Summary ---
Author Organization [employer] [facility] Address [place], [place] [address] Care Team Providers Care Launch Engineer Name Role Phone Michelle Mohan Primary Care Provider [facility] [place] Unavailable [facility] [place] Unavailable Allergies Active Allergy Reactions Criticality Noted Date Comments Animal Dander Itching 10/29/2024 Mold Anaphylaxis High 10/29/2024 Paroxetine Other - Describe In Comment Field High 04/28/2008 Manic episode Perfume *Unknown 10/29/2024 Vmnnxup-Jzw-Gdy Reductase Inhibitors Other - Describe In Comment Field 06/17/2021 Suicide thoughts Trazodone Other - Describe In Comment Field 07/05/2022 Suicidal ideation Wasta Anaphylaxis High 08/29/2021 Medications EPINEPHrine (EPIPEN) 0.3 mg/0.3 mL auto-injectorIndi cations:Nut allergy Inject 0.3 mg (1 pen) intramuscular each time if needed for Allergic Reaction. 2 Each 3 06/19/20 22 Active aspirin-acetamino phen-caffeine (Excedrin Migraine) 250-250-65 mgIndications:Hea dache syndrome Take 2 Tablets by mouth one time if needed for Headache. Can repeat same dose later in day if needed. Max acetaminophen dose: 4000mg in 24 hrs. 60 Tablet 3 11/09/20 23 Active ketoconazole 2% shampoo (NIZORAL) 2 % shampooIndication s:Scalp psoriasis Lather on damp scalp, leave on for 5min, then rinse with water 1-3 times per week. 120 mL 5 4 10:12 PM CDT 03/26/20 24 Active fexofenadine (TIEN) 180 mg tabletIndications :Allergic rhinitis due to pollen, unspecified seasonality Take 180 mg by mouth once daily. Do not crush or chew. 90 Tablet 3 03/26/20 24 Active pseudoephedrine (SUDAFED) 30 mg tablet Take 30 mg by mouth every 6 hours if needed for Nasal Congestion. Active lisinopriL (PRINIVIL; ZESTRIL) 2.5 mg tabletIndications :Controlled type 2 diabetes mellitus without complication, unspecified whether mcc insulin use (HC),HTN (hypertension) Take 1 Tablet (2.5 mg) by mouth once daily. 90 Tablet 2 5 3:40 PM LINE PILOT 06/01/20 24 Active semaglutide (Ozempic) 2 mg/dose (8 mg/3 mL) subcutaneous penIndications:Co ntrolled type 2 diabetes mellitus without complication, without long-term current use of insulin (HC) Inject 2 mg subcutaneous once weekly. 9 mL 4 5 3:45 PM LINE PILOT 06/16/20 24 Active cholecalciferol, Vitamin D3, 2,000 unit tabletIndications :Vitamin D deficiency TAKE ONE TABLET BY MOUTH ONCE DAILY 90 Tablet 1 5 1:40 PM LINE PILOT 09/09/20 24 Active omeprazole (PRILOSEC) 40 mg Delayed-Release capsuleIndication s:Gastroesophagea l reflux disease, unspecified whether esophagitis present Take 1 Capsule (40 mg) by mouth once daily before a meal. 90 Capsule 3 5 1:40 PM LINE PILOT 09/16/20 24 Active blood-glucose meterIndications: Controlled type 2 diabetes mellitus without complication, unspecified whether mcc insulin use (HC) Dispense meter covered by pts insurance. 1 Each 09/16/20 24 Active blood sugar diagnostic (Blood Glucose Test) stripIndications: Controlled type 2 diabetes mellitus without complication, unspecified whether mcc insulin use (HC) Test 1-2 times per day. Dispense strips covered by pts insurance. 100 Each 12 09/17/20 24 Active risankizumab-rzaa (Skyrizi) 150 mg/mL subcutaneous penIndications:Ps oriasis Inject the contents of 1 pre-filled pen (150 mg/mL) under the skin every 12 weeks. Rotate injection sites. 1 mL 4 10:02 AM LINE PILOT 09/23/20 24 Active Blood Pressure Monitor KitIndications:HT N (hypertension) Frequency of testing: daily 1 Each 10/06/20 24 Active lancetsIndication s:Controlled type 2 diabetes mellitus without complication, unspecified whether supervisor intermediates insulin use (HC) As directed. Test 2-3 times per day. 100 Each 12 10/06/20 24 Active Walker - 4 wheelsIndications :Muscular deconditioning,PO TS (postural orthostatic tachycardia syndrome),Primary osteoarthritis of right hip,Subluxation of patellofemoral joint, unspecified laterality, sequela For home use. Length of need: 99 1 Each 10/06/20 24 Active LORazepam (Ativan) 0.5 mg tab Take 1 to 4 tablets (0.5-2 mg) by mouth daily as needed for panic (30 day supply) 90 Tablet 2 4 3:30 PM LINE PILOT 10/13/20 24 Active prazosin (MINIPRESS) 2 mg capsule Take 2 (capsules) by mouth at bedtime 60 Capsule 3 5 9:09 AM LINE PILOT 10/13/20 24 Active buPROPion (Wellbutrin XL) 150 mg Extended-Release tablet Take 1 (tablet) by mouth daily 90 Tablet 1 10/13/20 24 Active triamcinolone 0.1 % ointmentIndicatio ns:Inverse psoriasis Apply topically to affected area(s) 2 times daily if needed (itching). Alternate use between ointment and cream each week. 30 g 3 5 4:17 PM LINE PILOT 12/22/19 25 Active triamcinolone (ARISTOCORT; KENALOG) 0.1 % creamIndications: Inverse psoriasis Apply topically to affected area(s) 3 times daily if needed (itching). Alternate use between ointment and cream each week. 28.4 g 3 5 4:17 PM LINE PILOT 12/22/19 25 Active clobetasol (TEMOVATE) 0.05 % creamIndications: Psoriasis Apply topically to affected area(s) two times daily. 12/22/19 25 Active ibuprofen (ADVIL; MOTRIN) 800 mg tabletIndications :Arthralgia, unspecified joint Take 1 Tablet (800 mg) by mouth three times daily with meals. 90 Tablet 3 5 4:17 PM LINE PILOT 12/22/19 25 Active pregabalin (LYRICA) 75 mg capsuleIndication s:Nerve pain Take 1 Capsule (75 mg) by mouth once daily. Take in am. 90 Capsule 1 5 4:17 PM LINE PILOT 12/22/19 25 Active pregabalin (LYRICA) 150 mg capsuleIndication s:RLS (restless legs syndrome) Take 1 capsule (150 mg total) by mouth at bedtime. Take two hours prior to symptom onset 30 Capsule 3 5 1:42 PM LINE PILOT 12/26/19 25 Active pregabalin (LYRICA) 150 mg capsuleIndication s:RLS (restless legs syndrome) TAKE ONE CAPSULE BY MOUTH EVERY DAY AT BEDTIME - TAKE 2 HOURS PRIOR TO SYMPTOM ONSET 30 Capsule 3 12/29/19 25 Active LORazepam (Ativan) 0.5 mg tab Take 1 to 4 tablets (0.5-2 mg) by mouth daily as needed for panic (30 day supply) 90 Tablet 2 01/05/20 25 Active prazosin (MINIPRESS) 2 mg capsule Take 2 capsules by mouth daily at bedtime 60 Capsule 3 01/05/20 25 Active buPROPion (Wellbutrin XL) 150 mg Extended-Release tablet Take 1 tablet by mouth daily 90 Tablet 1 01/05/20 25 Active clobetasol cream 0.05% (TEMOVATE) 0.05 % creamIndications: Psoriasis Apply topically to affected area(s) two times daily. 60 g 3 09/04/20 22 025 Discontin ued(Reord er (E-cancel not sent)) ibuprofen (ADVIL; MOTRIN) 800 mg tabletIndications :Arthralgia, unspecified joint Take 1 Tablet (800 mg) by mouth three times daily with meals. 90 Tablet 3 4 12:51 PM CDT 11/09/20 23 025 Discontin ued(Reord er (E-cancel not sent)) triamcinolone 0.1 % ointmentIndicatio ns:Inverse psoriasis Apply topically to affected area(s) two times daily. 454 g 1 12/13/19 24 025 Discontin ued(Reord er (E-cancel not sent)) triamcinolone (ARISTOCORT; KENALOG) 0.1 % creamIndications: Inverse psoriasis Apply topically to affected area(s) three times daily. Alternate use between ointment and cream each week. 80 g 4 10:35 PM CDT 03/26/20 24 025 Discontin ued(Reord er (E-cancel not sent)) pregabalin (LYRICA) 150 mg capsuleIndication s:RLS (restless legs syndrome) Take 1 capsule (150 mg total) by mouth at bedtime. Take two hours prior to symptom onset 30 Capsule 3 08/04/20 24 025 Discontin ued(Reord er (E-cancel not sent)) pregabalin (LYRICA) 150 mg capsuleIndication s:RLS (restless legs syndrome) TAKE ONE CAPSULE BY MOUTH EVERY DAY AT BEDTIME - TAKE 2 HOURS PRIOR TO SYMPTOM ONSET 30 Capsule 3 12/29/19 25 025 Discontin ued(Reord er (E-cancel not sent)) Active Problems Problem Noted Date Diagnosed Date Pulmonary hypertension 12/22/2024 Major depressive disorder, s shanta episode, severe without psychotic features 12/22/2024 [id number] intermediate metabolizer 01/12/2023 Overview (01/12/2023): Caution: clopidogrel (Plavix) may be less effective for [id number] intermediate metabolizers. Guidelines can be found here: https://cpicpgx.org/guidelines/kaeesiroe-eum-dopwqasgduz-and-ksp3j76/ Orthostatic hypotension 05/03/2022 Dysphagia 05/03/2022 Psoriasis 05/03/2022 [...] Encounters Date Type Department Care Team Description 12/31/2024 9:00 AM LINE PILOT Office Visit [facility] [address] [place], [place] [phone] Chelsy Barker MD Consult (Temporal artery biopsy-pain in both temples) 12/31/2024 Travel 12/29/2024 Telephone [facility] [address] [place] [address] Michelle Mohan PA Medication Management (pregabalin (LYRICA) 150 mg capsule/) 12/26/2024 Refill [facility] [address] [place] [address] Michelle Mohan PA Refill Request (Needs refill of Pregabalin 150mg) 12/26/2024 Refill [facility] [address] [place] [address] Michelle Mohan PA Refill Request (Pregabalin) 12/22/2024 2:00 PM LINE PILOT Office Visit [facility] [address] [place] [address] Michelle Mohan PA ER Follow up (Post ER follow up - L sided head pain is now on the R side. Pain never goes away. ) 12/22/2024 Travel 12/21/2024 11:55 AM LINE PILOT Telemedicine [facility] [address] [place] [address] Annie Adam NP Telehealth (Ear infection/No vitals taken -virtual visit./) 12/21/2024 Travel 12/06/2024 Orders Only [facility] Scanner 1 scan: (1-Ord) TIM, CT HEAD/BRAIN WO CON, 12/06/2024 11/28/2024 Telephone [facility] [address] [place] [address] Michelle Mohan PA Appointment Request (Sinus Infection ) 11/28/2024 Nurse Triage [facility] [address] [place] [address] Michelle Mohan PA Error-please disregard 11/28/2024 Telephone [facility] [address] [place] [address] Joanne Donnelly PA Appointment (Inappropriate appt, recommend pt be seen in ER per provider.) 11/27/2024 6:30 PM LINE PILOT Telemedicine [facility] [address] [place] [id number] Ezequiel Clark PA Headache 11/27/2024 Travel 10/21/2024 2:00 PM LINE PILOT Procedure Only [facility] [address] [place] [address] Martha Del Real L Ac Acupuncture 10/20/2024 Travel 10/09/2024 1:00 PM LINE PILOT Procedure Only [facility] [address] [place] [address] Martha Del Real L Ac Acupuncture (Initial) 10/08/2024 Travel 10/06/2024 3:00 PM LINE PILOT Office Visit [facility] [address] [place] [address] Michelle Mohan PA Follow Up (Still has vertigo- ); Lab (Would like some labs done) 10/06/2024 Travel from Last 3 Months Immunizations Name Administration [...] pur e alcohol) stopped 7 years ago PHQ-2 Answer Date Recorded PHQ-2 TOTAL SCORE [...] Ambulatory Vulnerability No t on file 04/17/2024 Utilities Answer Date Recorded Do you have trouble paying f or utilities (for example, heat, electricity, water, phone)? 2 10/06/2024 Comments No Sex and Gender Information Value Date Recorded Sex Assigned at Not on file Legal Sex Female 5:25 AM LINE PILOT Gender Identity Not on file Sexual Orientation [...] Sign Reading Time Taken Comments Blood Pressure 118/79 12/31/2024 9:04 AM LINE PILOT Pulse 94 12/31/2024 9:04 AM LINE PILOT Temperature 35.9 C (96.6 F) 04/17/2024 12:54 PM CDT Respiratory Rate 18 04/17/2024 12:54 PM CDT Oxygen Saturation 95% 12/31/2024 9:04 AM LINE PILOT Inhaled Oxygen Concentration - - Weight 125.2 kg (276 lb) 12/22/2024 2:17 PM LINE PILOT Height 172.7 cm (5' 8) 04/17/2024 12:54 PM CDT Body Mass Index 41.97 04/17/2024 12:54 PM CDT Plan of Treatment Upcoming Encounters Date Type Department Care Team (Late st Contact Info) Description 01/13/2025 2:20 PM LINE PILOT Telemedicine [facility] [address] [place], [place] [address] Lakshmi Lopez PA [address] [facility] [address] [place], [place] [id number] Health Maintenance Due Date Last Done Comments [...] booster 08/25/2032 08/25/2022, 11/2004 (Completed outside of [facility]) HIV for age 15-65 Completed 12/07/2015, , 02/15/2008 Hepatitis C screening for ag e 18-79 Completed 12/07/2015, 08/19/2014 Tdap Completed 08/25/2022 Influenza for age 50-64 Completed 10/06/20, 11/11/2021, 12/07/2015, Additional history exists Procedures Procedure Name Priority Date/Time Associated Diagnosis Comments SCAN-CT INTERPRETATION 12:00 AM LINE PILOT ACUPUNCTURE PLAN OF CARE Routine 10/21/2024 2:04 PM LINE PILOT Vertigo Other chronic pain FERRITIN Routine 10/06/2024 4:04 PM LINE PILOT Anemia, unspecified type RLS (restless legs syndrome) LIPASE Routine 10/06/2024 4:04 PM LINE PILOT Abdominal pain, epigastric BASIC METABOLIC PANEL Routine 10/06/2024 4:04 PM LINE PILOT HTN (hypertension) VITAMIN B12 Routine 10/06/2024 4:04 PM LINE PILOT Anemia, unspecified type CBC WITH AUTO DIFFERENTIAL Routine 10/06/2024 4:04 PM LINE PILOT Anemia, unspecified type HEMOGLOBIN A1C Routine 10/06/2024 4:04 PM LINE PILOT Controlled type 2 diabetes mellitus without complication, unspecified whether mcc insulin use (HC) LIPID PANEL Today 04/17/2024 12:58 PM CDT SCAN-COLONOSCOPY 03/28/2017 12:0 0 AM CDT ANTI HIV 1/2 Routine 12/07/2015 4:24 PM LINE PILOT Screen for STD (sexually transmitted disease) ANTI HCV Routine 12/07/2015 4:24 PM LINE PILOT Screen for STD (sexually transmitted disease) XR FFDM MAMMO UNI ADDL VIEWS RIGHT (IA) Routine 11/28/2012 9:48 AM LINE PILOT Fibroadenoma of breast from Last 3 Months or Most Recently Relevant to Health Maintenance Results * SCAN-CT INTERPRETATION (12/06/2024 12:00 AM LINE PILOT) Anatomical Region Laterality Modality Other us Scanner OTHER Final Result * (ABNORMAL) HEMOGLOBIN A1C (10/06/2024 4:04 PM LINE PILOT) Pathologist [facility] HEMOGLOBIN A1C 6.0(H) <5.7 % of total Hgb [facility] Comment: For someone without known diabetes, [...] BLOOD SPECIMEN / Unknown 10/06/2024 4:04 PM LINE PILOT 10/06/2024 4:06 PM LINE PILOT Narrative [facility] - 10/07/2024 3:56 AM LINE PILOT FASTING:NO FASTING: NO Michelle LINARES CHEMISTRY Final R esult [facility] [address] [place] [address], [facility] [place] [address] [place] [address] * (ABNORMAL) CBC AND DIFFERENTIAL (10/06/2024 4:04 PM LINE PILOT) Pathologist [facility] WHITE BLOOD CELL COUNT 6.3 3.8 - 10.8 Thousand/u L [facility] RED BLOOD CELL COUNT 4.92 3.80 - 5.10 Million/uL [facility] HEMOGLOBIN 12.7 11.7 - [...] BLOOD SPECIMEN / Unknown 10/06/2024 4:04 PM LINE PILOT 10/06/2024 4:06 PM LINE PILOT Narrative [facility] - 10/07/2024 3:23 AM LINE PILOT FASTING:NO FASTING: NO us Michelle LINARES HEMATOLOGY Final R esult [facility] [address] [place] [address], [place] [phone] [facility] [place] [address] [place] [address] * LIPASE (10/06/2024 4:04 PM LINE PILOT) [facility] LIPASE 46 7 - 60 U/L [facility] Blood BLOOD SPECIMEN / Unknown 10/06/2024 4:04 PM LINE PILOT 10/06/2024 4:06 PM LINE PILOT Narrative [facility] - 10/07/2024 11:46 AM LINE PILOT FASTING:NO FASTING: NO Michelle LINARES CHEMISTRY Final R esult [facility] [address] [place] [address], [place] [phone] [facility] [place] [address] [place] [address] * (ABNORMAL) FERRITIN (10/06/2024 4:04 PM LINE PILOT) [facility] FERRITIN 14(L) 16 - 232 ng/mL [facility] Blood BLOOD SPECIMEN / Unknown 10/06/2024 4:04 PM LINE PILOT 10/06/2024 4:06 PM LINE PILOT Narrative [facility] - 10/07/2024 6:06 AM LINE PILOT FASTING:NO FASTING: NO Michelle LINARES CHEMISTRY Final R esult [facility] [address] [place] [address], [place] [phone] [facility] [place] [address] [place] [address] * VITAMIN B12 (10/06/2024 4:04 PM LINE PILOT) [facility] VITAMIN B12 384 200 - 1,100 pg/mL [facility] Comment: Please Note: Although the reference [...] BLOOD SPECIMEN / Unknown 10/06/2024 4:04 PM LINE PILOT 10/06/2024 4:06 PM LINE PILOT Narrative [facility] - 10/07/2024 6:06 AM LINE PILOT FASTING:NO FASTING: NO Michelle LINARES CHEMISTRY Final R esult [facility] [address] [place] [address], [facility] [address] [place] [address] * BASIC METABOLIC PANEL (10/06/2024 4:04 PM LINE PILOT) [facility] GLUCOSE 118 65 - 139 mg/dL [facility] Comment: Non-fasting reference interval UREA NITROGEN (BUN) 12 7 - 25 mg/dL [facility] CREATININE 0.87 0.50 - 1.03 mg/dL [facility] EGFR 79 > OR = 60 mL/min/1. 73m2 [facility] BUN/CREATININE RATIO SEE NOTE: 6 - 22 (calc) [facility] Comment: Not Reported: BUN and Creatinine are within reference range. SODIUM 142 135 - 146 mmol/L [facility] POTASSIUM 4.3 3.5 - 5.3 mmol/L [facility] CHLORIDE 107 98 - 110 mmol/L [facility] CARBON DIOXIDE 25 20 - 32 mmol/L [facility] ELECTROLYTE BALANCE 10 7 - 17 mmol/L (calc) [facility] CALCIUM 9.1 8.6 - 10.4 mg/dL [facility] Blood BLOOD SPECIMEN / Unknown 10/06/2024 4:04 PM LINE PILOT 10/06/2024 4:06 PM LINE PILOT Narrative [facility] - 10/07/2024 11:46 AM LINE PILOT FASTING:NO FASTING: NO Michelle LINARES CHEMISTRY Final R esult [facility] [address] [place] [address], [facility] [address] [place] [address] * (ABNORMAL) LIPID PANEL (04/17/2024 12:58 PM CDT) [facility] CHOLESTEROL,TOTAL 197 100 - 199 mg/dL 04/17/2024 1:57 PM CDT [facility] [employer] [facility] Comment: Cholesterol, Total Reference Ranges Desirable <200 mg/dL Borderline 200-239 mg/dL High >=240 mg/dL TRIGLYCERIDES 102 <150 mg/dL 04/17/2024 1:57 PM CDT [facility] HDL CHOLESTEROL 48 >40 mg/dL 1:57 PM CDT [facility] NON-HDL CHOLESTEROL 149(H) <145 mg/dl 04/17/2024 1:57 PM CDT [facility] CHOL/HDL RATIO 4.10 <4.50 04/17/2024 1:57 PM CDT [facility] LDL CHOLESTEROL 129 <=130 mg/dL 04/17/2024 1:57 PM CDT [facility] VLDL CHOLESTEROL 20 <=30 mg/dL 04/17/2024 1:57 PM CDT [facility] PROVIDER ORDERED STATUS RANDOM 04/17/2024 1:57 PM CDT [facility] Blood BLOOD SPECIMEN / Unknown Butterfly / Unknown 04/17/2024 12:58 PM CDT 04/17/2024 1:31 PM CDT Tiffanie Coughlin NP CHEMISTRY Fin al Result [facility] [address] [place] [address], [place] * SCAN-COLONOSCOPY (03/28/2017 12:00 AM CDT) Scanner OTHER Final Result * ANTI HCV (12/07/2015 4:24 PM LINE PILOT) HEPATITIS C ANTIBODY Non-Reacti ve Non-Reacti ve 12/08/2015 1:27 PM LINE PILOT [facility] Blood specimen (specimen) BLOOD SPECIMEN / Unknown Venipuncture / Unknown 12/07/2015 4:24 PM LINE PILOT 12/07/2015 4:24 PM LINE PILOT Narrative [facility] - 12/08/2015 1:27 PM LINE PILOT Antibodies to HCV not detected; does not exclude the possibility of exposure to HCV. Michelle LINARES SEND OUTS Final R esult Performing Organization Address City/[facility]/ZIP Co de Phone Number [facility] [address] [place] [id number], [place] * ANTI HIV 1/2 (12/07/2015 4:24 PM LINE PILOT) Pathologist [facility] HIV-1/HIV-2 ANTIBODY Non-Reacti ve Non-Reacti ve 12/08/2015 1:21 PM LINE PILOT [facility] Blood specimen (specimen) BLOOD SPECIMEN / Unknown Venipuncture / Unknown 12/07/2015 4:24 PM LINE PILOT 12/07/2015 4:24 PM LINE PILOT Narrative [facility] - 12/08/2015 1:21 PM LINE PILOT HIV-1 p24 and HIV-1/HIV-2 Ab not detected Michelle LINARES SEND OUTS Final R esult [facility] [address] [place] [address], [place] * XR FFDM MAMMO UNI ADDL VIEWS RIGHT (11/28/2012 9:48 AM LINE PILOT) Anatomical Region Laterality Modality BREASTS, Breast Right Right Mammograph y Narrative 11/29/2012 6:42 AM LINE PILOT RIGHT BREAST DIGITAL DIAGNOSTIC MAMMOGRAM WITH ADDITIONAL VIEWS, 11/28/2012 CLINICAL HISTORY: 42-year-old woman who had an ultrasound guided core biopsy of a 2.9 cm mass in the upper outer quadrant of the RIGHT mid breast at the 10 o'clock position at the [facility] on 11/08/2012 which yielded a fibroadenoma. Because [...] at the 10 o'clock position at the [facility] on 11/08/2012which yielded a fibroadenoma. Because of [...] Maintenance Insurance MEDICARE PART A HB ONLY [facility] MEDIC[facility] PPS [address] [place] [id number] Advance Directives * Full Code (Latest Code Status on File) Date Activated Date Inactivated Comments 04/17/2024 12:56 PM 04/17/2024 6:32 PM Question Answer Comments Code Status Discussion: Reviewed Preferences * Full Code Date Activated Date Inactivated Comments 10/21/2013 9:55 PM 10/22/2013 3:18 PM * Full Code Date Activated Date Inactivated Comments 12/11/2012 9:39 AM 12/11/2012 4:36 PM Care Teams Launch Engineer Relationship Specialty Start Date End Date Michelle Mohan PA [address] [facility] [place] [address] PCP - General Physician Mold Burner 02/14/21 [facility] [place] [address] [place] [address] 05/31/22 [facility] [place] [address] [address] 09/05/23
--- OUTSIDE RECORDS SUMMARY | 2025-01-06 10:36 | XMS_ITS | Clinical Summary ---
Author Organization [facility] Address [address] [place] [address]. [place] [address] Support Name Relationship Address Phone Reyes Zheng Personal Relationship [address] [place] [address] Salas Norm Personal Relationship Unknown [phone] Care Team Providers Care Prosthetic Makeup Designer Name Role Phone [facility], [facility] Primary [...] on file Legal Sex Female 3:10 AM VOLUNTEER SERVICES SPECIALIST Gender Identity Not on file Sexual Orientation Not on file Last Filed Vital Signs Vital Sign Reading Time Taken Comments Blood Pressure 170/100 03/17/2024 2:38 PM CDT Pulse 78 03/17/2024 2:38 PM CDT Temperature - - Respiratory Rate 18 11/02/2012 1:28 AM VOLUNTEER SERVICES SPECIALIST Oxygen Saturation 95% 03/02/2018 11: 42 [...] sDNA (Cologuard) 1969 YEARLY PREVENTIVE VISIT 1972 HEPATITIS B IMMUNIZATION (1 of 3 - [...] (2 - Td or Tdap) 08/25/2032 08/25/2022 HEPATITIS C SCREENING Completed 12/07/2015 HIV SCREENING Completed 12/07/2015 HPV IMMUNIZATION Aged Out No longer e ligible based on patient's age to complete this topic MENINGITIS IMMUNIZATION Aged Out No l onger eligible based on patient's age to complete this topic Procedures Procedure Name Priority Date/Time Associated Diagnosis Comments CT CHEST ABDOMEN PELVIS W/ CONTRAST 11/02/2012 12:51 AM VOLUNTEER SERVICES SPECIALIST COMPREHENSIVE METABOLIC PANEL STAT 11/01/2012 9:40 PM VOLUNTEER SERVICES SPECIALIST from Last 3 Months or Most Recently Relevant to Health Maintenance Results * CT Chest abdomen pelvis w contrast* (11/02/2012 12:51 AM VOLUNTEER SERVICES SPECIALIST) Anatomical Region Laterality Modality Abdomen, Chest, Pelvis, Hip Comp uted Tomography 11/02/2012 12:5 1 AM VOLUNTEER SERVICES SPECIALIST Impressions 11/02/2012 3:41 PM VOLUNTEER SERVICES SPECIALIST IMPRESSION: 1. No evidence of dissection or other acute abnormality. 2. Right breast mass measures 2.8 cm. Diagnostic mammography and ultrasound recommended. 3. Agree with preliminary report provided by Dr. Guzman. DOMINIK SHEPARD MD Narrative 11/02/2012 3:[address]ER [address] CHEST, ABDOMEN AND PELVIS WITH [...] * Comprehensive metabolic panel (11/01/2012 9:40 PM VOLUNTEER SERVICES SPECIALIST) Sodium 136 133 - 144 mmol/L [facility] Potassium 3.5 3.4 - 5.3 mmol/L [facility] Chloride 101 94 - 109 mmol/L [facility] Carbon Dioxide 26 20 - 32 mmol/L [facility] Anion Gap 8 6 - 17 mmol/L [facility] Glucose 99 60 - 99 mg/dL [facility] Urea Nitrogen 11 5 - 24 mg/dL [facility] Creatinine 0.77 0.52 - 1.04 mg/dL [facility] GFR Estimate 82 >60 mL/min/1.7 m2 [facility] GFR Estimate If Black >90 >60 mL/min/1.7 m2 [facility] Calcium 9.4 8.5 - 10.4 mg/dL [facility] Bilirubin Total 0.4 0.2 - 1.3 mg/dL [facility] Albumin 4.4 3.9 - 5.1 g/dL [facility] Protein Total 7.7 6.8 - 8.8 g/dL [facility] Alkaline Phosphatase 124 40 - 150 U/L [facility] ALT 38 0 - 50 U/L [facility] AST 27 0 - 45 U/L [facility] Blood specimen (specimen) 11/01/2012 9:40 PM VOLUNTEER SERVICES SPECIALIST 11/01/2012 10:42 PM VOLUNTEER SERVICES SPECIALIST us Hima Keys MD LAB - BLOOD ORDERABLES Final Result [facility] [address] [place] [id number] [phone] from Last 3 Months or Most Recently Relevant to Health Maintenance Insurance [facility] Care Teams Prosthetic Makeup Designer Relationship Specialty Start Date End Date [address] [id number] PCP - General 11/01/12
--- OUTSIDE RECORDS SUMMARY | 2025-01-06 10:37 | XMS_ITS | CCD ---
Author Organization Unknown Care Team Providers Care Applier Name Role Phone [place], [place] Primary Care Provider Unava ilable Unavailable Chronic Care Management Unavaila ble Summary Purpose [employer] Insurance Providers Payer name Policy type / Coverage type Covered constitution party ID Effective Begin Date Effective End Date [employer] [id number] Unkn own [employer] [id number] Unkn own Family History Family History data not found Medication Administered No Medication Administered data Reason For Visit No Reason For Visit data
[2025-01-06 10:51] VITALS: BMI 41.8
[2025-01-06] MEDS: SODIUM CHLORIDE 0.9 % (FLUSH) 10 ML SYRINGE IVF (11:15)
[2025-01-06] MEDS: 0.9 % SODIUM CHLORIDE 500 ML 500 ML 100 ML IV ×2 (11:15→12:30)
--- NOTE | 2025-01-06 11:19 | W.PM.H&PU ---
History & Physical Update History & Physical Update H&P Reviewed and patient assessed: No changes noted
[2025-01-06 11:21] VITALS: BP 120/85; PULSE 86; RESP 20; TEMP 36.8; O2SAT 96
[2025-01-06] MEDS: CEFAZOLIN 2 GM INJ IVP (11:38)
[2025-01-06] MEDS: LIDOCAINE 1% MDV 3 ML INJECTION (11:45)
[2025-01-06] MEDS: BUPIVACAINE 0.25% 30 ML INJECTION (11:45)
[2025-01-06] MEDS: BUPIVACAINE 0.25% 30 ML 6 ML INJECTION (12:27)
[2025-01-06] MEDS: LIDOCAINE 1% MDV 6 ML INJECTION (12:27)
[2025-01-06 13:00] VITALS: BP 90/56; PULSE 92; RESP 18; TEMP 36.1; O2SAT 95
--- NOTE | 2025-01-06 13:00 | PM.GSPRC ---
Operative Note Date of procedure: 01/06/25 Pre-op diagnosis: Temporal arteritis Post-op diagnosis: Same Type of Procedure: Bilateral temporal artery biopsy Indications: Patient is a 54-year-old female who presented to clinic with new onset headaches and elevated inflammatory markers. There was concern by her primary care provider for possible temporal arteritis. Risks and benefits of biopsy were discussed at length with the patient. Risks included, but were not limited to: Bleeding, infection, risk of damage to surrounding structures and possible need for additional procedures. All questions and concerns were addressed with patient agreeing to proceed. Procedure Description: After discussing the risks and benefits of the procedure, the patient signed informed consent.? The operative site was marked and the patient was brought to the operating room and placed on the operating table in supine position.? Care was taken to pad the patient's pressure points.?? The patient was then given sedation by anesthesia.?? The operative site was then prepped and draped in the usual sterile fashion.? A time-out was then performed. Attention was first directed to the right side. The handheld Doppler was utilized to monse out the course of the temporal artery. Local anesthetic was utilized to numb up the area. A 15 blade was used to make an approximate 5 cm incision. Cautery was then used to divide the subcutaneous tissue and assure hemostasis. The artery was visualized within the temporoparietal fascia, which was entered with sharp dissection. A proximal portion of the artery was dissected out and ligated with 3 0 Vicryl. The dissection was then carried distally. The artery was transected in the middle of the specimen and tied off with a 3-0 Vicryl during dissection. The distal dissection was then carried out for approximately 2 cm and ligated. The specimen was in 2 pieces and carefully removed, trying to limit manipulation of the vessel itself, and passed off to the back table. Again hemostasis was assured and the incision closed with interrupted 3 0 Vicryl and running 4 Monocryl. Attention was then directed to the left side. The area was prepped and draped. The handheld Doppler was utilized to monse out the course of the temporal artery. Local anesthetic was utilized to numb up the area. A 15 blade was used to make an approximate 5 cm incision. Cautery was then used to divide the subcutaneous tissue and assure hemostasis. The artery was visualized within the temporoparietal fascia, which was entered with sharp dissection. A proximal portion of the artery was dissected out and ligated with 3 0 Vicryl. The dissection was then carried distally for approximately 2 cm and ligated. The specimen was carefully removed, trying to limit manipulation of the vessel itself, and passed off to the back table. Again hemostasis was assured and the incision closed with interrupted 3 0 Vicryl and running 4 Monocryl. Sterile dressings were then applied. ? The patient was then woken and transported to the recovery area in stable condition. ? The patient tolerated the procedure well. Findings: Bilateral temporal arteries. Normal in appearance. Anesthesia: MAC and local Surgeon: Chelsy Barker MD Estimated blood loss (mL): 5 Additional Specimen Information: 1. Right temporal artery 2. Left temporal artery Condition: stable Disposition: PACU
--- NOTE | 2025-01-06 13:09 | P.ANES_ITS ---
Anesthesia Charges Start Date/Time Anesthesia Start Date: 01/06/25 Anesthesia Start Time: 11:20 Stop Date/Time Anesthesia Stop Date: 01/06/25 Anesthesia Stop Time: 13:06 Coding CPT Codes CPT Codes: ANESTH NECK VESSEL SURGERY - 40074 ([id number]) P3 - PATIENT W/SEVERE SYS DISEASE, QK - POLE MAKER 2-4 CNCRNT ANES PROC, QX - [employer] OFFICER SVC W/ MD MED DIRECTION
--- NOTE | 2025-01-06 13:09 | P.ANES_ITS ---
Anesthesia Charges Start Date/Time Anesthesia Start Date: 01/06/25 Anesthesia Start Time: 11:20 Stop Date/Time Anesthesia Stop Date: 01/06/25 Anesthesia Stop Time: 13:06 Coding CPT Codes CPT Codes: ANESTH NECK VESSEL SURGERY - 36681 ([id number]) P3 - PATIENT W/SEVERE SYS DISEASE, QK - CNC MACHINE OPERATOR 2-4 CNCRNT ANES PROC, QX - HELMET HAT PUNCHER SVC W/ MD MED DIRECTION
--- NOTE | 2025-01-06 13:09 | W.ANESCHARGE ---
Anesthesia Charges Start Date/Time Anesthesia Start Date: 01/06/25 Anesthesia Start Time: 11:20 Stop Date/Time Anesthesia Stop Date: 01/06/25 Anesthesia Stop Time: 13:06 Coding CPT Codes CPT Codes: ANESTH NECK VESSEL SURGERY - 84856 ([id number]) P3 - PATIENT W/SEVERE SYS DISEASE, QK - ASSOCIATE VETERINARIAN 2-4 CNCRNT ANES PROC, QX - SAUSAGE INSPECTOR SVC W/ MD MED DIRECTION
--- NOTE | 2025-01-06 13:09 | W.ANESCHARGE ---
Anesthesia Charges Start Date/Time Anesthesia Start Date: 01/06/25 Anesthesia Start Time: 11:20 Stop Date/Time Anesthesia Stop Date: 01/06/25 Anesthesia Stop Time: 13:06 Coding CPT Codes CPT Codes: ANESTH NECK VESSEL SURGERY - 88130 ([id number]) P3 - PATIENT W/SEVERE SYS DISEASE, QK - STAFF ATTORNEY 2-4 CNCRNT ANES PROC, QX - DECORATING MACHINE TENDER SVC W/ MD MED DIRECTION
[2025-01-06 13:15] VITALS: BP 92/42; PULSE 86; RESP 16; O2SAT 93
[2025-01-06 13:30] VITALS: BP 114/79; PULSE 98; RESP 16; O2SAT 96
[2025-01-06] MEDS: HYDROCODONE-ACETAMIN 5-325 MG 1 TAB PO (13:32)
[2025-01-06 13:45] VITALS: BP 100/66; PULSE 95; RESP 16; TEMP 36.4; O2SAT 98
== END 2025-01-06 14:05 | disposition home or self-care (01) ==
PROVIDERS: PCP Physician Assistant Medical; Visit Provider Surgery
PROC: (CPT 37609; principal; 2025-01-06 11:45)
DX: M31.6 Other giant cell arteritis (principal); R51.9 Headache, unspecified; E11.9 Type 2 diabetes mellitus without complications; Z79.85 Long-term (current) use of injectable non-insulin antidiabetic drugs
CPT/HCPCS: 37609; 00352; 76998; 82962; 88305; J2003; A9270; J0665; J0690; J2250; J2405; J2704; J3490; J7030